=== PATIENT | female | born 1935 | race Caucasian/White ===

== ENCOUNTER 2018-01-15 16:49 | Emergency (ER) | payer MEDICARE, OTHER ==
[2018-01-15] MEDS ORDERED: Sodium Chloride 0.9% 10 ML Syringe FLUSH PRN (17:24)
[2018-01-15 18:06] LABS: ANION GAP 7.3 mmol/L (10-20)
[2018-01-15] MEDS: Iopamidol 612 MG/ML 100 ML Bottle IVPUSH ONE (18:59)
--- NOTE | 2018-01-15 19:06 | EDM.PDOC ---
<Justin Coffman W - Last Filed: 01/15/18 19:06> ED HPI GENERAL MEDICAL PROBLEM - General Chief Complaint: General Time Seen by Provider: 01/15/18 16:58 Source of Information: Reports: Patient, Family History Limitations: Reports: No Limitations - History of Present Illness INITIAL COMMENTS - FREE TEXT/NARRATIVE: Pt presents to ER with complaints of "pounding" sensation in her head that she has been experiencing intermittently for the past several days. She states that she has been checking her BP and notes that the pounding is present more often when her BP is elevated. Denies any head trauma. She states that this has never happened before in the past. She denies any recent illness. Does complain of some mild intermittent R sided headache the accompanies the pounding. She denies any "wooshing" or mechanical noises. Seems to isolate to R side. No facial numbness or extremity weakness/paresthesia. No difficulty with speech or ambulation. - Related Data Allergies Allergy/AdvReac Type Severity Reaction Status Date / Time atorvastatin [From Lipitor] Allergy Other Verified 01/15/18 17:19 Rbcayqy-Fad-Eoa Reductase Allergy Other Verified 01/15/18 17:19 Inhibitor Home Meds: Home Meds Aspirin [Halfprin] 81 mg PO DAILY 03/03/15 [History] Cholecalciferol (Vitamin D3) [Vitamin D3] 1,000 units PO DAILY 03/03/15 [History ] Lisinopril 10 mg PO DAILY 03/03/15 [History] Metoprolol Succinate [Toprol XL] 0.5 tab PO DAILY 03/03/15 [History] glipiZIDE [Glipizide ER] 10 mg PO BID 03/03/15 [History] sitaGLIPtin Phos/Metformin HCl [Janumet 50-1,000 MG] 1 tab PO BID 03/03/15 [ History] Multivitamin with Minerals [Multiple Vitamin] 1 tab PO DAILY 01/15/18 [History] Oxybutynin 5 mg PO BID 01/15/18 [History] Pioglitazone [Actos] 15 mg PO DAILY 01/15/18 [History] Past Medical History HEENT History: Reports: Other (See Below) Other HEENT History: hearing loss Cardiovascular History: Reports: High Cholesterol, Hypertension Other Gastrointestinal History: malignant neoplasm of colon, Genitourinary History: Reports: Other (See Below) Other Genitourinary History: mixed incontinence urge and stress. ecoli UTI Musculoskeletal History: Reports: Osteoarthritis, Other (See Below) Other Musculoskeletal History: trochanteric bursitis Psychiatric History: Reports: Anxiety Endocrine/Metabolic History: Reports: Diabetes, Type II Oncologic (Cancer) History: Reports: Colon - Past Surgical History GI Surgical History: Reports: Appendectomy, Cholecystectomy, Colon, Colonoscopy Other GI Surgeries/Procedures: colon resection 1999, Social & Family History - Tobacco Use Smoking Status *Q: Never Smoker - Recreational Drug Use Recreational Drug Use: No ED ROS GENERAL - Review of Systems Review Of Systems: See Below Constitutional: Reports: No Symptoms HEENT: Reports: No Symptoms Respiratory: Reports: No Symptoms Cardiovascular: Reports: No Symptoms Endocrine: Reports: No Symptoms GI/Abdominal: Reports: No Symptoms : Reports: No Symptoms Musculoskeletal: Reports: No Symptoms Skin: Reports: No Symptoms Neurological: Reports: Headache, Other (see HPI) Psychiatric: Reports: No Symptoms Hematologic/Lymphatic: Reports: No Symptoms Immunologic: Reports: No Symptoms ED EXAM, GENERAL - Physical Exam Exam: See Below Exam Limited By: No Limitations General Appearance: Alert, WD/WN, No Apparent Distress Eye Exam: Bilateral Eye: EOMI, Normal Fundi, Normal Inspection, PERRL Head: Atraumatic, Normocephalic Neck: Normal Inspection, Supple, Non-Tender, Full Range of Motion Respiratory/Chest: No Respiratory Distress, Lungs Clear, Normal Breath Sounds, No Accessory Muscle Use, Chest Non-Tender Cardiovascular: Normal Peripheral Pulses, Regular Rate, Rhythm, No Edema, No Gallop, No JVD, No Murmur, No Rub Peripheral Pulses: 4+: Radial (L), Radial (R) GI/Abdominal: Normal Bowel Sounds, Soft, Non-Tender, No Organomegaly, No Distention, No Abnormal Bruit, No Mass (Female) Exam: Deferred Rectal (Female) Exam: Deferred Back Exam: Normal Inspection, Full Range of Motion, NT Extremities: Normal Inspection, Normal Range of Motion, Non-Tender, Normal Capillary Refill, No Pedal Edema Neurological: Alert, Oriented, CN II-XII Intact, Normal Cognition, Normal Gait, Normal Reflexes, No Motor/Sensory Deficits Psychiatric: Normal Affect, Normal Mood Skin Exam: Warm, Dry, Intact, Normal Color, No Rash Lymphatic: No Adenopathy Course - Vital Signs Last Recorded V/S: Last Vital Signs Temp 36.8 C 01/15/18 16:55 Pulse 83 01/15/18 16:55 Resp 18 01/15/18 16:55 BP 155/80 H 01/15/18 16:55 Pulse Ox 94 L 01/15/18 16:55 - Orders/Labs/Meds Orders: Active Orders 24 hr Category Date Time Status Ang Head [CT] Stat Exams 01/15/18 17:25 Taken CTA Neck W & W/O Contrast [Ang Neck] [CT] Stat Exams 01/15/18 17:25 Taken Sodium Chloride 0.9% [Saline Flush] Med 01/15/18 17:24 Active 10 ml FLUSH ASDIRECTED PRN Peripheral IV Insertion Adult [OM.PC] Routine Oth 01/15/18 17:25 Ordered Medication Orders Sodium Chloride (Saline Flush) 10 ml FLUSH ASDIRECTED PRN PRN Reason: Keep Vein Open Labs: Laboratory Tests 01/15/18 01/15/18 01/15/18 Range/Units 17:35 17:35 17:35 WBC 4.7 (4.0-10.0) x10^3/uL RBC 4.29 (4.00-5.50) x10^6/uL Hgb 13.4 (12.0-16.0) g/dL Hct 39.0 (33.0-47.0) % MCV 90.9 (78.0-93.0) fL MCH 31.2 (26.0-32.0) pg MCHC 34.4 (32.0-36.0) g/dL RDW Coeff of Blanka 13.6 (10.0-15.0) % Plt Count 131 (130-400) x10^3/uL Neut % (Auto) 48.8 L (50.0-80.0) % Lymph % (Auto) 39.5 (25.0-50.0) % Blanco % (Auto) 7.7 (2.0-11.0) % Eos % (Auto) 3.6 (0.0-4.0) % Baso % (Auto) 0.4 (0.2-1.2) % PT 10.2 (9.6-11.4) SEC INR 1.0 L (2.0-3.5) Sodium 133 L (136-145) mmol/L Potassium 4.3 (3.5-5.1) mmol/L Chloride 106 (98-107) mmol/L Carbon Dioxide 24 (21-32) mmol/L Anion Gap 7.3 L (10-20) mmol/L BUN 14 (7-18) mg/dL Creatinine 0.9 (0.55-1.02) mg/dL Est Cr Clr Drug Dosing 46.94 mL/min Estimated GFR (MDRD) 60 Glucose 180 H (74-106) mg/dL Calcium 10.1 (8.5-10.1) mg/dL Corrected Calcium 10.66 H (8.5-10.1) mg/dL Total Bilirubin 0.2 (0.2-1.0) mg/dL AST 15 (15-37) U/L ALT 24 (14-59) U/L Alkaline Phosphatase 94 (46-116) U/L C-Reactive Protein 0.2 (<=0.9) mg/dL Total Protein 6.9 (6.4-8.2) g/dL Albumin 3.3 L (3.4-5.0) g/dL Globulin 3.6 Albumin/Globulin Ratio 0.92 Meds: Medications Generic Name Dose Route Start Last Admin Trade Name Freq PRN Reason Stop Dose Admin Sodium Chloride 10 ml 01/15/18 17:24 Saline Flush FLUSH ASDIRECTED PRN Keep Vein Open Discontinued Medications Generic Name Dose Route Start Last Admin Trade Name Freq PRN Reason Stop Dose Admin Iopamidol 100 ml 01/15/18 18:45 01/15/18 18:59 Isovue-300 (61%) IVPUSH 01/15/18 18:46 100 ml ONETIME ONE Administration Departure - Departure Disposition: Home, Self-Care 01 Clinical Impression: Hypertension - Discharge Information Instructions: Managing Your Hypertension, Hypertension Referrals: Josefa Nguyen DO [Primary Care Provider] - Forms: ED Department Discharge Additional Instructions: Please follow up with Dr. Nguyen regarding your headaches. These are likely a result of high blood pressure. You had a normal CTA of the head and neck. Drink plenty of water. If you have any questions or concerns, you can call at any time. <Momo Walton - Last Filed: 01/15/18 20:04> Departure - Departure Time of Disposition: 20:04 Condition: Good - Discharge Information *PRESCRIPTION DRUG MONITORING PROGRAM REVIEWED*: Not Applicable *COPY OF PRESCRIPTION DRUG MONITORING REPORT IN PATIENT BARRETT: Not Applicable - Problem List & Annotations (1) Hypertension SNOMED Code(s): 85678709 Code(s): I10 - ESSENTIAL (PRIMARY) HYPERTENSION Status: Acute Priority: Low Current Visit: Yes Qualifiers: Hypertension type: unspecified Qualified Code(s): I10 - Essential (primary ) hypertension - Problem List Review Problem List Initiated/Reviewed/Updated: Yes - Assessment/Plan Assessment:: headache hypertension Plan: Please follow up with Dr. Nguyen regarding your headaches. These are likely a result of high blood pressure. You had a normal CTA of the head and neck. Drink plenty of water. If you have any questions or concerns, you can call at any time.
== END 2018-01-15 20:11 | disposition home or self-care (01) ==
LOC: VM.ED 16:49
DX: I10 Essential (primary) hypertension (principal); E11.9 Type 2 diabetes mellitus without complications; E78.00 Pure hypercholesterolemia, unspecified; F41.9 Anxiety disorder, unspecified; Z79.84 Long term (current) use of oral hypoglycemic drugs; Z79.82 Long term (current) use of aspirin; Z79.899 Other long term (current) drug therapy; Z88.8 Allergy status to other drugs, medicaments and biological substances
CPT/HCPCS: 36415; 70496; 70498; 80053; 85025; 85610; 86140; 99284; Q9967; 99283-GF

== ENCOUNTER 2018-10-10 10:18 | Emergency (ER) | payer MEDICARE, OTHER ==
--- NOTE | 2018-10-10 11:01 | EDM.PDOC ---
ED HPI GENERAL MEDICAL PROBLEM - General Chief Complaint: Lower Extremity Injury/Pain Stated Complaint: LOWER LIMB Time Seen by Provider: 10/10/18 10:26 Source of Information: Reports: Patient History Limitations: Reports: No Limitations - History of Present Illness INITIAL COMMENTS - FREE TEXT/NARRATIVE: Patient reports a fall in July and has had back, hip and leg pain since. She has been in physical therapy and did have this yesterday. She reports they told her to get x-rays. She states she has pain that starts in the bilateral lower back that radiates down both legs. Denies numbness and tingling. Is able to walk but is painful. She denies headache, fever, chills, chest pain, SOB, chronic diarrhea from removal of section of colon due to colon cancer 18 years ago. She also denies blood in urine or stools. She has no other complaints. Onset: Gradual Duration: Getting Worse, Intermittent Location: Reports: Back, Lower Extremity, Left, Lower Extremity, Right Quality: Reports: Ache Severity: Moderate Worsens with: Reports: Movement Associated Symptoms: Reports: No Other Symptoms Bilateral Hip Pain Score (Numeric/FACES): 8 - Related Data Allergies Allergy/AdvReac Type Severity Reaction Status Date / Time atorvastatin [From Lipitor] Allergy Other Verified 10/10/18 10:33 Ydyxskr-Egq-Epv Reductase Allergy Other Verified 10/10/18 10:33 Inhibitor Home Meds: Home Meds Aspirin [Halfprin] 81 mg PO DAILY 03/03/15 [History] Cholecalciferol (Vitamin D3) [Vitamin D3] 1,000 units PO DAILY 03/03/15 [History ] Lisinopril 10 mg PO DAILY 03/03/15 [History] Metoprolol Succinate [Toprol XL] 1 tab PO DAILY 03/03/15 [History] glipiZIDE [Glipizide ER] 10 mg PO BID 03/03/15 [History] sitaGLIPtin Phos/Metformin HCl [Janumet 50-1,000 MG] 1 tab PO BID 03/03/15 [ History] Multivitamin with Minerals [Multiple Vitamin] 1 tab PO DAILY 01/15/18 [History] Oxybutynin 5 mg PO BID 01/15/18 [History] Pioglitazone [Actos] 15 mg PO DAILY 01/15/18 [History] Past Medical History HEENT History: Reports: Other (See Below) Other HEENT History: hearing loss Cardiovascular History: Reports: High Cholesterol, Hypertension Other Gastrointestinal History: malignant neoplasm of colon, Genitourinary History: Reports: Other (See Below) Other Genitourinary History: mixed incontinence urge and stress. ecoli UTI Musculoskeletal History: Reports: Osteoarthritis, Other (See Below) Other Musculoskeletal History: trochanteric bursitis Psychiatric History: Reports: Anxiety Endocrine/Metabolic History: Reports: Diabetes, Type II Oncologic (Cancer) History: Reports: Colon - Past Surgical History GI Surgical History: Reports: Appendectomy, Cholecystectomy, Colon, Colonoscopy Other GI Surgeries/Procedures: colon resection 1999, Social & Family History - Tobacco Use Smoking Status *Q: Unknown Ever Smoked Review of Systems - Review of Systems Review Of Systems: See Below Constitutional: Reports: No Symptoms Eyes: Reports: No Symptoms Ears: Reports: No Symptoms Nose: Reports: No Symptoms Mouth/Throat: Reports: No Symptoms Respiratory: Reports: No Symptoms Cardiovascular: Reports: No Symptoms GI/Abdominal: Reports: No Symptoms Genitourinary: Reports: No Symptoms Musculoskeletal: Reports: Back Pain, Leg Pain Skin: Reports: No Symptoms Neurological: Reports: No Symptoms Psychiatric: Reports: No Symptoms ED EXAM, GENERAL - Physical Exam Exam: See Below Exam Limited By: No Limitations General Appearance: Alert, WD/WN, No Apparent Distress Eye Exam: Bilateral Eye: EOMI, Normal Inspection, PERRL Ears: Normal TMs Nose: Normal Inspection, Normal Mucosa, No Blood Throat/Mouth: Normal Inspection, Normal Lips, Normal Teeth, Normal Gums, Normal Oropharynx, Normal Voice, No Airway Compromise Head: Atraumatic, Normocephalic Neck: Normal Inspection, Supple, Non-Tender, Full Range of Motion Respiratory/Chest: No Respiratory Distress, Lungs Clear, Normal Breath Sounds, No Accessory Muscle Use, Chest Non-Tender Cardiovascular: Normal Peripheral Pulses, Regular Rate, Rhythm, No Edema, No Gallop, No JVD, No Murmur, No Rub Peripheral Pulses: 2+: Posterior Tibial (L), Posterior Tibial (R), Dorsalis Pedis (L), Dorsalis Pedis (R) GI/Abdominal: Normal Bowel Sounds, Soft, Non-Tender, No Organomegaly, No Distention, No Abnormal Bruit, No Mass Back Exam: Normal Inspection, Full Range of Motion, NT Extremities: Normal Inspection, Normal Range of Motion, Non-Tender, Normal Capillary Refill, No Pedal Edema Neurological: Alert, Oriented, CN II-XII Intact, Normal Cognition, Normal Gait, Normal Reflexes, No Motor/Sensory Deficits Psychiatric: Normal Affect, Normal Mood Skin Exam: Warm, Dry, Intact, Normal Color, No Rash Lymphatic: No Adenopathy Course - Vital Signs Last Recorded V/S: Last Vital Signs Temp 36.4 C 10/10/18 10:18 Pulse 76 10/10/18 10:18 Resp 18 10/10/18 10:18 BP 156/75 H 10/10/18 10:18 Pulse Ox 96 10/10/18 10:18 - Orders/Labs/Meds Orders: Active Orders 24 hr Category Date Time Status Lumbar Spine wo Cont [CT] Stat Exams 10/10/18 10:27 Ordered Pelvis wo Cont [CT] Stat Exams 10/10/18 10:27 Ordered URINALYSIS W/MICROSCOPIC [UA W/MICROSCOPIC] [URIN] Stat Lab 10/10/18 10:37 Ordered - Radiology Interpretation Free Text/Narrative:: CT of pelvis shows age related degenerative disease with no acute process CT of lumbar spine show several levels of spinal stenosis and foraminal narrowing bilaterally but no acute fractures Departure - Departure Time of Disposition: 12:23 Disposition: Home, Self-Care 01 Condition: Fair Clinical Impression: Urinary tract infection, Lumbar back pain with radiculopathy affecting lower extremity - Discharge Information *PRESCRIPTION DRUG MONITORING PROGRAM REVIEWED*: No *COPY OF PRESCRIPTION DRUG MONITORING REPORT IN PATIENT BARRETT: No Instructions: Urinary Tract Infection, Adult, [id number], Back Exercises, Radicular Pain, Nitrofurantoin tablets or capsules, Probiotics Additional Instructions: Plan 1. Stay well hydrated 2. Take the full course of the antibiotic macrobid even if feeling better. Take 1 tablet twice a day for 5 days. We will call you with any changes you may need to make to the antibiotic 3. Follow up with primary care to have an MRI ordered. Continue with physical therapy 4. Follow up with primary after 7-10 days to be sure urine is clear of infection 5. Take the muscle relaxer twice daily for pain 6. Scans today were negative for any acute fractures 7. Please call if you have any other questions or concerns - Problem List & Annotations (1) Lumbar back pain with radiculopathy affecting lower extremity SNOMED Code(s): 311186540, 510660288 Code(s): M54.16 - RADICULOPATHY, LUMBAR REGION Status: Acute Priority: Medium Current Visit: Yes (2) Urinary tract infection SNOMED Code(s): 50113903 Code(s): N39.0 - URINARY TRACT INFECTION, SITE NOT SPECIFIED Status: Acute Priority: Low Current Visit: Yes Qualifiers: Urinary tract infection type: site unspecified Hematuria presence: without hematuria Qualified Code(s): N39.0 - Urinary tract infection, site not specified - Problem List Review Problem List Initiated/Reviewed/Updated: Yes - My Orders Last 24 Hours: My Active Orders 10/10/18 10:27 Lumbar Spine wo Cont [CT] Stat Pelvis wo Cont [CT] Stat 10/10/18 10:37 URINALYSIS W/MICROSCOPIC [UA W/MICROSCOPIC] [URIN] Stat - Assessment/Plan Last 24 Hours: My Active Orders 10/10/18 10:27 Lumbar Spine wo Cont [CT] Stat Pelvis wo Cont [CT] Stat 10/10/18 10:37 URINALYSIS W/MICROSCOPIC [UA W/MICROSCOPIC] [URIN] Stat Assessment:: lumbar pain with bilateral radiculopathy to lower extremities Plan: Plan 1. Stay well hydrated 2. Take the full course of the antibiotic macrobid even if feeling better. Take 1 tablet twice a day for 5 days. We will call you with any changes you may need to make to the antibiotic 3. Follow up with primary care to have an MRI ordered. Continue with physical therapy 4. Follow up with primary after 7-10 days to be sure urine is clear of infection 5. Take the muscle relaxer twice daily for pain 6. Scans today were negative for any acute fractures 7. Please call if you have any other questions or concerns
--- NOTE | 2018-10-10 11:41 | CT ---
[id number] CT/CT Lumbar Spine WO IV Exam: CT Lumbar Spine WO IV Clinical Data: BACK PAIN COMPARISON: NO PREVIOUS SIMILAR EXAM IS AVAILABLE FINDINGS: L5-S1: There are degenerative facet changes. There is moderate bilateral foraminal narrowing. L4-L5: There is severe spinal stenosis. There is posterior osteophyte. There is severe bilateral foraminal narrowing. L3-L4: There is severe spinal stenosis. There is severe bilateral foraminal narrowing. There is posterior osteophyte. There is ligamentum flavum hypertrophy. L2-L3: There is borderline spinal stenosis. There is moderate bilateral foraminal narrowing. L1-L2: There is extreme spinal stenosis. There is severe bilateral foraminal narrowing. T12-L1: There are degenerative facet changes. T11-T12: There are degenerative facet changes. 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 Ricardo Sampson MD 10/10/18 [id number] Thank you for allowing us to participate in the care of your patient.
--- NOTE | 2018-10-10 11:42 | CT ---
[id number] CT/CT Pelvis WO IV Exam: CT Pelvis WO IV Clinical Data: BACK PAIN COMPARISON: NO PREVIOUS SIMILAR EXAM IS AVAILABLE FINDINGS: There is uncomplicated diverticular disease. There are degenerative changes of the sacroiliac joints and both hips. There are diffuse atheromatous calcifications. There appeared to residual fibroid changes of uterus. IMPRESSION: AGE-RELATED DEGENERATIVE CHANGES. Ricardo Sampson MD 10/10/18 [id number] Thank you for allowing us to participate in the care of your patient.
== END 2018-10-10 12:23 | disposition home or self-care (01) ==
LOC: VM.ED 10:18
DX: M48.061 Spinal stenosis, lumbar region without neurogenic claudication (principal); M54.16 Radiculopathy, lumbar region; N39.0 Urinary tract infection, site not specified; E78.00 Pure hypercholesterolemia, unspecified; I10 Essential (primary) hypertension; E11.9 Type 2 diabetes mellitus without complications; F41.9 Anxiety disorder, unspecified; Z88.8 Allergy status to other drugs, medicaments and biological substances; Z79.82 Long term (current) use of aspirin
CPT/HCPCS: 72131; 72192; 81001; 87086; 87088; 87186; 99284-25

== ENCOUNTER 2019-04-13 10:13 | Emergency (ER) | payer MEDICARE, OTHER ==
[2019-04-13] MEDS ORDERED: Sodium Chloride 0.9% 10 ML Syringe FLUSH PRN (10:34)
[2019-04-13] MEDS ORDERED: Ondansetron 4 MG/2 ML SDV IVPUSH ONE (10:36)
[2019-04-13] MEDS ORDERED: Sodium Chloride 0.9% 1,000 ML IV ONE (10:36)
--- NOTE | 2019-04-13 10:42 | EDM.PDOC ---
ED HPI GENERAL MEDICAL PROBLEM - General Chief Complaint: Gastrointestinal Problem Stated Complaint: abd pain Time Seen by Provider: 04/13/19 10:18 Source of Information: Reports: Patient History Limitations: Reports: No Limitations - History of Present Illness INITIAL COMMENTS - FREE TEXT/NARRATIVE: Patient comes into the emergency department with severe abdominal pain, nausea, vomiting. Patient states her symptoms started last evening after supper. She does admit to having similar symptoms about 1 week ago but they did resolve on their own after about one day. She states that last evening the symptoms came on abruptly and have been consistent. She states that she has vomited at least 5 -6 times. She also states that she has significant nausea with this. She endorses that she has had loose bowel movements and 1 in which she was unable to make to the bathroom in time. Patient does state that they have an indoor dog and cat. Strong urine and feces order is noted from the patient. Fecal content is also noted on the patient's socks and pants along with large amount of animal hair. Patient states that she has felt warm but she does not recall having a fever but has body aches. Patient also describes having a significant amount of abdominal cramping she rates the pain about 8 out of 10 denies it as a sharp, shooting, cramping sensation across the entire abdomen. Patient states that both of her animals are indoor animals and they do utilize the bathroom in the house. She also states that at times they do not make it to their designated bathroom areas. She denies that she is not up-to-date on her influenza vaccine. Patient also states that her animals are not up-to-date on vaccines or immunizations. She denies any other concerns or complaints Onset: Gradual Quality: Reports: Burning, Stabbing, Other (cramping) Improves with: Reports: None Worsens with: Reports: None Associated Symptoms: Reports: Loss of Appetite, Malaise, Nausea/Vomiting, Weakness Abdominal Pain Score (Numeric/FACES): 8 - Related Data Allergies Allergy/AdvReac Type Severity Reaction Status Date / Time atorvastatin [From Lipitor] Allergy Other Verified 04/13/19 10:34 [id number] Reductase Allergy Other Verified 04/13/19 10:34 Inhibitor Home Meds: Home Meds Aspirin [Halfprin] 81 mg PO DAILY 03/03/15 [History] Cholecalciferol (Vitamin D3) [Vitamin D3] 1,000 units PO DAILY 03/03/15 [History ] Lisinopril 10 mg PO DAILY 03/03/15 [History] Metoprolol Succinate [Toprol XL] 1 tab PO DAILY 03/03/15 [History] glipiZIDE [Glipizide ER] 10 mg PO BID 03/03/15 [History] sitaGLIPtin Phos/Metformin HCl [Janumet 50-1,000 MG] 1 tab PO BID 03/03/15 [ History] Multivitamin with Minerals [Multiple Vitamin] 1 tab PO DAILY 01/15/18 [History] Oxybutynin 5 mg PO BID 01/15/18 [History] Pioglitazone [Actos] 15 mg PO DAILY 01/15/18 [History] Past Medical History HEENT History: Reports: Other (See Below) Other HEENT History: hearing loss Cardiovascular History: Reports: High Cholesterol, Hypertension Other Gastrointestinal History: malignant neoplasm of colon, Genitourinary History: Reports: Other (See Below) Other Genitourinary History: mixed incontinence urge and stress. ecoli UTI Musculoskeletal History: Reports: Osteoarthritis, Other (See Below) Other Musculoskeletal History: trochanteric bursitis Psychiatric History: Reports: Anxiety Endocrine/Metabolic History: Reports: Diabetes, Type II Oncologic (Cancer) History: Reports: Colon - Past Surgical History GI Surgical History: Reports: Appendectomy, Cholecystectomy, Colon, Colonoscopy Other GI Surgeries/Procedures: colon resection 1999, ED ROS GENERAL - Review of Systems Review Of Systems: See Below Constitutional: Reports: Malaise, Weakness, Fatigue, Decreased Appetite HEENT: Reports: No Symptoms Respiratory: Reports: No Symptoms Cardiovascular: Reports: No Symptoms Endocrine: Reports: No Symptoms GI/Abdominal: Reports: Abdominal Pain, Anorexia, Diarrhea, Decreased Appetite, Flatus, Nausea, Vomiting : Reports: No Symptoms Musculoskeletal: Reports: No Symptoms Skin: Reports: No Symptoms Neurological: Reports: No Symptoms Psychiatric: Reports: No Symptoms Hematologic/Lymphatic: Reports: No Symptoms Immunologic: Reports: No Symptoms ED EXAM, GI/ABD - Physical Exam Exam: See Below Text/Narrative:: Foul animal feces and urine smell. Also noted large amount of dried feces on patients, clothing, shoes, and socks. Exam Limited By: No Limitations General Appearance: Alert, WD/WN, No Apparent Distress Head: Atraumatic Neck: Normal Inspection, Supple, Non-Tender, Full Range of Motion Respiratory/Chest: No Respiratory Distress, Lungs Clear, Normal Breath Sounds, No Accessory Muscle Use, Chest Non-Tender Cardiovascular: Normal Peripheral Pulses, Regular Rate, Rhythm, No Edema, No Gallop, No JVD, No Murmur, No Rub GI/Abdominal Exam: Normal Bowel Sounds, Soft, Tender Extremities: Normal Inspection, Normal Range of Motion, Non-Tender, No Pedal Edema, Normal Capillary Refill Neurological: Alert, Oriented Psychiatric: Normal Affect, Normal Mood Skin Exam: Warm, Dry, Intact Course - Vital Signs Last Recorded V/S: Last Vital Signs Temp 36.8 C 04/13/19 10:15 Pulse 94 04/13/19 10:15 Resp 18 04/13/19 10:15 BP 142/69 H 04/13/19 10:15 Pulse Ox 95 04/13/19 10:15 - Orders/Labs/Meds Orders: Active Orders 24 hr Category Date Time Status OVA & PARASITES BY IMMUNOASSAY [MREF] Stat Lab 04/13/19 10:34 Ordered STOOL CULTURE/SHIGA TOXIN [MREF] Stat Lab 04/13/19 10:34 Ordered TOXOPLASMA ABS IGG/IGM [REF] Stat Lab 04/13/19 10:39 Received Sodium Chloride 0.9% [Saline Flush] Med 04/13/19 10:34 Active 10 ml FLUSH ASDIRECTED PRN Peripheral IV Insertion Adult [OM.PC] Stat Oth 04/13/19 10:33 Ordered Medication Orders Sodium Chloride (Saline Flush) 10 ml FLUSH ASDIRECTED PRN PRN Reason: Keep Vein Open Labs: Laboratory Tests 04/13/19 04/13/19 04/13/19 Range/Units 10:39 10:39 12:35 WBC 6.4 (4.0-10.0) x10^3/uL RBC 4.33 (4.00-5.50) x10^6/uL Hgb 13.4 (12.0-16.0) g/dL Hct 38.1 (33.0-47.0) % MCV 88.0 (78.0-93.0) fL MCH 30.9 (26.0-32.0) pg MCHC 35.2 (32.0-36.0) g/dL RDW Coeff of Blanka 13.2 (10.0-15.0) % Plt Count 333 D (130-400) x10^3/uL Neut % (Auto) 67.1 (50.0-80.0) % Lymph % (Auto) 25.0 (25.0-50.0) % Mcintosh % (Auto) 5.5 (2.0-11.0) % Eos % (Auto) 1.9 (0.0-4.0) % Baso % (Auto) 0.5 (0.2-1.2) % Sodium 134 L (136-145) mmol/L Potassium 4.2 (3.5-5.1) mmol/L Chloride 98 (98-107) mmol/L Carbon Dioxide 22 (21-32) mmol/L Anion Gap 18.2 (10-20) mmol/L BUN 14 (7-18) mg/dL Creatinine 1.0 (0.55-1.02) mg/dL Est Cr Clr Drug Dosing 40.00 mL/min Estimated GFR (MDRD) 53 Glucose 197 H (74-106) mg/dL Calcium 9.5 (8.5-10.1) mg/dL Corrected Calcium 10.30 H (8.5-10.1) mg/dL Total Bilirubin 0.3 (0.2-1.0) mg/dL AST 14 L (15-37) U/L ALT 21 (14-59) U/L Alkaline Phosphatase 78 (46-116) U/L Total Protein 6.8 (6.4-8.2) g/dL Albumin 3.0 L (3.4-5.0) g/dL Globulin 3.8 Albumin/Globulin Ratio 0.79 Urine Color Yellow (YELLOW) Urine Appearance Turbid H (CLEAR) Urine pH 6.5 (5.0-8.0) Ur Specific Hudson 1.015 Urine Protein Negative (NEGATIVE) mg/dL Urine Glucose (UA) 250 H (NEGATIVE) mg/dL Urine Ketones 15 H (NEGATIVE) mg/dL Urine Occult Blood Trace-lysed H (NEGATIVE) Urine Nitrite Negative (NEGATIVE) Urine Bilirubin Negative (NEGATIVE) Urine Urobilinogen 0.2 (0.2) EU/dL Ur Leukocyte Esterase Negative (NEGATIVE) Urine RBC 0-5 (NOT SEEN) /HPF Urine WBC 5-10 H (NOT SEEN) /HPF Ur Squamous Epith Cells Moderate H (NEGATIVE) /HPF Urine Bacteria Many H (NEGATIVE) /HPF Urine Mucus Few H (NEGATIVE) /LPF Meds: Medications Generic Name Dose Route Start Last Admin Trade Name Freq PRN Reason Stop Dose Admin Sodium Chloride 10 ml 04/13/19 10:34 Saline Flush FLUSH ASDIRECTED PRN Keep Vein Open Discontinued Medications Generic Name Dose Route Start Last Admin Trade Name Freq PRN Reason Stop Dose Admin Sodium Chloride 1,000 mls @ 1,000 mls/hr 04/13/19 10:36 04/13/19 10:56 Normal Saline IV 04/13/19 11:35 1,000 mls/hr ONETIME ONE Administration Iopamidol 100 ml 04/13/19 10:58 04/13/19 11:36 Isovue-300 (61%) IVPUSH 04/13/19 10:59 100 ml ONETIME ONE Administration Ondansetron HCl 4 mg 04/13/19 10:36 04/13/19 10:57 Zofran IVPUSH 04/13/19 10:37 4 mg ONETIME ONE Administration Departure - Departure Time of Disposition: 12:30 Disposition: Home, Self-Care 01 Condition: Good Clinical Impression: Vomiting, Diarrhea - Discharge Information *PRESCRIPTION DRUG MONITORING PROGRAM REVIEWED*: Not Applicable *COPY OF PRESCRIPTION DRUG MONITORING REPORT IN PATIENT BARRETT: Not Applicable Instructions: Nausea and Vomiting, Adult, Nausea, Adult, [id number] Referrals: Josefa Nguyen DO [Primary Care Provider] - Forms: ED Department Discharge Additional Instructions: 1. Increase her water intake 2. Rest 3. use the stool sample to collect stool. Return sample within 1 hour of collection 4. Follow up Tuesday in the clinic for re-evaluation 5. Return if symptoms progress or worsen 6. Call with any questions or concerns - Problem List Review Problem List Initiated/Reviewed/Updated: Yes - My Orders Last 24 Hours: My Active Orders 04/13/19 10:33 Peripheral IV Insertion Adult [OM.PC] Stat 04/13/19 10:34 OVA & PARASITES BY IMMUNOASSAY [MREF] Stat STOOL CULTURE/SHIGA TOXIN [MREF] Stat Sodium Chloride 0.9% [Saline Flush] 10 ml FLUSH ASDIRECTED PRN 04/13/19 10:39 TOXOPLASMA ABS IGG/IGM [REF] Stat - Assessment/Plan Last 24 Hours: My Active Orders 04/13/19 10:33 Peripheral IV Insertion Adult [OM.PC] Stat 04/13/19 10:34 OVA & PARASITES BY IMMUNOASSAY [MREF] Stat STOOL CULTURE/SHIGA TOXIN [MREF] Stat Sodium Chloride 0.9% [Saline Flush] 10 ml FLUSH ASDIRECTED PRN 04/13/19 10:39 TOXOPLASMA ABS IGG/IGM [REF] Stat Assessment:: 1. Nausea 2. Vomiting 3. Abdominal pain 4. fatigue Plan: 1. Labs completed in ER. Results reviewed with patient 2. IV initiated and fluids provided in the ER 3. Zofran given in the ER for nausea 4. Stool sample ordered for further investigation regarding potential infectious agents from her animals-feces/urine 5. Rapid influenza completed. Results reviewed with the patient (-) negative findings 6. He does feel better after receiving IV fluids emergency department 7. Patient was unable to produce a fecal sample for evaluation 8. Dr. Tahkkar was contacted in regards to the patient and CT findings. Per discussion it is found that there is not enough information to warn acute admission especially with the patient stating she feels better now and is no longer nauseated. Patient will be discharged with supplies to obtain a fecal sample to be brought back into our facility within 1 hour for evaluation. 9. The patient updated regarding CT findings. It is advised that she should follow-up in the clinic on Tuesday for reevaluation 10. All questions and concerns addressed prior to admission
[2019-04-13] MEDS ORDERED: Iopamidol 612 MG/ML 100 ML Bottle IVPUSH ONE (10:58)
[2019-04-13 11:16] LABS: ANION GAP 18.2 mmol/L (10-20)
--- NOTE | 2019-04-13 12:10 | CT ---
[id number] CT/CT Abdomen Pelvis W IV EXAM: CT Abdomen Pelvis W IV CLINICAL DATA: SEVERE ABDOMEN PAIN. COMPARISON STUDY: October 11, 2018. FINDINGS: Dependent atelectasis at the lung bases bilaterally. Linear scarring is also noted at the lung bases. Coronary artery disease. Generalized hypodensity liver consistent with hepatic steatosis. The spleen, adrenal glands and kidneys are unremarkable. No bowel obstruction or inflammation. Colonic diverticulosis without evidence of acute diverticulitis. There is perirectal thickening and inflammatory change. No definite fluid collection is identified at this time. No lymphadenopathy, free fluid, or pneumoperitoneum. Circumferential wall thickening of the urinary bladder may related underdistention could be seen with acute cystitis. Scattered changes of spondylosis the spine. No fracture or osseous lesion. IMPRESSION: 1. Circumferential wall thickening of the urinary bladder may be related underdistention and can be seen with acute cystitis. Correlation with urinalysis is recommended. 2. Pararectal thickening and inflammatory change. While there is no definite fluid collection identified at this time. There may be developing perirectal collection. Clinical correlation is recommended. Carlos Voss DO 04/13/19 1339 Thank you for allowing us to participate in the care of your patient.
== END 2019-04-13 13:40 | disposition home or self-care (01) ==
LOC: VM.ED 10:13
DX: R11.2 Nausea with vomiting, unspecified (principal); R19.7 Diarrhea, unspecified; R10.9 Unspecified abdominal pain; R53.83 Other fatigue; I10 Essential (primary) hypertension; E78.00 Pure hypercholesterolemia, unspecified; E11.9 Type 2 diabetes mellitus without complications; F41.9 Anxiety disorder, unspecified; Z79.82 Long term (current) use of aspirin; Z79.4 Long term (current) use of insulin; Z79.899 Other long term (current) drug therapy; Z88.8 Allergy status to other drugs, medicaments and biological substances; Z85.038 Personal history of other malignant neoplasm of large intestine
CPT/HCPCS: 74177; 80053; 81001; 85025; 86777; 86778; 87804; 87804-59; 96361; 96374; 99284-25; 99284-GF; J2405; J7030; Q9967

== ENCOUNTER 2020-04-13 13:04 | Inpatient (IN) | payer MEDICARE, OTHER ==
[2020-04-13] MEDS ORDERED: Lactated Ringers 1,000 ML IV ONE (13:24)
[2020-04-13] MEDS ORDERED: Ondansetron 4 MG/2 ML SDV IV ONE (13:25)
--- NOTE | 2020-04-13 13:29 | EDM.PDOC ---
ED HPI GENERAL MEDICAL PROBLEM - General Stated Complaint: NVD weakness Time Seen by Provider: 04/13/20 13:15 Source of Information: Reports: Patient History Limitations: Reports: No Limitations - History of Present Illness INITIAL COMMENTS - FREE TEXT/NARRATIVE: Patient comes emergency department today from home with complaints of nausea vomiting chest pain and diarrhea. For the past 2 days the patient has had nausea vomiting and multiple bouts of very watery diarrhea to the point that she has been incontinent of stool multiple times. She also has a tightness in her chest that comes and goes primarily when she has vomiting. She has no more shortness of breath than her baseline. No fever no chills. She has lost her taste and smell. She does complain of generalized malaise fatigue no body aches. She also complains of generalized weakness. No abdominal pain other than when she vomits. No hematuria dysuria or urinary frequency. No black or tarry stools. She has not been exposed to anyone with Covid. SHe has been having about 1 loose stool aday more than normal. No foul smelling. Just finished a 5 day course of Cipro for a UTI from the Clinic. Middle Abdominal Pain Score (Numeric/FACES): 6 - Related Data Allergies Allergy/AdvReac Type Severity Reaction Status Date / Time atorvastatin [From Lipitor] Allergy Other Verified 04/13/19 10:34 Autibdl-Oin-Ava Reductase Allergy Other Verified 04/13/19 10:34 Inhibitor Home Meds: Home Meds Aspirin [Halfprin] 81 mg PO DAILY 03/03/15 [History] Cholecalciferol (Vitamin D3) [Vitamin D3] 1,000 units PO DAILY 03/03/15 [History] Lisinopril 10 mg PO DAILY 03/03/15 [History] Metoprolol Succinate [Toprol XL] 50 mg PO DAILY 03/03/15 [History] Multivitamin with Minerals [Multiple Vitamin] 1 tab PO DAILY 01/15/18 [History] Acetaminophen [Tylenol] 650 mg PO Q4H PRN 04/19/19 [History] Melatonin 3 mg PO BEDTIME 04/19/19 [History] glipiZIDE [Glucotrol] 10 mg PO BIDMEALS #60 tablet 04/26/19 [Rx] metFORMIN [Glucophage] 1,000 mg PO BID #60 tablet 04/26/19 [Rx] Past Medical History HEENT History: Reports: Other (See Below) Other HEENT History: hearing loss, wears glasses Cardiovascular History: Reports: High Cholesterol, Hypertension Other Gastrointestinal History: malignant neoplasm of colon, Genitourinary History: Reports: Other (See Below) Other Genitourinary History: mixed incontinence urge and stress. ecoli UTI Musculoskeletal History: Reports: Osteoarthritis, Other (See Below) Other Musculoskeletal History: trochanteric bursitis Psychiatric History: Reports: Anxiety Endocrine/Metabolic History: Reports: Diabetes, Type II Oncologic (Cancer) History: Reports: Colon - Infectious Disease History Infectious Disease History: Reports: Chicken Pox, Meningitis, Mumps, Rubella - Past Surgical History GI Surgical History: Reports: Appendectomy, Cholecystectomy, Colon, Colonoscopy Other GI Surgeries/Procedures: colon resection 1999, Social & Family History - Family History Family Medical History: No Pertinent Family History - Caffeine Use Caffeine Use: Reports: Coffee ED ROS GENERAL - Review of Systems Review Of Systems: Comprehensive ROS is negative, except as noted in HPI. ED EXAM, GENERAL - Physical Exam Exam: See Below Exam Limited By: No Limitations General Appearance: Alert, WD/WN, No Apparent Distress Eye Exam: Bilateral Eye: EOMI, PERRL Ears: Normal External Exam Nose: Normal Inspection Throat/Mouth: Normal Oropharynx. No: Normal Inspection (Oral mucosa is minimally dry. ) Head: Atraumatic, Normocephalic Neck: Normal Inspection, Supple, Non-Tender, Full Range of Motion Respiratory/Chest: No Respiratory Distress, Lungs Clear, Normal Breath Sounds, No Accessory Muscle Use, Chest Non-Tender Cardiovascular: Normal Peripheral Pulses, Regular Rate, Rhythm, Tachycardia Peripheral Pulses: 2+: Radial (L), Radial (R), Posterior Tibial (L), Posterior Tibial (R), Dorsalis Pedis (L), Dorsalis Pedis (R) GI/Abdominal: Normal Bowel Sounds, Soft, Non-Tender, No Distention, No Mass, Pelvis Stable (Female) Exam: Deferred Rectal (Female) Exam: Deferred Back Exam: Normal Inspection, Full Range of Motion Extremities: Normal Inspection, Normal Range of Motion, Normal Capillary Refill, Pedal Edema (1+ edema bilaterally) Neurological: Alert, Oriented, No Motor/Sensory Deficits Psychiatric: Normal Affect, Normal Mood Skin Exam: Warm, Dry, Intact, Normal Color #1 Interpretation EKG Date: 04/13/20 Time: 03:24 Rhythm: A-Fib Rate (Beats/Min): 102 [place]: Normal P-Wave: Present QRS: Normal ST-T: Normal QT: Normal Course - Vital Signs Last Recorded V/S: Last Vital Signs Temp 98.0 F 04/13/20 16:31 Pulse 85 04/13/20 16:31 Resp 16 04/13/20 16:31 BP 146/78 H 04/13/20 16:31 Pulse Ox 97 04/13/20 16:31 - Orders/Labs/Meds Orders: Active Orders 24 hr Category Date Time Status EKG Documentation Completion [RC] STAT Care 04/13/20 13:23 Active Abdomen Pelvis w Cont [CT] Stat Exams 04/13/20 14:51 Taken CULTURE BLOOD [BC] Stat Lab 04/13/20 15:27 Received CULTURE BLOOD [BC] Stat Lab 04/13/20 15:32 Received CULTURE URINE [RM] Stat Lab 04/13/20 13:08 Received LACTIC ACID [CHEM] Timed Lab 04/13/20 17:00 Ordered PROCALCITONIN [REF] Stat Lab 04/13/20 13:33 Received Lactated Ringers [Ringers, Lactated] 1,000 ml Med 04/13/20 15:00 Active IV ASDIRECTED Sodium Chloride 0.9% [Saline Flush] Med 04/13/20 13:08 Active 10 ml FLUSH ASDIRECTED PRN Blood Culture x2 Reflex Set [OM.PC] Stat Oth 04/13/20 14:45 Ordered Peripheral IV Insertion Adult [OM.PC] Stat Oth 04/13/20 13:08 Ordered Medication Orders Lactated Ringer's (Ringers, Lactated) 1,000 mls @ 125 mls/hr IV ASDIRECTED [facility] Last Admin: 04/13/20 15:02 Dose: 125 mls/hr Documented by: BIETAMY Sodium Chloride (Saline Flush) 10 ml FLUSH ASDIRECTED PRN PRN Reason: Keep Vein Open Labs: Laboratory Tests 04/13/20 04/13/20 04/13/20 Range/Units 13:08 13:30 13:33 WBC 9.0 (4.0-10.0) x10^3/uL RBC 4.66 (4.00-5.50) x10^6/uL Hgb 14.0 D (12.0-16.0) g/dL Hct 41.1 (33.0-47.0) % MCV 88.2 (78.0-93.0) fL MCH 30.0 (26.0-32.0) pg MCHC 34.1 (32.0-36.0) g/dL RDW Coeff of Blanka 13.7 (10.0-15.0) % Plt Count 425 H (130-400) x10^3/uL Neut % (Auto) 87.2 H (50.0-80.0) % Lymph % (Auto) 9.0 L (25.0-50.0) % Carbon % (Auto) 3.6 (2.0-11.0) % Eos % (Auto) 0.1 (0.0-4.0) % Baso % (Auto) 0.1 L (0.2-1.2) % Sodium (136-145) mmol/L Potassium (3.5-5.1) mmol/L Chloride (98-107) mmol/L Carbon Dioxide (21-32) mmol/L Anion Gap (10-20) mmol/L BUN (7-18) mg/dL Creatinine (0.55-1.02) mg/dL Est Cr Clr Drug Dosing mL/min Estimated GFR (MDRD) Glucose (74-106) mg/dL Lactic Acid (0.4-2.0) mmol/L Calcium (8.5-10.1) mg/dL Corrected Calcium (8.5-10.1) mg/dL Magnesium (1.8-2.4) mg/dL Total Bilirubin (0.2-1.0) mg/dL AST (15-37) U/L ALT (14-59) U/L Alkaline Phosphatase (46-116) U/L Troponin I (<=0.056) ng/mL Total Protein (6.4-8.2) g/dL Albumin (3.4-5.0) g/dL Globulin Albumin/Globulin Ratio Urine Color Yellow (YELLOW) Urine Appearance Turbid H (CLEAR) Urine pH 8.5 H (5.0-8.0) Ur Specific [place] 1.020 Urine Protein 100 H (NEGATIVE) mg/dL Urine Glucose (UA) 500 H (NEGATIVE) mg/dL Urine Ketones 40 H (NEGATIVE) mg/dL Urine Occult Blood Trace-intact H (NEGATIVE) Urine Nitrite Negative (NEGATIVE) Urine Bilirubin Negative (NEGATIVE) Urine Urobilinogen 0.2 (0.2) EU/dL Ur Leukocyte Esterase Small H (NEGATIVE) U Hyaline Cast (Auto) Few Urine RBC 0-5 (NOT SEEN) /HPF Urine WBC 10-20 H (NOT SEEN) /HPF Ur Squamous Epith Cells Moderate H (NEGATIVE) /HPF Urine Bacteria Few H (NEGATIVE) /HPF Urine Mucus Few H (NEGATIVE) /LPF SARS CoV-2 RNA Rapid GEOFF Negative (NEGATIVE) 04/13/20 04/13/20 04/13/20 Range/Units 13:33 13:33 13:33 WBC (4.0-10.0) x10^3/uL RBC (4.00-5.50) x10^6/uL Hgb (12.0-16.0) g/dL Hct (33.0-47.0) % MCV (78.0-93.0) fL MCH (26.0-32.0) pg MCHC (32.0-36.0) g/dL RDW Coeff of Blanka (10.0-15.0) % Plt Count (130-400) x10^3/uL Neut % (Auto) (50.0-80.0) % Lymph % (Auto) (25.0-50.0) % Carbon % (Auto) (2.0-11.0) % Eos % (Auto) (0.0-4.0) % Baso % (Auto) (0.2-1.2) % Sodium 133 L (136-145) mmol/L Potassium 3.4 L (3.5-5.1) mmol/L Chloride 96 L (98-107) mmol/L Carbon Dioxide 22 (21-32) mmol/L Anion Gap 18.4 (10-20) mmol/L BUN 15 (7-18) mg/dL Creatinine 1.2 H (0.55-1.02) mg/dL Est Cr Clr Drug Dosing 33.95 mL/min Estimated GFR (MDRD) 43 Glucose 352 H (74-106) mg/dL Lactic Acid 4.9 H* (0.4-2.0) mmol/L Calcium 9.3 (8.5-10.1) mg/dL Corrected Calcium 9.78 (8.5-10.1) mg/dL Magnesium 1.7 L (1.8-2.4) mg/dL Total Bilirubin 0.6 (0.2-1.0) mg/dL AST 17 (15-37) U/L ALT 27 (14-59) U/L Alkaline Phosphatase 99 (46-116) U/L Troponin I < 0.017 (<=0.056) ng/mL Total Protein 7.3 (6.4-8.2) g/dL Albumin 3.4 (3.4-5.0) g/dL Globulin 3.9 Albumin/Globulin Ratio 0.87 Urine Color (YELLOW) Urine Appearance (CLEAR) Urine pH (5.0-8.0) Ur Specific [place] Urine Protein (NEGATIVE) mg/dL Urine Glucose (UA) (NEGATIVE) mg/dL Urine Ketones (NEGATIVE) mg/dL Urine Occult Blood (NEGATIVE) Urine Nitrite (NEGATIVE) Urine Bilirubin (NEGATIVE) Urine Urobilinogen (0.2) EU/dL Ur Leukocyte Esterase (NEGATIVE) U Hyaline Cast (Auto) Urine RBC (NOT SEEN) /HPF Urine WBC (NOT SEEN) /HPF Ur Squamous Epith Cells (NEGATIVE) /HPF Urine Bacteria (NEGATIVE) /HPF Urine Mucus (NEGATIVE) /LPF SARS CoV-2 RNA Rapid GEOFF (NEGATIVE) 04/13/20 Range/Units 14:48 WBC (4.0-10.0) x10^3/uL RBC (4.00-5.50) x10^6/uL Hgb (12.0-16.0) g/dL Hct (33.0-47.0) % MCV (78.0-93.0) fL MCH (26.0-32.0) pg MCHC (32.0-36.0) g/dL RDW Coeff of [place]an[place] (10.0-15.0) % Plt Count (130-400) x10^3/uL Neut % (Auto) (50.0-80.0) % Lymph % (Auto) (25.0-50.0) % Carbon % (Auto) (2.0-11.0) % Eos % (Auto) (0.0-4.0) % Baso % (Auto) (0.2-1.2) % Sodium (136-145) mmol/L Potassium (3.5-5.1) mmol/L Chloride (98-107) mmol/L Carbon Dioxide (21-32) mmol/L Anion Gap (10-20) mmol/L BUN (7-18) mg/dL Creatinine (0.55-1.02) mg/dL Est Cr Clr Drug Dosing mL/min Estimated GFR (MDRD) Glucose (74-106) mg/dL Lactic Acid (0.4-2.0) mmol/L Calcium (8.5-10.1) mg/dL Corrected Calcium (8.5-10.1) mg/dL Magnesium (1.8-2.4) mg/dL Total Bilirubin (0.2-1.0) mg/dL AST (15-37) U/L ALT (14-59) U/L Alkaline Phosphatase (46-116) U/L Troponin I (<=0.056) ng/mL Total Protein (6.4-8.2) g/dL Albumin (3.4-5.0) g/dL Globulin Albumin/Globulin Ratio Urine Color Light yellow (YELLOW) Urine Appearance Cloudy H (CLEAR) Urine pH 6.5 (5.0-8.0) Ur Specific [place] 1.010 Urine Protein Negative (NEGATIVE) mg/dL Urine Glucose (UA) 500 H (NEGATIVE) mg/dL Urine Ketones 15 H (NEGATIVE) mg/dL Urine Occult Blood Trace-intact H (NEGATIVE) Urine Nitrite Negative (NEGATIVE) Urine Bilirubin Negative (NEGATIVE) Urine Urobilinogen 0.2 (0.2) EU/dL Ur Leukocyte Esterase Trace H (NEGATIVE) U Hyaline Cast (Auto) Few Urine RBC 0-5 (NOT SEEN) /HPF Urine WBC 5-10 H (NOT SEEN) /HPF Ur Squamous Epith Cells Many H (NEGATIVE) /HPF Urine Bacteria Few H (NEGATIVE) /HPF Urine Mucus Few H (NEGATIVE) /LPF SARS CoV-2 RNA Rapid GEOFF (NEGATIVE) Meds: Medications Generic Name Dose Route Start Last Admin Trade Name Freq PRN Reason Stop Dose Admin Lactated Ringer's 1,000 mls @ 125 mls/hr 04/13/20 15:00 04/13/20 15:02 Ringers, Lactated IV 125 mls/hr ASDIRECTED MARIAH Administration Sodium Chloride 10 ml 04/13/20 13:08 Saline Flush FLUSH ASDIRECTED PRN Keep Vein Open Discontinued Medications Generic Name Dose Route Start Last Admin Trade Name Caterina PRN Reason Stop Dose Admin Al Hydroxide/Mg Hydroxide 30 ml 04/13/20 14:07 04/13/20 14:16 Gi Cocktail PO 04/13/20 14:08 30 ml ONETIME ONE Administration Ceftriaxone Sodium 2 gm 04/13/20 14:45 04/13/20 16:58 Rocephin IVPUSH 04/13/20 14:46 Not Given STAT ONE Lactated Ringer's 1,000 mls @ 999 mls/hr 04/13/20 13:24 04/13/20 13:38 Ringers, Lactated IV 04/13/20 14:24 999 mls/hr ONETIME ONE Administration Piperacillin Sod/Tazobactam 100 mls @ 200 mls/hr 04/13/20 14:51 04/13/20 15:07 Sod 3.375 gm/ Sodium Chloride IV 04/13/20 15:20 200 mls/hr STAT ONE Administration Iopamidol 100 ml 04/13/20 15:23 04/13/20 16:02 Isovue-300 (61%) IVPUSH 04/13/20 15:24 100 ml ONETIME ONE Administration Ondansetron HCl 4 mg 04/13/20 13:25 04/13/20 13:40 Zofran IV 04/13/20 13:26 4 mg ONETIME ONE Administration Pantoprazole Sodium 80 mg 04/13/20 16:16 04/13/20 16:32 Protonix Iv IVPUSH 04/13/20 16:17 80 mg ONETIME ONE Administration - Radiology Interpretation Free Text/Narrative:: Chest x-ray per radiology shows patchy airspace opacifications bilaterally most pronounced at the lung bases. Findings could suggest infectious etiology such as pneumonia. CT abdomen pelvis with contrast small amount of free air within the abdomen. Uncertain etiology however there is minimal stranding in the region of the proximal duodenum. This could suggest ulceration. Endoscopy is recommended for further evaluation. Colonic diverticulosis without evidence of acute diverticulitis. Thickening of the region of the distal rectum. This is been seen on prior imaging. No drainable fluid collection is identified. - Re-Assessments/Exams Free Text/Narrative Re-Assessment/Exam: 04/13/20 14:52 The patient was recently treated in the clinic for a UTI with CIpro and finished all of her anti-biotics. Initially LR 250ml bolus and then 125mls/hr Labs drawn. THen WBC at 9 Lactic acid 4.9 1 liter LR bolus. Blood cultures x2. Zosyn 3.375gm IVPB. CXR and CT abd pelvis ordered. GI cocktail with resolution of the chest burning pain. Troponin negative. Covid negative. Mag 1.7. K 3.4 Her first urine did have a small amount of leukocyte esterase as well as 10-20 WBCs although this is somewhat contaminated with stool and we will repeat her UA. 04/13/20 16:36 Chest x-ray questionable for bilateral base opacifications patchy could be pneumonia per radiology. CT abdomen pelvis per radiology concerning with a small amount of free air with an uncertain etiology. Questionable duodenal ulcer with some stranding in that region. The patient does feel quite a bit better after the above fluid hydration. I discussed the findings of the concern of the free air within the abdomen. She has not had any recent instrumentation or any recent procedures. She is never had endoscopy in the past. She does have a history of heartburn that she is chronically on omeprazole for. I called and spoke with Dr. Zuleta at [facility] in [place]. HPI ER Course findings and concerns were relayed to him over the phone. Questions were answered and Dr. Zuleta doesn't feel that the patient needs surgery at this time and could be medically managed here especially with the ongoing bed shortage with COVID. He will leave it up to the patient as well as the Hospitalist. I called and spoke with Dr. Kenisha Nguyen who is the patients PCP. The patient verifies that she is a code level 2 and okay with admitting here and treating medically at this time. The patient is also comfortable with this plan and her questions answered. Lactic was repeated in the ED prior to admission and Dr. Kenisha Nguyen is aware. 04/13/20 18:00 Departure - Departure Time of Disposition: 16:50 Disposition: Admitted As Inpatient 64 Clinical Impression: Intra-abdominal free air of unknown etiology, Lactic acidosis - Discharge Information Sepsis Event Note (ED) - Focused Exam Vital Signs: Vital Signs Temp Pulse Resp BP Pulse Ox 04/13/20 16:31 98.0 F 85 16 146/78 H 97 04/13/20 15:14 98.0 F 94 16 143/78 H 98 04/13/20 13:20 98.0 F 102 H 20 180/79 H 94 L - My Orders Last 24 Hours: My Active Orders 04/13/20 13:08 CULTURE URINE [RM] Stat Sodium Chloride 0.9% [Saline Flush] 10 ml FLUSH ASDIRECTED PRN Peripheral IV Insertion Adult [OM.PC] Stat 04/13/20 13:23 EKG Documentation Completion [RC] STAT 04/13/20 13:33 PROCALCITONIN [REF] Stat 04/13/20 14:45 Blood Culture x2 Reflex Set [OM.PC] Stat 04/13/20 14:51 Abdomen Pelvis w Cont [CT] Stat 04/13/20 15:00 Lactated Ringers [Ringers, Lactated] 1,000 ml IV ASDIRECTED 04/13/20 15:27 CULTURE BLOOD [BC] Stat 04/13/20 15:32 CULTURE BLOOD [BC] Stat 04/13/20 17:00 LACTIC ACID [CHEM] Timed - Assessment/Plan Last 24 Hours: My Active Orders 04/13/20 13:08 CULTURE URINE [RM] Stat Sodium Chloride 0.9% [Saline Flush] 10 ml FLUSH ASDIRECTED PRN Peripheral IV Insertion Adult [OM.PC] Stat 04/13/20 13:23 EKG Documentation Completion [RC] STAT 04/13/20 13:33 PROCALCITONIN [REF] Stat 04/13/20 14:45 Blood Culture x2 Reflex Set [OM.PC] Stat 04/13/20 14:51 Abdomen Pelvis w Cont [CT] Stat 04/13/20 15:00 Lactated Ringers [Ringers, Lactated] 1,000 ml IV ASDIRECTED 04/13/20 15:27 CULTURE BLOOD [BC] Stat 04/13/20 15:32 CULTURE BLOOD [BC] Stat 04/13/20 17:00 LACTIC ACID [CHEM] Timed
[2020-04-13] MEDS ORDERED: GI Cocktail Oral Solution 30 ML PO ONE (14:07)
[2020-04-13 14:18] LABS: ANION GAP 18.4 mmol/L (10-20)
[2020-04-13] MEDS ORDERED: cefTRIAXone 2 GM Vial IVPUSH ONE (14:45)
[2020-04-13] MEDS ORDERED: Piperacillin/Tazobactam 3.375 GM in Sodium Chloride 0.9% 100 ML IV ONE (14:51)
[2020-04-13] MEDS ORDERED: Lactated Ringers 1,000 ML IV SCH (15:00)
[2020-04-13] MEDS ORDERED: Iopamidol 612 MG/ML 100 ML Bottle IVPUSH ONE (15:23)
--- NOTE | 2020-04-13 15:45 | CR ---
[id number] RAD/RAD Chest PA or AP 1V EXAM: RAD Chest PA or AP 1V INDICATION: LACTIC ACIDOSIS. COMPARISON: None available. DISCUSSION: Mediastinal silhouette is enlarged. Patchy airspace opacifications bilaterally most pronounced at the lung bases. No pneumothorax or pleural effusion. IMPRESSION: Patchy airspace opacifications bilaterally most pronounced at the lung bases. Findings could suggest infectious etiology such as pneumonia. Carlos Voss DO 04/13/20 1544 Thank you for allowing us to participate in the care of your patient.
[2020-04-13] MEDS ORDERED: Pantoprazole 40 MG Vial IVPUSH ONE (16:16)
[2020-04-13] MEDS ORDERED: Magnesium Sulfate/Water 2 GM/50 ML BAG IV ONE (18:35)
[2020-04-13] MEDS: Pantoprazole 40 MG Vial IVPUSH SCH (18:51)
[2020-04-13] MEDS ORDERED: Ondansetron 4 MG/2 ML SDV IV PRN (18:53)
[2020-04-13] MEDS ORDERED: 50% Dextrose in Water 50 ML Syringe IV PRN (18:56)
[2020-04-13] MEDS ORDERED: Glucagon,Human Recombinant 1 MG Vial IM PRN (18:56)
[2020-04-13] MEDS ORDERED: Acetaminophen 325 MG Tab PO PRN (19:05)
[2020-04-13] MEDS ORDERED: NS + KCl 20mEq/L 1,000 ML IV SCH (19:15)
--- NOTE | 2020-04-13 20:11 | HP ---
CHIEF COMPLAINT: Abdominal pain, vomiting and diarrhea. HISTORY OF PRESENT ILLNESS: This is an 84-year-old who was feeling well up until about 2 days ago when she did not even leave her chair. She had very watery stools and was incontinent multiple times. She has not thrown up today, but did in the previous days many times. She describes pain up and through the chest, like a burning. She otherwise has not had any fever or chills. No cough. No shortness of breath, but has felt weak. She has no burning with urination or black stools, but does have a history of recurrent urinary tract infections and in fact was recently treated around 04/01 for E. coli with amoxicillin and later had to be switched to complete a course with Cipro. The patient also has uncontrolled diabetes and is on metformin. Recently switched to Janumet. She has a history of not being compliant with recommendations for diabetes, and in fact should be on insulin but refuses. Her A1c was 8.9. She also has a history of atrial fibrillation, but has refused warfarin. She lives at home with her son. She does have a pressure ulcer stage II present on admission on her sacral area. She has chronic incontinence of urine. She has some feces on her legs during the exam. She admits to me she thinks that sponge baths are probably good enough for her and has refused bathing aide assistance multiple times through [facility]. ALLERGIES: Atorvastatin and statins. MEDICATION LIST: Includes Tylenol p.r.n., aspirin 81 mg daily, glipizide 10 mg twice daily, lactobacillus, lisinopril 10 mg daily, melatonin 3 mg at bedtime, metoprolol 50 mg daily, multivitamin daily, Prilosec 20 mg every day, metformin with sitagliptin twice daily, vitamin D 1000 units daily. PAST MEDICAL HISTORY: Does include atrial fibrillation; uncontrolled type 2 diabetes; hyperlipidemia; essential hypertension; history of colon cancer, status post surgery; mixed urinary incontinence; osteoarthritis; recurrent UTIs; spinal stenosis. PAST SURGICAL HISTORY: She has had a cholecystectomy. She has had colon cancer surgery. She has had an appendectomy. SOCIAL HISTORY: She is . She lives with her son. She is a retired teacher. She is a nonsmoker. She denies any alcohol use. FAMILY HISTORY: Both parents are . Sister of pancreatic cancer. REVIEW OF SYSTEMS: CONSTITUTIONAL: She has had generalized weakness. She is not aware of any weight changes. HEENT: No sore throat. CARDIAC: No chest pain other than what is coming from her stomach. Her troponin was negative. Her heart is irregular, this is not new. RESPIRATORY: No cough. No shortness of breath. ABDOMEN: As stated in HPI. : No changes. She is chronically incontinent. Otherwise, all systems reviewed and found to be negative unless otherwise stated. PHYSICAL EXAMINATION: VITAL SIGNS: The patient has a weight of 88.2 kg, temp 97.6, pulse 84, blood pressure 160/76, respiratory rate 16, and O2 of 97% on room air. GENERAL: She is in no acute distress. HEART: Regularly irregular. LUNGS: Lung sounds are clear to auscultation bilaterally without crackles or wheezes. ABDOMEN: Positive bowel sounds. Soft, nontender, nondistended. EXTREMITIES: Warm and dry. No edema. SKIN: Does show a stage II sacral decubitus ulcer. Otherwise, she has some thickened skin under the breast, but no active yeast infection. I think she just needs to be washed up. She has some liquid dried stool area to her ankle. MENTAL STATUS: She is alert. She is orientated x3. She recognizes me. IMAGING: Patchy air space changes bilaterally, possibly pneumonia. Abdominal CT did show some free air, concern for a duodenal ulcer. LABORATORY DATA: White count normal at 9, hemoglobin 14, platelets 425. Sodium 133, potassium 3.4, chloride 96, bicarb 22, BUN 15, creatinine 1.2, glucose 352, calcium 9.3. She did have a lactic of 4.9, repeat at 4.7. Magnesium 1.7. Bilirubin, ALT, AST all normal. Albumin normal at 3.9. Troponin negative. UA; 5 to 10 wbcs, contaminated specimen. COVID test negative. ASSESSMENT AND PLAN: 1. Abdominal pain, nausea and vomiting, concern for perforated ulcer. She has known heartburn. She is not having melena. Her hemoglobin is stable. At this point, we will place her on oral Carafate and IV Protonix. We will treat her conservatively. She is actually asking to eat something and has not eaten in 2 days. The GI cocktail did seem to help her in the ER. The patient is not interested in pursuing aggressive cares like surgery in [place]. Her son was updated on this plan of care as well. 2. Recurrent urinary tract infection. She will be covered by the Zosyn which is also being used to cover any abdominal infection due to concern for the perforation. There is also questionable pneumonia. She is not having any symptoms. We will get her on incentive spirometry. She is not using any oxygen. We will follow clinically. 3. Vomiting and diarrhea. The vomiting resolved, but she has been on recent antibiotics. We will send her for C. diff testing. Given her normal white count, I am going to hold off on any treatments for empiric C. diff coverage. 4. Hypokalemia and hypomagnesemia. We will replace through her IV. I will change her fluids to normal saline with 20 of KCl. Repeat lab work tomorrow. 5. Uncontrolled diabetes. I will give her 8 units of Lantus and q.i.d. Accu- Cheks, likely be starting some meal insulin tomorrow. 6. Essential hypertension, blood pressure elevated. We will give her her Toprol dose now. She also has paroxysmal atrial fibrillation. I will monitor her with telemetry. Her rates are controlled. She refuses anticoagulation. 7. DVT prophylaxis. I will put her on Lovenox. 8. Obesity. 9. Sacral wound. We have ordered local wound cares. 10.Deconditioning. We will get PT involved. The patient is admitted for acute cares for her intraabdominal free air, abdominal pain, nausea and vomiting, and lactic acidosis. We will repeat a lactic tomorrow. This is presumably due to the metformin. I have added a CRP and a lipase level. She is a code level 3. MKA: 04/13/2020 19:20:03 MODL: 04/13/2020 20:06:41 /[id number]
[2020-04-13] MEDS: Metoprolol Succinate 50 MG Tab.ER PO SCH (20:23)
[2020-04-13] MEDS: Sucralfate 1 GM Tab PO SCH (20:26)
[2020-04-13] MEDS: Melatonin 3 MG Tab PO SCH (20:26)
[2020-04-13] MEDS: Insulin Glarg,Human.Rec.Analog 100 Unit/ML SUBCUT SCH (20:33)
[2020-04-13] MEDS: Piperacillin/Tazobactam 3.375 GM in Sodium Chloride 0.9% 100 ML IV SCH (22:33)
[2020-04-14] MEDS: Piperacillin/Tazobactam 3.375 GM in Sodium Chloride 0.9% 100 ML IV SCH ×3 (06:01→21:31)
[2020-04-14] MEDS: Sucralfate 1 GM Tab PO SCH ×3 (06:01→16:56)
[2020-04-14] MEDS: Pantoprazole 40 MG Vial IVPUSH SCH ×2 (06:01→18:44)
--- NOTE | 2020-04-14 07:54 | CT ---
[id number] CT/CT Abdomen Pelvis W IV EXAM: CT Abdomen Pelvis W IV CLINICAL DATA: ABDOMINAL PAIN, NAUSEA, VOMITING, DIARRHEA, LACTIC COMPARISON STUDY: 04/13/2019. FINDINGS: Linear atelectasis at the lung bases bilaterally. The liver, spleen, adrenal glands and kidneys are unremarkable bilaterally. Fatty atrophy of the pancreas. The gallbladder is surgically absent. There is mild thickening and inflammatory change involving the 1st portion of the duodenum. Additionally there are multiple foci of free air within the abdomen. In the absence of recent surgery/instrumentation this could be related to duodenal ulceration. Asymmetric wall thickening involving the rectum was seen on prior study. This is nonspecific. No fluid collection is identified. Diverticulosis without evidence of acute diverticulitis. Postsurgical changes of the right colon. No lymphadenopathy, or free fluid. Scattered changes of spondylosis the spine. No fracture or osseous lesion. IMPRESSION: 1. Small amount of free air within the abdomen. This is of uncertain etiology however there is minimal stranding in the region of the proximal duodenum. This could suggest ulceration. Endoscopy is recommended for further evaluation. 2. Colonic diverticulosis without evidence of acute diverticulitis. 3. Thickening of the region of the distal rectum. This is been seen on prior imaging. No drainable fluid collection is identified. Findings discussed with ordering provider at time of dictation. Carlos Voss DO 04/14/20 0753 Thank you for allowing us to participate in the care of your patient.
[2020-04-14 07:57] LABS: ANION GAP 11.7 mmol/L (10-20)
[2020-04-14] MEDS ORDERED: Metoprolol Succinate 50 MG Tab.ER PO SCH (08:00)
[2020-04-14] MEDS: Metoprolol Succinate 50 MG Tab.ER PO SCH (08:23)
[2020-04-14] MEDS: Enoxaparin 40 MG/0.4 ML Syringe SUBCUT SCH (08:23)
[2020-04-14] MEDS: Cholecalciferol (Vitamin D3) 25 MCG Tab PO SCH (08:23)
[2020-04-14] MEDS: Lisinopril 10 MG Tab PO SCH (08:23)
[2020-04-14] MEDS: Insulin Glarg,Human.Rec.Analog 100 Unit/ML SUBCUT SCH (08:24)
[2020-04-14] MEDS ORDERED: Diatrizoate Meglumine/Diatrizoate Sodium 37% 30 ML Bottle ONE (10:30)
--- NOTE | 2020-04-14 17:14 | CR ---
[id number] RAD/RAD Esophagram wo Air Exam: RAD Esophagram wo Air Clinical Data: POSSIBLE ESOPHAGEAL TEAR COMPARISON: CORRELATION IS MADE WITH YESTERDAY'S CAT SCAN FINDINGS: The exam was performed by a certified technologist in the patient's hometown Water-soluble contrast was used Attention is directed to image 1 series 1 On this image there is question of extravasation of water-soluble contrast to the right of midline Further studies suggested IMPRESSION: LIMITED EXAM QUESTION OF LEAK AT GE JUNCTION SURGICAL CONSULTATION SUGGESTED Ricardo Sampson MD 04/14/20 [id number] Thank you for allowing us to participate in the care of your patient.
[2020-04-14] MEDS ORDERED: Morphine 2 MG/ML SYRINGE IVPUSH PRN (17:22)
--- NOTE | 2020-04-14 18:35 | PN ---
Progress Note for JUDAH WRIGHT Date: 04/14/2020 Room #: VM.201 SUBJECTIVE: This is hospital day #2 on an 84-year-old admitted with abdominal pain, nausea, vomiting, diarrhea, and free air on her abdominal CT. This morning, her only concern is pain through her esophagus area. There is concern for reflux. She has been getting IV Protonix. She has been getting Carafate. She had not eaten anything for a couple of days, but asked for and tolerated broth last night. The patient is not short of breath. She is not requiring oxygen. She has not had any fever. She has had 2 bowel movements since admission mixed with urine. Therefore, no C. diff test has been sent. OBJECTIVE: Vital Signs: Her temperature is 97.6, pulse 72, blood pressure 146/77, respiratory rate 16, and O2 of 95% on room air. General: She is in no acute distress. Heart: Regular rate and rhythm. Lungs: Lung sounds are decreased in the bases with mild crackles. Abdomen: Positive bowel sounds. Soft, nondistended, nontender. Extremities: Warm and dry. No edema. Mental Status: She is alert. She is orientated x3. LABORATORY DATA: Her lab work does show her to have a white count of 5.3, hemoglobin down to 11.4, platelets are 342. Sodium 136, potassium 3.7, chloride 103, bicarb 25, BUN 11, creatinine 1.1, glucose 183, calcium 8.6, CK 33. Troponin negative. CRP is 1. Lipase 336. I had thought I did a lactic, it was 4.7 yesterday, however, I did not, although clinically, the patient is improving. She had been on metformin. I expect her lactic to improve tomorrow. Esophagram was performed today which did show concern for leak at her GE junction. She had water-soluble contrast. The patient was given the options after I discussed with Surgery to do no eating and TPN for a week and repeat the imaging, go home on hospice or consider going to [place] for further care and observation. The patient elects that she wants to go home, but is agreeable to stay here for the next day or 2 to medically optimize her. We will continue her diet with broth per her wishes. ASSESSMENT: 1. Possible esophageal tear from recent episodes of vomiting. Clinically, the patient does not appear overly sick or septic. We will allow her to eat broth per her wishes. No further CT imaging is planned at this point. We will cover her with the IV Zosyn as she had infiltrates on her x-ray. This will also cover her urinary tract infection. 2. Diarrhea. Clostridium difficile test is pending. Diarrhea seems to have slowed down. 3. Recurrent urinary tract infection. 4. Hypokalemia and hypomagnesemia replaced. 5. Uncontrolled diabetes. Blood sugars improved on Lantus 8 units daily. She will not be able to take metformin any longer. 6. Essential hypertension. Blood pressure is mildly elevated. We will continue her home medications. 7. Paroxysmal atrial fibrillation. She appears to be back in sinus, was in atrial fibrillation last evening. 8. Deep venous thrombosis prophylaxis. Lovenox. 9. Sacral wound, stage II, present on admission. We will continue local wound cares. 10.Obesity. 11.Deconditioning. She will be seen by PT. PLAN: At this point, as discussed with the patient and also her daughter, Rayne, I will update her son tomorrow is that the patient does want to stay local. She wants to go home as soon as possible. She wants to eat broth and not be kept n.p.o. or put on TPN. She will work with therapies to ensure she is strong enough to go home. We will continue to work on her diabetes control. Ideally, she would go home on 1 shot a day of insulin. She has been significantly resistant to this in the past. We will keep antibiotics IV just because of her concern for GI pathology and absorption and limiting solid foods that she takes in. Code level 3, but also for palliative care is due to patient's wishes for not to pursue aggressive measures. MKA: 04/14/2020 17:41:37 MODL: 04/14/2020 18:26:14 /[id number]
[2020-04-14] MEDS: Metoclopramide 10 MG/2 ML SDV IVPUSH SCH ×2 (18:43→21:07)
[2020-04-14] MEDS: Melatonin 3 MG Tab PO SCH (21:30)
[2020-04-15] MEDS: Pantoprazole 40 MG Vial IVPUSH SCH ×2 (06:22→18:22)
[2020-04-15] MEDS: Sucralfate 1 GM Tab PO SCH (06:22)
[2020-04-15] MEDS: Piperacillin/Tazobactam 3.375 GM in Sodium Chloride 0.9% 100 ML IV SCH ×3 (06:30→22:08)
[2020-04-15 07:14] LABS: ANION GAP 10.4 mmol/L (10-20)
[2020-04-15] MEDS ORDERED: Potassium Chloride Riders 20 MEQ in Premix Bag 1 BAG IV ONE (08:18)
[2020-04-15] MEDS: Insulin Glarg,Human.Rec.Analog 100 Unit/ML SUBCUT SCH (08:58)
[2020-04-15] MEDS: Metoclopramide 10 MG/2 ML SDV IVPUSH SCH ×3 (08:59→19:42)
[2020-04-15] MEDS: Lisinopril 10 MG Tab PO SCH (09:04)
[2020-04-15] MEDS: Metoprolol Succinate 50 MG Tab.ER PO SCH (09:04)
[2020-04-15] MEDS: Enoxaparin 40 MG/0.4 ML Syringe SUBCUT SCH (09:04)
--- NOTE | 2020-04-15 12:09 | CT ---
[id number] CT/CT Chest WO IV Exam: CT Chest WO IV Clinical Data: PNEUMONIA COMPARISON: CORRELATION IS MADE WITH THE CHEST RADIOGRAPH OF APRIL 13, 2020 FINDINGS: Small infiltrates are seen at both lung bases. There are no pleural effusions There is no pulmonary parenchymal nodule or mass There is no mediastinal mass or adenopathy There are atheromatous changes IMPRESSION: MILD BIBASILAR INFILTRATES Ricardo Sampson MD 04/15/20 [id number] Thank you for allowing us to participate in the care of your patient.
[2020-04-15] MEDS: Melatonin 3 MG Tab PO SCH (19:42)
[2020-04-15] MEDS: Sodium Chloride 0.9% 10 ML Syringe FLUSH PRN (19:46)
[2020-04-15] MEDS: Cholecalciferol (Vitamin D3) 25 MCG Tab PO SCH (21:59)
[2020-04-16] MEDS: Sodium Chloride 0.9% 10 ML Syringe FLUSH PRN (05:52)
[2020-04-16] MEDS: Pantoprazole 40 MG Vial IVPUSH SCH (05:52)
[2020-04-16] MEDS: Piperacillin/Tazobactam 3.375 GM in Sodium Chloride 0.9% 100 ML IV SCH (05:55)
[2020-04-16 07:02] LABS: ANION GAP 12.4 mmol/L (10-20)
[2020-04-16] MEDS: Enoxaparin 40 MG/0.4 ML Syringe SUBCUT SCH (07:45)
[2020-04-16] MEDS: Lisinopril 10 MG Tab PO SCH (07:46)
[2020-04-16] MEDS: Metoprolol Succinate 50 MG Tab.ER PO SCH (07:46)
[2020-04-16] MEDS: Insulin Glarg,Human.Rec.Analog 100 Unit/ML SUBCUT SCH (07:48)
[2020-04-16] MEDS: Metoclopramide 10 MG/2 ML SDV IVPUSH SCH ×2 (07:52→11:46)
--- NOTE | 2020-04-16 10:00 | PN ---
Progress Note for JUDAH WRIGHT Date: 04/15/2020 Room #: VM.201 SUBJECTIVE: This is hospital day #3 on an 84-year-old admitted with nausea, vomiting, diarrhea, and concern for an esophageal tear. C. diff testing was negative. She has not had any worsening diarrhea or incontinence. She continues to have burning pain in her chest and back pain. She has been coughing up some phlegm. She otherwise has not vomited. She is tolerating a liquid diet and broth and she really would like more to eat. Otherwise, she has been afebrile. She is not short of breath. OBJECTIVE: Vital Signs: Her temperature is 97.6, pulse 65, blood pressure 138/60, respiratory rate 18, and O2 of 95% on room air. General: She is in no acute distress. Heart: Irregular rate and rhythm. S1, S2 without murmur. Lungs: Lung sounds are clear to auscultation on the R lung with crackles in the left base Abdomen: Positive bowel sounds. It is soft. It is nontender. Extremities: Warm and dry. There is no edema. Mental Status: She is alert. She is orientated x3. LABORATORY DATA: Her lab work today did show her white count normal at 5, hemoglobin 11.2 which is stable, platelets 350. Lactic normal. Sodium 139, potassium 3.4, chloride 107, bicarb 25, BUN 6, creatinine 1, glucose 177, calcium 8.8. Blood cultures negative. ASSESSMENT: 1. Abdominal pain, nausea, vomiting, and possible esophageal tear. Given concern for coughing and back pain, we will get a CT to evaluate for any pneumonia. We will hold off on any contrast. The patient understands that this is a significant injury, but her surgery would be quite extensive. She should be n.p.o., but she prefers to eat. Therefore, we will allow her to eat under palliative cares. She did work with Therapies, they felt she could spend some time on swing bed. However, she is really hopeful to go home tomorrow. I did recommend she stay at least 1 more night to receive more IV Zosyn and potassium replacement. 2. Diarrhea. This seems to have been improving. Clostridium difficile is negative. 3. Recurrent urinary tract infection. It should be more than covered by Zosyn. 4. Possible pneumonia. She is on the Zosyn. 5. Hypokalemia and hypomagnesemia, being replaced. The potassium through the IV due to limited oral intake. 6. Uncontrolled diabetes. Blood sugars under significantly improved control on the Lantus 8 units daily. 7. Essential hypertension. Continue home medications. 8. Paroxysmal atrial fibrillation. She is back in sinus. We will discontinue telemetry. 9. Deep venous thrombosis prophylaxis. She is on Lovenox. 10.Sacral wound stage II, present on admission. Continue local wound cares. 11.Obesity. 12.Deconditioning. PLAN: The patient will continue acute cares. I have her on some IV Protonix to avoid any further vomiting. We will replace her potassium IV. I will also keep her on IV Zosyn. We will continue q.i.d. Accu-Cheks. We will follow the results of the CT, and if things look okay, I did okay her to go up to a soft diet per her request. I will try to update her son today. HILDA: 04/15/2020 14:41:07 MODL: 04/15/2020 14:54:59 /[id number] [place]
[2020-04-16] MEDS ORDERED: 50% Dextrose in Water 50 ML Syringe IV PRN (12:14)
[2020-04-16] MEDS ORDERED: Glucagon,Human Recombinant 1 MG Vial IM PRN (12:14)
[2020-04-16] MEDS ORDERED: Metoclopramide 5 MG Tab PO SCH (12:15)
[2020-04-16] MEDS ORDERED: Insulin Glarg,Human.Rec.Analog 100 Unit/ML SUBCUT ONE (13:00)
[2020-04-16] MEDS ORDERED: Potassium Chloride 10% 20 MEQ/15 ML Soln 15 ML UD Cup PO ONE (13:17)
--- NOTE | 2020-04-17 02:26 | DISCH ---
PRIMARY DISCHARGE DIAGNOSES: 1. Abdominal pain, nausea, vomiting, diarrhea with concern for esophageal tear at the gastroesophageal junction, free air on the CT. The patient declined medical interventions. 2. Diarrhea, improved. She was negative for Clostridium difficile. 3. Recurrent urinary tract infection, treated with IV antibiotics. Overall, her urine had improved since she was on Cipro on the 12th for 3 days. 4. Pneumonia, likely an aspiration due to her vomiting, infiltrates on CT. 5. Hypokalemia and hypomagnesemia, replaced. 6. Uncontrolled diabetes with lactic acidosis, on metformin. Therefore, metformin and Januvia combination stopped, and the patient will be going home on insulin 10 units daily. 7. Essential hypertension. 8. Paroxysmal atrial fibrillation. She actually returned to sinus during her stay. She refuses Coumadin or anticoagulation. 9. Sacral wound stage II pressor ulcer present on admission. Wound cares are ongoing, and no sign of infection. 10.Obesity. 11.Deconditioning. 12.Deep venous thrombosis prophylaxis, she was on Lovenox. REASON FOR ADMISSION: On the date of admission, this 84-year-old presented to the ER with nausea, vomiting, and diarrhea for 2 days' time. She had not gotten out of her chair or really eaten much. She was quite weak. She was given IV fluids, and overall she had improved. She was seen by Physical Therapy who recommended a swing bed stay for several more days. However, the patient was not interested. She was initially kept n.p.o. and had chest CT ordered. However, Radiology felt that if we were concerned about a perforation, we should do the esophagogram, which indeed did show some concern for leakage at the GE junction; however, the patient was not interested in going n.p.o. for a week on TPN. She was not interested in transfer to [place] for further management. The surgeon was called, and they also were not very keen on pursuing a surgery in this 84-year-old female with uncontrolled diabetes. Therefore, decision was made based on the patient's overall presentation and improvement since admission to allow her to eat a clear liquid diet, which she did tolerate it. Her white count was always normal. Her lactic which was up to 4.9, did also normalize. Her hemoglobin did drop from 14 to 11 range, but remained stable, some of this could be due to hemodilution. Her renal function had remained normal, and overall, the patient was doing well. She was incontinent of urine, but this was not new. She was treated with IV Zosyn for her pneumonia and will be discharged home on Augmentin. She was upgraded to a soft diet yesterday afternoon and is hopeful to go home today. The patient's blood sugar was 352 on admission, but after instituting insulin, they were all much improved, usually 180s; it was 145 one evening, this was likely when she was n.p.o. OBJECTIVE: Vital Signs: On discharge, her temperature 98.3, pulse 81, blood pressure 138/50, respiratory rate 18, and O2 of 95% on room air. General: She is in no acute distress. Heart: Regular rate and rhythm. S1 and S2, without murmur. Lungs: Lung sounds are very clear to auscultation bilaterally without crackles or wheezes. Abdomen: Has positive bowel sounds. It is soft, nondistended, nontender. Extremities: Warm and dry. No edema. Mental Status: Alert and orientated x3. Back: Her back is soft. No tenderness on the spine. She does complain of some back pain initially, and it has improved. She feels like it is pleurisy, she says, across her whole back. DISCHARGING LABORATORY: Includes the normal white count 4.3, hemoglobin 11.5, platelets 352. Sodium 138, potassium 3.4, chloride 104, bicarb 25, BUN 5, creatinine 1, glucose 176, magnesium 1.8. Blood cultures were negative. DISCHARGE PLANS AND INSTRUCTIONS: The patient will follow up with Dr. Nguyen in the clinic on the at 2:30. No lab work due, but we will do it in May. She plans to eat a soft mashed banana each day. She did decline home health. She has declined on several episodes in the past. Therefore, I did not pursue it. I did also talk to her daughter on discharge but had not been able to reach her son. He was coming up, he will get teaching on the insulin pen, and he was agreeable to give her the shot in the past. If she has any severe chest or back pain or abdominal pain, she will return, but knows that likely she would just be kept more comfortable, and she would not want an aggressive surgery. I had also given her IV Reglan to prevent any vomiting. I will send her home on Reglan 5 mg 3 times a day until she can see me. We increased her Prilosec to 20 mg twice daily. She will be on Augmentin for another 3 days. She will take a probiotic pill and/or eat yoghurt because she does do both for at least 2 weeks to prevent diarrhea. She will continue on her soft diet until she returns to see me. She will be on Lantus 10 units daily and stop her Janumet. She will continue glipizide. If she does have a glucose meter that she can use, I did state she could use it once daily and bring readings to the appointment. She will also use a padded Optifoam-type dressing to her bottom and avoid sitting for prolonged periods of time to allow the area to heal. Greater than 30 minutes spent on this discharge. MKA: 04/16/2020 22:16:34 MODL: 04/17/2020 02:13:51 /[id number]
== END 2020-04-16 15:00 | disposition home or self-care (01) | DRG 368 ==
LOC: VM.ED 13:04 → VM.MS 17:09 → UNDODISIN 04-16 15:00
PROVIDERS: ADMIT Internal Medicine; ATTEND Internal Medicine
DX: K22.3 Perforation of esophagus (principal); J69.0 Pneumonitis due to inhalation of food and vomit; N39.0 Urinary tract infection, site not specified; R14.0 Abdominal distension (gaseous); E87.2 Acidosis; R19.7 Diarrhea, unspecified; E87.6 Hypokalemia; E83.42 Hypomagnesemia; E11.42 Type 2 diabetes mellitus with diabetic polyneuropathy; I48.0 Paroxysmal atrial fibrillation; L89.152 Pressure ulcer of sacral region, stage 2; E66.9 Obesity, unspecified; H91.90 Unspecified hearing loss, unspecified ear; E78.5 Hyperlipidemia, unspecified; H54.7 Unspecified visual loss; E78.00 Pure hypercholesterolemia, unspecified; I10 Essential (primary) hypertension; N39.46 Mixed incontinence; M19.90 Unspecified osteoarthritis, unspecified site; F41.9 Anxiety disorder, unspecified; E11.9 Type 2 diabetes mellitus without complications; Z85.038 Personal history of other malignant neoplasm of large intestine; Z68.29 Body mass index [BMI] 29.0-29.9, adult; Z90.49 Acquired absence of other specified parts of digestive tract; Z88.8 Allergy status to other drugs, medicaments and biological substances; Z79.84 Long term (current) use of oral hypoglycemic drugs; Z79.82 Long term (current) use of aspirin; Z79.899 Other long term (current) drug therapy; Z20.828 Contact with and (suspected) exposure to other viral communicable diseases
CPT/HCPCS: 36415; 71045; 74177; 80053; 81001 ×2; 83605 ×2; 83735; 84145; 84484; 85025; 87040 ×2; 87086; 93005; 93010; 96365; 96366; 96375; 99284; 99285; A9270; C9113; J2405; J2543; J7050; J7120 ×2; Q9967; U0002; 71250; 74220; 80048; 82550; 82962; 83690; 86140; 87493; 97161-GP; 97165-GO; J1650; J1815-GY; J2765; J3475; J3480; Q9963

== ENCOUNTER 2020-05-31 05:10 | Emergency (ER) | payer MEDICARE, OTHER ==
--- NOTE | 2020-05-31 08:22 | CR ---
[id number] RAD/RAD Pelvis 1V W 2V Left Hip Exam: RAD Pelvis 1V W 2V Left Hip Indication:FELLYESTERDAY, LT HIP/PELVIC PAIN Comparison: No prior imaging for comparison. Discussion/Impression: No evidence of a fracture. No dislocation. Femoroacetabular osteoarthritis with joint space narrowing. Enthesopathy at the greater trochanter. Whole pelvis view demonstrates right femoroacetabular osteoarthritis, bilateral sacroiliac osteoarthritis, and spondylosis of lower lumbar spine. Tk Tarango MD 05/31/20 [id number] Thank you for allowing us to participate in the care of your patient.
--- NOTE | 2020-05-31 16:40 | EDM.PDOC ---
ED HPI GENERAL MEDICAL PROBLEM - General Chief Complaint: General Stated Complaint: Fall, tailbone pain, vomiting Time Seen by Provider: 05/31/20 05:20 Source of Information: Reports: Patient History Limitations: Reports: No Limitations - History of Present Illness INITIAL COMMENTS - FREE TEXT/NARRATIVE: Pt. presents to ER with complaints of tailbone/L hip pain since falling in her residence yesterday afternoon. She denies striking her head, and states that she fell backward directly onto her backside. Denies any neck or back pain. No numbness/tingling in extremities. She is able to bear weight and ambulate with a cane. She has a walker but does not like to use it. Pt. states that she has been experiencing some vomiting. Last episode of vomiting was yesterday at noon. This has been an ongoing problem for her, and is on antiemetics for chronic vomiting. Denies any diarrhea. No fever or chills. No current nausea/vomiting. Denies any abdominal pain. Onset: Today Tailbone Pain Score (Numeric/FACES): 5 - Related Data Allergies Allergy/AdvReac Type Severity Reaction Status Date / Time atorvastatin [From Lipitor] Allergy Unknown Other Verified 05/31/20 05:40 Home Meds: Home Meds Lisinopril 10 mg PO DAILY 03/03/15 [History] Metoprolol Succinate [Toprol XL] 50 mg PO DAILY 03/03/15 [History] Acetaminophen [Tylenol] 650 mg PO Q4H PRN 04/19/19 [History] Melatonin 3 mg PO BEDTIME PRN 04/19/19 [History] L. Acidophilus/L.bulgaricus [Lactobacillus Tablet] 1 tab PO BIDAC 04/14/20 [History] glipiZIDE [Glucotrol] 10 mg PO BID@0700,1700 04/14/20 [History] Amoxicillin/Clavulanate K [Augmentin 875-125 MG] 1 tab PO BID #7 tablet 04/16/20 [Rx] Insulin Glarg,Human.Rec.Analog [Lantus] 10 unit SUBCUT DAILY ml 04/16/20 [Rx] Metoclopramide [Reglan] 5 mg PO TIDAC tablet 04/16/20 [Rx] Metoclopramide [Reglan] 5 mg PO TIDAC #90 tab 04/16/20 [Rx] Omeprazole 20 mg PO BID #0 04/16/20 [Rx] Past Medical History HEENT History: Reports: Other (See Below) Other HEENT History: hearing loss, wears glasses Cardiovascular History: Reports: High Cholesterol, Hypertension Other Gastrointestinal History: malignant neoplasm of colon, Genitourinary History: Reports: Other (See Below) Other Genitourinary History: mixed incontinence urge and stress. ecoli UTI Musculoskeletal History: Reports: Osteoarthritis, Other (See Below) Other Musculoskeletal History: trochanteric bursitis Psychiatric History: Reports: Anxiety Endocrine/Metabolic History: Reports: Diabetes, Type II Oncologic (Cancer) History: Reports: Colon - Infectious Disease History Infectious Disease History: Reports: Chicken Pox, Meningitis, Mumps, Rubella - Past Surgical History GI Surgical History: Reports: Appendectomy, Cholecystectomy, Colon, Colonoscopy Other GI Surgeries/Procedures: colon resection 1999, Social & Family History - Family History Family Medical History: No Pertinent Family History - Tobacco Use Tobacco Use Status *Q: Unknown Ever Used Tobacco - Caffeine Use Caffeine Use: Reports: Coffee, Tea ED ROS GENERAL - Review of Systems Review Of Systems: See Below Constitutional: Reports: No Symptoms HEENT: Reports: No Symptoms Respiratory: Reports: No Symptoms Cardiovascular: Reports: No Symptoms Endocrine: Reports: No Symptoms GI/Abdominal: Reports: No Symptoms : Reports: No Symptoms Musculoskeletal: Reports: Other (L hip/tailbone pain) Skin: Reports: No Symptoms Neurological: Reports: No Symptoms ED EXAM, GENERAL - Physical Exam Exam: See Below Exam Limited By: No Limitations General Appearance: Alert, WD/WN, No Apparent Distress Head: Atraumatic, Normocephalic Neck: Normal Inspection, Supple, Non-Tender, Full Range of Motion Respiratory/Chest: No Respiratory Distress, Lungs Clear, Normal Breath Sounds, No Accessory Muscle Use, Chest Non-Tender Cardiovascular: Normal Peripheral Pulses, Regular Rate, Rhythm, No Edema, No Gallop, No JVD, No Murmur, No Rub Back Exam: Normal Inspection, Full Range of Motion Extremities: Normal Inspection, Normal Range of Motion, No Pedal Edema, Normal Capillary Refill, Other (Pain with flexion of L hip, and on palpation of lower lumbar area/coccyx. No obvious deformity noted. No crepitus. CMS intact.) Course - Vital Signs Last Recorded V/S: Last Vital Signs Temp 36.6 C 05/31/20 05:10 Pulse 90 05/31/20 05:10 Resp 16 05/31/20 05:10 BP 172/84 H 05/31/20 05:10 Pulse Ox 94 L 05/31/20 05:10 Departure - Departure Time of Disposition: 16:46 Disposition: Home, Self-Care 01 Clinical Impression: Coccyx contusion, Contusion, hip - Discharge Information Instructions: Tailbone Injury, [id number] Referrals: Josefa Nguyen, DO [Primary Care Provider] - Forms: ED Department Discharge Additional Instructions: No fracture was identified on x-ray. Tylenol as needed for discomfort. You can also use either ice or heat to help with discomfort. Recheck in clinic in 7-10 days if still having discomfort. Sepsis Event Note (ED) - Evaluation Sepsis Screening Result: No Definite Risk - Focused Exam Vital Signs: Vital Signs Temp Pulse Resp BP Pulse Ox 05/31/20 05:10 36.6 C 90 16 172/84 H 94 L - Problem List Review Problem List Initiated/Reviewed/Updated: Yes - Assessment/Plan Plan: No fracture was identified on x-ray. Tylenol as needed for discomfort. You can also use either ice or heat to help with discomfort. Recheck in clinic in 7-10 days if still having discomfort.
== END 2020-05-31 07:12 | disposition home or self-care (01) ==
LOC: VM.ED 05:10
DX: S30.0XXA Contusion of lower back and pelvis, initial encounter (principal); S70.02XA Contusion of left hip, initial encounter; I10 Essential (primary) hypertension; E11.9 Type 2 diabetes mellitus without complications; Z79.4 Long term (current) use of insulin; Z88.8 Allergy status to other drugs, medicaments and biological substances; Z79.899 Other long term (current) drug therapy
CPT/HCPCS: 99283; 99283-25

== ENCOUNTER 2020-06-01 18:30 | Inpatient (IN) | payer MEDICARE, OTHER ==
--- NOTE | 2020-06-01 18:57 | EDM.PDOC ---
<Justin Coffman W - Last Filed: 06/01/20 19:19> ED HPI GENERAL MEDICAL PROBLEM - General Chief Complaint: Abdominal Pain Time Seen by Provider: 06/01/20 18:35 Source of Information: Reports: Patient, Family History Limitations: Reports: No Limitations - History of Present Illness INITIAL COMMENTS - FREE TEXT/NARRATIVE: Pt. presents to ER with complaints of nausea, vomiting, and diarrhea. Pt. was seen in ER on the evening 05/30 following a fall and complaints of tailbone pain. Pt. admitted at that time that she started vomiting on but at the time of ER visit was not having any nausea/vomiting or diarrhea. She lives with her son, Sindhu, who states that the symptoms got much worse yesterday. Son states that she is able to hold down some fluids. She denies any chest pain or shortness of breath. Pt. complains of diffuse abdominal cramping, no focal tenderness. Denies any blood stools. Abdominal Pain Score (Numeric/FACES): 8 - Related Data Allergies Allergy/AdvReac Type Severity Reaction Status Date / Time atorvastatin [From Lipitor] Allergy Unknown Other Verified 06/01/20 18:48 Home Meds: Home Meds Lisinopril 10 mg PO DAILY 03/03/15 [History] Metoprolol Succinate [Toprol XL] 50 mg PO DAILY 03/03/15 [History] Acetaminophen [Tylenol] 650 mg PO Q4H PRN 04/19/19 [History] Melatonin 3 mg PO BEDTIME PRN 04/19/19 [History] L. Acidophilus/L.bulgaricus [Lactobacillus Tablet] 1 tab PO BIDAC 04/14/20 [History] glipiZIDE [Glucotrol] 10 mg PO BID@0700,1700 04/14/20 [History] Insulin Glarg,Human.Rec.Analog [Lantus] 15 unit SUBCUT DAILY 06/01/20 [History] Metoclopramide [Reglan] 5 mg PO DAILY PRN 06/01/20 [History] Omeprazole 20 mg PO DAILY 06/01/20 [History] Past Medical History HEENT History: Reports: Other (See Below) Other HEENT History: hearing loss, wears glasses Cardiovascular History: Reports: High Cholesterol, Hypertension Other Gastrointestinal History: malignant neoplasm of colon, Genitourinary History: Reports: Other (See Below) Other Genitourinary History: mixed incontinence urge and stress. ecoli UTI Musculoskeletal History: Reports: Osteoarthritis, Other (See Below) Other Musculoskeletal History: trochanteric bursitis Psychiatric History: Reports: Anxiety Endocrine/Metabolic History: Reports: Diabetes, Type II Oncologic (Cancer) History: Reports: Colon - Infectious Disease History Infectious Disease History: Reports: Chicken Pox, Meningitis, Mumps, Rubella - Past Surgical History GI Surgical History: Reports: Appendectomy, Cholecystectomy, Colon, Colonoscopy Other GI Surgeries/Procedures: colon resection 1999, Social & Family History - Family History Family Medical History: No Pertinent Family History - Caffeine Use Caffeine Use: Reports: Coffee, Tea ED ROS GENERAL - Review of Systems Review Of Systems: See Below Constitutional: Reports: Weakness, Fatigue. Denies: Fever, Chills, Diaphoresis HEENT: Reports: No Symptoms Respiratory: Reports: No Symptoms Cardiovascular: Reports: No Symptoms Endocrine: Reports: No Symptoms GI/Abdominal: Reports: Diarrhea, Nausea, Vomiting, Other (diffuse cramping) : Reports: No Symptoms Musculoskeletal: Reports: No Symptoms Skin: Reports: No Symptoms Neurological: Reports: No Symptoms Psychiatric: Reports: No Symptoms Hematologic/Lymphatic: Reports: No Symptoms Immunologic: Reports: No Symptoms ED EXAM, GENERAL - Physical Exam Exam: See Below Exam Limited By: Other General Appearance: Other (More confused today. She is quite dirty/unkempt.) Head: Atraumatic, Normocephalic Respiratory/Chest: No Respiratory Distress, Lungs Clear, Normal Breath Sounds, No Accessory Muscle Use, Chest Non-Tender Cardiovascular: No Edema, No JVD, Irregularly Irregular Peripheral Pulses: 4+: Radial (L) GI/Abdominal: Soft, Non-Tender, No Organomegaly, No Distention, No Mass (Female) Exam: Deferred Rectal (Female) Exam: Deferred Back Exam: Normal Inspection, Full Range of Motion Extremities: Normal Inspection, Normal Range of Motion, Non-Tender, No Pedal Edema, Other (Some continued discomfort on movement of the L hip. No fracture was noted on x-ray on 05/30/2020.) Neurological: Alert, Oriented, CN II-XII Intact, Normal Reflexes, No Motor/Sensory Deficits Skin Exam: Warm, Dry, Pallor Departure - Departure Disposition: DC/Tfer W/I Hosp To Swing 61 Clinical Impression: Recurrent UTI, Lactic acid increased, Elevated lipase, Advanced age, Electrolyte imbalance - Discharge Information Sepsis Event Note (ED) - Evaluation Sepsis Screening Result: No Definite Risk <Purvi Kinsey - Last Filed: 06/01/20 21:11> ED HPI GENERAL MEDICAL PROBLEM - History of Present Illness INITIAL COMMENTS - FREE TEXT/NARRATIVE: Patient's son reports that she has been falling more often at home over the last year. The family had inquired about [facility] care in June and then when the COVID pandemic started, they were reluctant to let he go into a correction care facility. The patient's son is aware that she is needing more care than he can give her. She does take all of her own meds and she checks in with her, but he is sure she is not taking them all as prescribed. Course - Vital Signs Text/Narrative:: Patient initially seen by Justin Coffman PA-C and labs and imaging ordered. 1914 Purvi Kinsey LEGAL INSTRUCTOR-CNM,MANAGER OF SOFTWARE assumed care of patient. Labs pending. 1999 CMP: Ie=479, Potassium=3.0, BUN=29, Auto Phone Installer=1.7, Iobqcjf=389; Lhjupe=647. Lactic Acid=7.0; UA Leuk es=small, WBC=10-20, Avgijqk=980, Pkmlhnb=743, Blood=small, Bacteria=small; COVID neg. 2009 Additional labs ordered, including Salicylates, Venous PH, and CXR ordered due to elevated lactic acid. Ceftriaxone 1gm IVPB and a IV NS started. 2024 Discussed findings with patient and her son. Both agree to admission. Will admit to Observation tonight and then have Dr Josefa Nguyen see her tomorrow AM. Will plan to repeat Lactic Acid in 4 hours and continue IV fluids. Glucose is elevated and this could be related to the UTI or noncompliance to DM meds/insulin-whatever the case will monitor glucose and add in sliding scale insulin during admission. Sodium and potassium will need repletion during hospi talization. Last Recorded V/S: Last Vital Signs Temp 37.1 C 06/01/20 20:47 Pulse 94 06/01/20 20:47 Resp 18 06/01/20 20:47 BP 140/62 06/01/20 20:47 Pulse Ox 95 06/01/20 20:47 - Orders/Labs/Meds Orders: Active Orders 24 hr Category Date Time Status Chest 1V Frontal [CR] Stat Exams 06/01/20 20:10 Taken CULTURE BLOOD [BC] Stat Lab 06/01/20 19:19 Received CULTURE BLOOD [BC] Stat Lab 06/01/20 19:20 Received CULTURE URINE [RM] Stat Lab 06/01/20 19:16 Received SALICYLATE [REF] Stat Lab 06/01/20 20:14 Received Sodium Chloride 0.9% [Normal Saline] 1,000 ml Med 06/01/20 20:16 Active IV ONETIME Sodium Chloride 0.9% [Saline Flush] Med 06/01/20 18:49 Active 10 ml FLUSH ASDIRECTED PRN Blood Culture x2 Reflex Set [OM.PC] Stat Oth 06/01/20 18:50 Ordered Peripheral IV Insertion Adult [OM.PC] Routine Oth 06/01/20 18:50 Ordered Medication Orders Sodium Chloride (Normal Saline) 1,000 mls @ 500 mls/hr IV ONETIME ONE Stop: 06/01/20 22:15 Last Admin: 06/01/20 20:10 Dose: 500 mls/hr Documented by: ALEXIS Potassium Chloride 20 meq/ (Premix) 50 mls @ 50 mls/hr IV Q2H MARIAH Stop: 06/02/20 02:14 Sodium Chloride (Normal Saline) 1,000 mls @ 100 mls/hr IV ASDIRECTED MARIAH Sodium Chloride (Saline Flush) 10 ml FLUSH ASDIRECTED PRN PRN Reason: Keep Vein Open Labs: Laboratory Tests 06/01/20 06/01/20 06/01/20 Range/Units 18:53 19:16 19:19 WBC (4.0-10.0) x10^3/uL RBC (4.00-5.50) x10^6/uL Hgb (12.0-16.0) g/dL Hct (33.0-47.0) % MCV (78.0-93.0) fL MCH (26.0-32.0) pg MCHC (32.0-36.0) g/dL RDW Coeff of Blanka (10.0-15.0) % Plt Count (130-400) x10^3/uL Neut % (Auto) (50.0-80.0) % Lymph % (Auto) (25.0-50.0) % [place] % (Auto) (2.0-11.0) % Eos % (Auto) (0.0-4.0) % Baso % (Auto) (0.2-1.2) % PT 11.9 (9.5-12.3) SEC INR 1.1 L (2.0-3.5) APTT 24.7 L (25.6-32.8) SEC VBG pH (7.33-7.43) pH Sodium (136-145) mmol/L Potassium (3.5-5.1) mmol/L Chloride (98-107) mmol/L Carbon Dioxide (21-32) mmol/L Anion Gap (10-20) mmol/L BUN (7-18) mg/dL Creatinine (0.55-1.02) mg/dL Est Cr Clr Drug Dosing mL/min Estimated GFR (MDRD) Glucose (74-106) mg/dL Lactic Acid (0.4-2.0) mmol/L Calcium (8.5-10.1) mg/dL Corrected Calcium (8.5-10.1) mg/dL Magnesium (1.8-2.4) mg/dL Total Bilirubin (0.2-1.0) mg/dL AST (15-37) U/L ALT (14-59) U/L Alkaline Phosphatase (46-116) U/L C-Reactive Protein (<=0.9) mg/dL Total Protein (6.4-8.2) g/dL Albumin (3.4-5.0) g/dL Globulin Albumin/Globulin Ratio Amylase (25-115) U/L Lipase (73-393) U/L Urine Color Yellow (YELLOW) Urine Appearance Cloudy H (CLEAR) Urine pH 5.0 (5.0-8.0) Ur Specific [place] 1.020 Urine Protein 100 H (NEGATIVE) mg/dL Urine Glucose (UA) 500 H (NEGATIVE) mg/dL Urine Ketones Trace H (NEGATIVE) mg/dL Urine Occult Blood Small H (NEGATIVE) Urine Nitrite Negative (NEGATIVE) Urine Bilirubin Negative (NEGATIVE) Urine Urobilinogen 0.2 (0.2) EU/dL Ur Leukocyte Esterase Small H (NEGATIVE) U Hyaline Cast (Auto) Few Urine RBC 10-20 H (NOT SEEN) /HPF Urine WBC 10-20 H (NOT SEEN) /HPF Ur Squamous Epith Cells Rare (NEGATIVE) /HPF Urine Bacteria Many H (NEGATIVE) /HPF Urine Mucus Few H (NEGATIVE) /LPF SARS CoV-2 RNA Rapid GEOFF Negative (NEGATIVE) 06/01/20 06/01/20 06/01/20 Range/Units 19:20 19:20 19:20 WBC 10.5 H (4.0-10.0) x10^3/uL RBC 4.56 (4.00-5.50) x10^6/uL Hgb 13.7 D (12.0-16.0) g/dL Hct 40.1 (33.0-47.0) % MCV 87.9 (78.0-93.0) fL MCH 30.0 (26.0-32.0) pg MCHC 34.2 (32.0-36.0) g/dL RDW Coeff of Blanka 13.9 (10.0-15.0) % Plt Count 416 H (130-400) x10^3/uL Neut % (Auto) 84.8 H (50.0-80.0) % Lymph % (Auto) 10.3 L (25.0-50.0) % Trinity % (Auto) 4.6 (2.0-11.0) % Eos % (Auto) 0.1 (0.0-4.0) % Baso % (Auto) 0.2 (0.2-1.2) % PT (9.5-12.3) SEC INR (2.0-3.5) APTT (25.6-32.8) SEC VBG pH (7.33-7.43) pH Sodium 128 L* D (136-145) mmol/L Potassium 3.0 L (3.5-5.1) mmol/L Chloride 92 L D (98-107) mmol/L Carbon Dioxide 20 L (21-32) mmol/L Anion Gap 19.0 (10-20) mmol/L BUN 29 H (7-18) mg/dL Creatinine 1.7 H (0.55-1.02) mg/dL Est Cr Clr Drug Dosing 23.10 mL/min Estimated GFR (MDRD) 28 Glucose 477 H* (74-106) mg/dL Lactic Acid 7.0 H* (0.4-2.0) mmol/L Calcium 9.2 (8.5-10.1) mg/dL Corrected Calcium 10.08 (8.5-10.1) mg/dL Magnesium 1.9 (1.8-2.4) mg/dL Total Bilirubin 0.6 (0.2-1.0) mg/dL AST 15 (15-37) U/L ALT 25 (14-59) U/L Alkaline Phosphatase 92 (46-116) U/L C-Reactive Protein 2.7 H (<=0.9) mg/dL Total Protein 6.9 (6.4-8.2) g/dL Albumin 2.9 L (3.4-5.0) g/dL Globulin 4.0 Albumin/Globulin Ratio 0.73 Amylase 29 (25-115) U/L Lipase 610 H (73-393) U/L Urine Color (YELLOW) Urine Appearance (CLEAR) Urine pH (5.0-8.0) Ur Specific [place] Urine Protein (NEGATIVE) mg/dL Urine Glucose (UA) (NEGATIVE) mg/dL Urine Ketones (NEGATIVE) mg/dL Urine Occult Blood (NEGATIVE) Urine Nitrite (NEGATIVE) Urine Bilirubin (NEGATIVE) Urine Urobilinogen (0.2) EU/dL Ur Leukocyte Esterase (NEGATIVE) U Hyaline Cast (Auto) Urine RBC (NOT SEEN) /HPF Urine WBC (NOT SEEN) /HPF Ur Squamous Epith Cells (NEGATIVE) /HPF Urine Bacteria (NEGATIVE) /HPF Urine Mucus (NEGATIVE) /LPF SARS CoV-2 RNA Rapid GEOFF (NEGATIVE) 06/01/20 Range/Units 20:14 WBC (4.0-10.0) x10^3/uL RBC (4.00-5.50) x10^6/uL Hgb (12.0-16.0) g/dL Hct (33.0-47.0) % MCV (78.0-93.0) fL MCH (26.0-32.0) pg MCHC (32.0-36.0) g/dL RDW Coeff of Blanka (10.0-15.0) % Plt Count (130-400) x10^3/uL Neut % (Auto) (50.0-80.0) % Lymph % (Auto) (25.0-50.0) % Trinity % (Auto) (2.0-11.0) % Eos % (Auto) (0.0-4.0) % Baso % (Auto) (0.2-1.2) % PT (9.5-12.3) SEC INR (2.0-3.5) APTT (25.6-32.8) SEC VBG pH 7.43 (7.33-7.43) pH Sodium (136-145) mmol/L Potassium (3.5-5.1) mmol/L Chloride (98-107) mmol/L Carbon Dioxide (21-32) mmol/L Anion Gap (10-20) mmol/L BUN (7-18) mg/dL Creatinine (0.55-1.02) mg/dL Est Cr Clr Drug Dosing mL/min Estimated GFR (MDRD) Glucose (74-106) mg/dL Lactic Acid (0.4-2.0) mmol/L Calcium (8.5-10.1) mg/dL Corrected Calcium (8.5-10.1) mg/dL Magnesium (1.8-2.4) mg/dL Total Bilirubin (0.2-1.0) mg/dL AST (15-37) U/L ALT (14-59) U/L Alkaline Phosphatase (46-116) U/L C-Reactive Protein (<=0.9) mg/dL Total Protein (6.4-8.2) g/dL Albumin (3.4-5.0) g/dL Globulin Albumin/Globulin Ratio Amylase (25-115) U/L Lipase (73-393) U/L Urine Color (YELLOW) Urine Appearance (CLEAR) Urine pH (5.0-8.0) Ur Specific [place] Urine Protein (NEGATIVE) mg/dL Urine Glucose (UA) (NEGATIVE) mg/dL Urine Ketones (NEGATIVE) mg/dL Urine Occult Blood (NEGATIVE) Urine Nitrite (NEGATIVE) Urine Bilirubin (NEGATIVE) Urine Urobilinogen (0.2) EU/dL Ur Leukocyte Esterase (NEGATIVE) U Hyaline Cast (Auto) Urine RBC (NOT SEEN) /HPF Urine WBC (NOT SEEN) /HPF Ur Squamous Epith Cells (NEGATIVE) /HPF Urine Bacteria (NEGATIVE) /HPF Urine Mucus (NEGATIVE) /LPF SARS CoV-2 RNA Rapid GEOFF (NEGATIVE) Meds: Medications Generic Name Dose Route Start Last Admin Trade Name Caterina PRN Reason Stop Dose Admin Sodium Chloride 1,000 mls @ 500 mls/hr 06/01/20 20:16 06/01/20 20:10 Normal Saline IV 06/01/20 22:15 500 mls/hr ONETIME ONE Administration Potassium Chloride 20 meq/ 50 mls @ 50 mls/hr 06/01/20 21:15 Premix IV 06/02/20 02:14 Q2H MARIAH Sodium Chloride 1,000 mls @ 100 mls/hr 06/01/20 21:15 Normal Saline IV ASDIRECTED MARIAH Sodium Chloride 10 ml 06/01/20 18:49 Saline Flush FLUSH ASDIRECTED PRN Keep Vein Open Discontinued Medications Generic Name Dose Route Start Last Admin Trade Name Caterina PRN Reason Stop Dose Admin Acetaminophen 650 mg 06/01/20 21:00 Tylenol PO Q4H PRN Pain (Mild 1-3)/fever Ceftriaxone Sodium 1 gm 06/01/20 20:04 06/01/20 20:15 Rocephin IVPUSH 06/01/20 20:05 1 gm STAT ONE Administration Sodium Chloride 500 mls @ 500 mls/hr 06/01/20 20:08 Normal Saline IV 06/01/20 21:07 ONETIME ONE Ondansetron HCl 4 mg 06/01/20 21:00 Zofran Odt PO Q4H PRN nausea, able to take PO Temazepam 15 mg 06/01/20 21:00 Restoril PO BEDTIME PRN Sleep Departure - Departure Time of Disposition: 20:40 Condition: Good Sepsis Event Note (ED) - Focused Exam Vital Signs: Vital Signs Temp Pulse Resp BP Pulse Ox 06/01/20 18:35 36.8 C 106 H 20 148/74 H 95 - My Orders Last 24 Hours: My Active Orders 06/01/20 20:10 Chest 1V Frontal [CR] Stat 06/01/20 20:14 SALICYLATE [REF] Stat 06/01/20 20:16 Sodium Chloride 0.9% [Normal Saline] 1,000 ml IV ONETIME - Assessment/Plan Admission H&P: Please use this note as an admission H&P Last 24 Hours: My Active Orders 06/01/20 20:10 Chest 1V Frontal [CR] Stat 06/01/20 20:14 SALICYLATE [REF] Stat 06/01/20 20:16 Sodium Chloride 0.9% [Normal Saline] 1,000 ml IV ONETIME Assessment:: 1)Recurrent UTI 2)Electrolyte Imbalance 3)Advancing Age 4)Weakness/Frequent Falls 5)Elevated Lipase Plan: -Admit to Observation -Will have Dr Nguyen see this patient in the AM -Ceftriaxone IVP given for UTI in the ER -IV replacement with NS tonight along with Potassium repletion -Will repeat Lactic Acid and BMP in 4 hours
[2020-06-01 19:46] LABS: PTT,PARTIAL THROMBOPLSTIN TIME 24.7 SEC (25.6-32.8)
[2020-06-01] MEDS ORDERED: cefTRIAXone 1 GM Vial IVPUSH ONE (20:04)
[2020-06-01] MEDS ORDERED: Sodium Chloride 0.9% 500 ML IV ONE (20:08)
[2020-06-01] MEDS ORDERED: Sodium Chloride 0.9% 1,000 ML IV ONE (20:16)
[2020-06-01] MEDS ORDERED: Temazepam 15 MG Cap PO PRN ×2 (21:00→21:12)
[2020-06-01] MEDS ORDERED: Ondansetron 4 MG Tab.DIS PO PRN ×2 (21:00→21:12)
[2020-06-01] MEDS ORDERED: Acetaminophen 325 MG Tab PO PRN ×2 (21:00→21:12)
[2020-06-01] MEDS ORDERED: Metoclopramide 5 MG Tab PO PRN (21:22)
[2020-06-01] MEDS ORDERED: Melatonin 3 MG Tab PO PRN (21:22)
[2020-06-01] MEDS ORDERED: Glucagon,Human Recombinant 1 MG Vial IM PRN (21:22)
[2020-06-01] MEDS ORDERED: 50% Dextrose in Water 50 ML Syringe IV PRN (21:22)
[2020-06-01] MEDS ORDERED: Sodium Chloride 0.9% 1,000 ML IV SCH (21:30)
[2020-06-01] MEDS ORDERED: Potassium Chloride Riders 20 MEQ in Premix Bag 1 BAG IV SCH (21:30)
[2020-06-01] MEDS: Sodium Chloride 0.9% 1,000 ML IV SCH (22:57)
[2020-06-01] MEDS: Potassium Chloride Riders 20 MEQ in Premix Bag 1 BAG IV SCH (22:58)
[2020-06-01 23:50] LABS: ANION GAP 14.8 mmol/L (10-20)
[2020-06-02] MEDS: Potassium Chloride Riders 20 MEQ in Premix Bag 1 BAG IV SCH ×2 (01:02→03:51)
[2020-06-02 07:17] LABS: ANION GAP 14.5 mmol/L (10-20)
[2020-06-02] MEDS: Sodium Chloride 0.9% 1,000 ML IV SCH (07:42)
[2020-06-02] MEDS: Aspirin 81 MG Tab.Chew PO SCH (07:43)
[2020-06-02] MEDS: Omeprazole 20 MG Cap.CR PO SCH (07:43)
[2020-06-02] MEDS: Lisinopril 10 MG Tab PO SCH (07:43)
[2020-06-02] MEDS: Insulin Glarg,Human.Rec.Analog 100 Unit/ML SUBCUT SCH (07:44)
[2020-06-02] MEDS ORDERED: Metoprolol Succinate 50 MG Tab.ER PO SCH (08:00)
--- NOTE | 2020-06-02 08:06 | CR ---
[id number] RAD/RAD Chest PA or AP 1V EXAM: SINGLE VIEW CHEST. INDICATION: ELEVATED LACTIC ACID COMPARISON: CORRELATION IS MADE WITH APRIL 13, 2020 FINDINGS: The lungs are clear The cardiomediastinal contour is stable IMPRESSION: NO PNEUMONIA Ricardo Sampson MD 06/02/20 0805 Thank you for allowing us to participate in the care of your patient.
[2020-06-02] MEDS: Potassium Chloride 10 MEQ Tab.ER PO SCH (11:50)
[2020-06-02] MEDS: cefTRIAXone 1 GM Vial IVPUSH SCH (20:37)
[2020-06-02] MEDS: Sodium Chloride 0.9% 10 ML Syringe FLUSH PRN (20:37)
[2020-06-02] MEDS ORDERED: 50% Dextrose in Water 50 ML Syringe IV PRN (21:26)
[2020-06-02] MEDS ORDERED: Glucagon,Human Recombinant 1 MG Vial IM PRN (21:26)
[2020-06-03 06:57] LABS: ANION GAP 10.9 mmol/L (10-20); CHLORIDE,CL 101 mmol/L (98-107); SODIUM,NA 133 mmol/L (136-145)
--- NOTE | 2020-06-03 07:20 | PN ---
Progress Note for JUDAH WRIGHT Date: 06/02/2020 Room #: .202 HISTORY OF PRESENT ILLNESS: This is an 84-year-old admitted during the night with UTI and sick to her stomach for the last 3 or 4 days. The patient has been having vomiting and diarrhea. She had a similar episode back in March and was concerned for an esophageal perforation. However, she refused any surgery and went home and had actually done well until on the when she fell and was already having vomiting then. There was no lab work done on that episode, but when she came in yesterday, her white count was 10.5, hemoglobin 13.7, platelets 416. Sodium 128, potassium 3, glucose 477, lactic 7. She has been on insulin. She reports that she is not taking her Lantus. Her UA had 10-20 wbc's and she does have a history of recurrent bladder infections. ALLERGIES: Include Lipitor. MEDICATION LIST: Includes aspirin 81 mg daily, Tylenol as needed, vitamin D 1000 daily, lactobacillus twice daily, multivitamin daily, glipizide 10 mg b.i.d., Lantus 15 units daily, lisinopril 10 mg daily, melatonin 3 mg at bedtime, Reglan 5 mg daily as needed for sleep, Toprol 50 mg daily, and Prilosec 20 mg daily. PAST MEDICAL HISTORY: Does include the type 2 diabetes, uncontrolled, essential hypertension, atrial fibrillation refusing Coumadin, hyperlipidemia, history of colon cancer with previous surgery, mixed urinary incontinence, osteoarthritis, recurrent UTIs, and spinal stenosis. PAST SURGICAL HISTORY: She has had a cholecystectomy, colon cancer surgery, and appendectomy. SOCIAL HISTORY: She is . She lives at home with her son. She is a retired teacher. She is a nonsmoker. Denies alcohol use. FAMILY HISTORY: Both parents are . She had a sister who of pancreatic cancer. REVIEW OF SYSTEMS: Constitutional: The patient has not had any fever or chills. She is not aware of any weight loss, but overall is down about 8 pounds since March. HEENT: No sore throat. No trouble swallowing. Abdomen: See HPI. Gastroinestinal: She has had nausea, vomiting, and diarrhea. Respiratory: No cough. No shortness of breath. Cardiac: No chest pain. She has not noticed the faster heart beats. Musculoskeletal: She has chronic back pain. Genitourinary: She denies any burning with urination currently. She has already received antibiotics. Neurologic: No confusion. No new weakness. Otherwise, all systems reviewed and found to be negative unless otherwise stated. PHYSICAL EXAMINATION: Vital Signs: This morning, temperature 99.3, pulse 95, but some rates were up to the 120s. Blood pressure 138/60, respiratory rate 15, and O2 of 96% on room air. General: She is in no acute distress. Heart: Irregularly irregular. Lungs: Sounds are clear to auscultation bilaterally without crackles or wheezes. Abdomen: Has positive bowel sounds. It is soft, nondistended, nontender. Extremities: Warm and dry. No edema. Mental Status: She is alert and oriented x3. LABORATORY WORK: in [facility] ASSESSMENT: 1. Nausea, vomiting, diarrhea. The patient's symptoms have resolved. Unknown if this is gastroenteritis or related to her previous episode for possible gastric or esophageal perforation. At any rate, she has improved clinically and tolerating a diet. We will continue to monitor. 2. Atrial fibrillation with rapid ventricular response. We will see if her heart rates are under improved control after getting her medications this morning. If not, I will add digoxin or increase Toprol 3. Type 2 diabetes, uncontrolled. Her blood sugars have come down with fluids. We will add meal insulin 3-5 units t.i.d. if needed. 4. Urinary tract infection. Culture already showing gram negative. We will continue the intravenous Rocephin and upgrade the patient to acute cares. 5. Weakness and deconditioning with falls at home. We will get Physical Therapy involved along with Visual Developer. The patient may require detention stay. 6. Remote history of colon cancer. She has denied any blood in her stool. PLAN: The patient will continue on acute cares. We will treat her UTI. We will get her up and working with therapies. Currently, tolerating a diet, so no other GI imaging is indicated. MKA: 06/02/2020 18:05:28 MODL: 06/02/2020 18:41:09 /[id number] [place]
[2020-06-03] MEDS: Aspirin 81 MG Tab.Chew PO SCH (08:42)
[2020-06-03] MEDS: Lisinopril 10 MG Tab PO SCH (08:48)
[2020-06-03] MEDS: Metoprolol Succinate 50 MG Tab.ER PO SCH (08:48)
[2020-06-03] MEDS: Omeprazole 20 MG Cap.CR PO SCH (08:48)
[2020-06-03] MEDS: Potassium Chloride 10 MEQ Tab.ER PO SCH (08:48)
[2020-06-03] MEDS: Insulin Glarg,Human.Rec.Analog 100 Unit/ML SUBCUT SCH (08:49)
[2020-06-03] MEDS: Aspirin 81 MG Tab.EC PO SCH (08:49)
[2020-06-03] MEDS: Insulin Lispro 100 Units/ML 3 ML Vial SUBCUT SCH ×3 (08:53→18:18)
[2020-06-03] MEDS ORDERED: Phenylephrine Supp RECTAL PRN (16:26)
--- NOTE | 2020-06-03 16:52 | PN ---
Progress Note for JUDAH WRIGHT Date: 06/03/2020 Room #: [facility] SUBJECTIVE: This is hospital day #2 on an 84-year-old admitted with nausea, vomiting, diarrhea. She actually had a positive lipase on admission for 610. Her nausea, vomiting, diarrhea have resolved. In fact, she told me she had no bowel movements, but the nurse reported 3 but not diarrhea. She has been eating about 50% of her meals. She otherwise has been sleeping quite a bit, like most of the day. She was able to work with PT. She got around okay but could use a few days on a swing bed. She feels like her bladder is doing okay. She was also started on antibiotics for a UTI. She has uncontrolled diabetes, and with adding meal insulin, her blood sugar has improved. Otherwise, she has not had any cough. No shortness of breath. OBJECTIVE: Vital Signs: Her temperature is 97.7, her pulse is 83, her blood pressure is 181/105, respiratory rate 18, and O2 of 96% on room air. General: She is in no acute distress. Heart: Irregularly irregular. Respiratory: Lung sounds are clear to auscultation bilaterally without crackles or wheezes. Abdomen: Positive bowel sounds. Soft, nondistended, nontender. Extremities: Warm and dry. No edema. Mental Status: She is alert. She is aware she is in the hospital. She recognizes me. LABORATORY DATA: Her lab work does show white count normal at 8.2, hemoglobin 12.4, platelets 389. Sodium up to 133, potassium 3.5, chloride 98, bicarb 24, BUN 20, creatinine 1, glucose 231, lactic down to 1.6, calcium 8.7, magnesium 1.9, bilirubin 0.5, AST 12, ALT 21, CRP 2.3, albumin 2.8. Urinary culture is growing E coli sensitive to Rocephin. ASSESSMENT AND PLAN: 1. Recurrent urinary tract infection, on IV Rocephin day #2. We will do bladder scans to ensure she is not retaining. 2. Nausea, vomiting, diarrhea due to pancreatitis, presumably from her uncontrolled diabetes, but we will get an outpatient or inpatient ultrasound to check for gallstones, although she would not be a very good surgical candidate. 3. Atrial fibrillation with rapid ventricular rates. Given her elevated blood pressure, I am going to increase her Toprol. Her rates though have improved slightly since yesterday and mostly are below 100. 4. Type 2 diabetes, uncontrolled. I will add 3 units of insulin with meals and continue her Lantus. 5. Essential hypertension, elevated, should improve with increase in Toprol. 6. Weakness and deconditioning. She is working with PT. 7. Remote history of colon cancer. PLAN: At this point, we will get a gallbladder ultrasound. We will keep her up and working with therapies. We will continue antibiotics for the UTI, likely be switching over to oral, potentially on to swing bed in the next couple of days. We will repeat lab work tomorrow. We will continue diet as tolerated. MKA: 06/03/2020 16:25:14 MODL: 06/03/2020 16:43:45 /[id number]
[2020-06-03] MEDS: Sodium Chloride 0.9% 10 ML Syringe FLUSH PRN (20:43)
[2020-06-03] MEDS: cefTRIAXone 1 GM Vial IVPUSH SCH (20:44)
[2020-06-04 06:55] LABS: ANION GAP 14.1 mmol/L (5-15); CHLORIDE,CL 99 mmol/L (98-107); SODIUM,NA 132 mmol/L (136-145)
[2020-06-04] MEDS: Aspirin 81 MG Tab.EC PO SCH (07:51)
[2020-06-04] MEDS: Metoprolol Succinate 50 MG Tab.ER PO SCH (07:51)
[2020-06-04] MEDS: Lisinopril 10 MG Tab PO SCH (07:52)
[2020-06-04] MEDS: Potassium Chloride 10 MEQ Tab.ER PO SCH (07:52)
[2020-06-04] MEDS: Omeprazole 20 MG Cap.CR PO SCH (07:52)
[2020-06-04] MEDS: Insulin Lispro 100 Units/ML 3 ML Vial SUBCUT SCH ×3 (07:52→18:13)
[2020-06-04] MEDS: Insulin Glarg,Human.Rec.Analog 100 Unit/ML SUBCUT SCH (07:53)
[2020-06-04] MEDS ORDERED: Furosemide 20 MG/2 ML VIAL IV ONE (08:59)
[2020-06-04] MEDS: Enoxaparin 40 MG/0.4 ML Syringe SUBCUT SCH (10:17)
[2020-06-04] MEDS: Sodium Chloride 0.9% 10 ML Syringe FLUSH PRN ×2 (10:18→20:03)
--- NOTE | 2020-06-04 13:10 | PN ---
Progress Note for JUDAH WRIGHT Date: 06/04/2020 Room #: [facility] SUBJECTIVE: This is hospital day #3 on an 84-year-old admitted with a UTI and pancreatitis. Her stomach pain is now gone. She is tolerating 75% of her diet. She is no longer having nausea or diarrhea. She had a good bowel movement this morning. She is not having any cough or shortness of breath or headaches, but blood pressures are elevated. She did get IV fluids initially in her hospital stay and had Afib with RVR. Toprol was increased and now her heart rates are controlled, but blood pressure remains high. She has been on IV Rocephin for the E coli UTI, last dose given last night. She has been afebrile. She is more awake and alert and working with therapies and actually hopeful to go home soon. The patient does understand that she needs more cares and her son has not been allowing people in the home due to COVID. She is agreeable to do a short-term senior living stay. PHYSICAL EXAMINATION: Vital signs: Objectively, her temperature is 98, pulse 70, blood pressure 162/82, respiratory rate 14, and O2 of 95% on room air. General: She is in no acute distress. Heart: Irregularly irregular. Lungs: Her lungs sounds are decreased with some faint crackles in both bases. Abdomen: Positive bowel sounds. Soft, nondistended, nontender. Extremities: Warm and dry. Trace edema. Mental status: Alert and orientated x3. LAB WORK: For her includes white count 5.3, hemoglobin 12.5, platelets 354. Sodium 132, potassium 4.1, chloride 99, bicarb 23, BUN 9, creatinine 0.8, glucose 183. ASSESSMENT: 1. Recurrent urinary tract infection due to Escherichia coli. We will change her over to oral Macrobid 100 mg twice daily to complete a 7-day course of antibiotics. 2. Pancreatitis, resolved. She is tolerating a diet. Ultrasound has been ordered to look for gallstones. 3. Atrial fibrillation, now rate controlled. She is refusing anticoagulation or Coumadin. 4. Type 2 diabetes, uncontrolled but improved with meal insulin. Now that she is on meal insulin, I will stop glipizide and increase insulin to 5 units t.i.d. with meals and continue Lantus. 5. Essential hypertension, likely due to some fluid retention. We will add on a proBNP. She does not have a history of heart failure. I will give her a dose of IV Lasix. I think this will help with some diuresis and improve her blood pressures. 6. Hyponatremia, mild probably due to the fluid retention. We will repeat in the morning. 7. Deconditioning and weakness. She is working with PT. She needs some assistance with ADLs like bathing. We will work with Geospatial Imagery Intelligence Analyst to try to get her a place at [facility] for a skilled stay. 8. Remote history of colon cancer. PLAN: At this point, following lab work, awaiting gallbladder ultrasound, changing antibiotics to oral, giving her a dose of IV Lasix today. For DVT prophylaxis, she is on Lovenox. MKA: 06/04/2020 09:05:17 MODL: 06/04/2020 09:31:51 /[id number]
[2020-06-04] MEDS: Nitrofurantoin Monohydrate/Macrocrystalline 100 MG Cap PO SCH (20:04)
[2020-06-05 07:15] LABS: ANION GAP 11.2 mmol/L (5-15)
[2020-06-05] MEDS: Nitrofurantoin Monohydrate/Macrocrystalline 100 MG Cap PO SCH ×2 (07:54→19:58)
[2020-06-05] MEDS: Lisinopril 10 MG Tab PO SCH (07:54)
[2020-06-05] MEDS: Metoprolol Succinate 50 MG Tab.ER PO SCH (07:54)
[2020-06-05] MEDS: Potassium Chloride 10 MEQ Tab.ER PO SCH (07:54)
[2020-06-05] MEDS: Omeprazole 20 MG Cap.CR PO SCH (07:56)
[2020-06-05] MEDS: Insulin Glarg,Human.Rec.Analog 100 Unit/ML SUBCUT SCH (07:56)
[2020-06-05] MEDS: Aspirin 81 MG Tab.EC PO SCH (07:56)
[2020-06-05] MEDS: Insulin Lispro 100 Units/ML 3 ML Vial SUBCUT SCH ×3 (07:59→18:26)
[2020-06-05] MEDS: Enoxaparin 40 MG/0.4 ML Syringe SUBCUT SCH (09:54)
--- NOTE | 2020-06-05 12:00 | US ---
[id number] US/US Abdomen Limited Exam: US Abdomen Limited Clinical Data: PANCREATITIS COMPARISON: CORRELATION IS MADE WITH THE CAT SCAN OF APRIL 13, 2020 FINDINGS: The pancreas is not well imaged today on ultrasound There is a fatty appearance of the liver There is no free fluid There are no discrete fluid collections IMPRESSION: LIMITED STUDY NO OBVIOUS ABNORMALITY Ricardo Sampson MD 06/05/20 4318 Thank you for allowing us to participate in the care of your patient.
--- NOTE | 2020-06-05 20:40 | PN ---
Progress Note for JUDAH WRIGHT Date: 06/05/2020 Room #: [facility]202 SUBJECTIVE: Hospital day #4 on an 84-year-old admitted for pancreatitis with nausea, vomiting, and diarrhea. She was found to have severe hyperglycemia. She has been placed on insulin at meals, which has helped. She had her Lantus increased this morning. She no longer has an upset stomach. She is tolerating a diet. She is no longer having diarrhea. She has not had any fever or chills. No cough. No chest pain or shortness of breath. Her urine culture is growing E coli, sensitive to Rocephin, and she was switched over to Macrobid yesterday and is tolerating that. She has recurrent UTIs, so plan a full 7-day course. The patient has been working with both PT and OT. Yesterday, with her daughter in the room, she was agreeable to going to the [facility], but today she absolutely refuses. She lives at home with her son. She understands that he does not help her with bathing, and she refuses to have home health come in the house right now. Honestly, I feel like she does not want to leave her son home alone. OBJECTIVE: Vital Signs: Her temperature 98.1, pulse 81, blood pressure 145/69, respiratory rate 17, and O2 of 96 on room air. General: She is in no acute distress. Heart: Irregularly irregular. Lungs: Sounds are clear to auscultation bilaterally without crackles or wheezes. Abdomen: Has positive bowel sounds. Soft, nondistended, nontender. Extremities: Warm and dry. No edema. Mental Status: Alert and orientated x3. Ultrasound, right upper quadrant: The patient had a previous cholecystectomy for gallstones. Her liver is unremarkable. ASSESSMENT AND PLAN: 1. Nausea, vomiting, diarrhea related to pancreatitis, resolved. 2. Atrial fibrillation with rapid ventricular rates, improved on increased Toprol. 3. Essential hypertension, still elevated, but improved with IV Lasix today. No indication though for ongoing Lasix. We will continue to monitor. 4. Type 2 diabetes, uncontrolled with Hyperglycemia. We will increase her Lantus. We will need to have her on 25 units at home. 5. Urinary tract infection with Escherichia coli. We will treat her with a 1- week course of antibiotic. She will go home on Macrobid. 6. Weakness and deconditioning with a fall at home. She is doing much better. She understands the risks of going home and refuses home care. 7. Remote history of colon cancer. 8. Mild hyponatremia, sodium 134 today. 9. Fatty liver by ultrasound her LFTs have been ok PLAN: The patient will return home with her son in the a.m. unless she has further problems. She was getting the ultrasound and working with therapies today. DVT prophylaxis is with Lovenox. Continue q.i.d. checks and insulin adjustments are being made. MKA: 06/05/2020 20:06:56 MODL: 06/05/2020 20:30:35 /[id number]
[2020-06-06] MEDS: Metoprolol Succinate 50 MG Tab.ER PO SCH (07:42)
[2020-06-06] MEDS: Aspirin 81 MG Tab.EC PO SCH (07:43)
[2020-06-06] MEDS: Lisinopril 10 MG Tab PO SCH (07:43)
[2020-06-06] MEDS: Nitrofurantoin Monohydrate/Macrocrystalline 100 MG Cap PO SCH (07:43)
[2020-06-06] MEDS: Potassium Chloride 10 MEQ Tab.ER PO SCH (07:43)
[2020-06-06] MEDS: Insulin Lispro 100 Units/ML 3 ML Vial SUBCUT SCH ×2 (07:47→12:08)
[2020-06-06] MEDS ORDERED: Insulin Glarg,Human.Rec.Analog 100 Unit/ML SUBCUT SCH (08:00)
[2020-06-06] MEDS ORDERED: Omeprazole 20 MG Cap.CR PO SCH (08:00)
[2020-06-06] MEDS: Enoxaparin 40 MG/0.4 ML Syringe SUBCUT SCH (10:11)
--- NOTE | 2020-06-06 19:18 | DISCH ---
PRIMARY DISCHARGE DIAGNOSES: 1. Pancreatitis, unknown etiology, possibly with her uncontrolled diabetes. She has had a previous cholecystectomy, and liver ultrasound was unremarkable. 2. Essential hypertension with elevated blood pressures, improved with increasing Toprol. 3. Atrial fibrillation with rapid ventricular response, known history. She refuses Coumadin. Improved with increasing metoprolol. 4. Type 2 diabetes, uncontrolled, improved with increased Lantus and meal insulin, but the patient refuses to take more than 1 shot a day at home, so she has increased up to 25 units of Lantus. 5. Escherichia coli urinary tract infection, treated initially with intravenous Rocephin. We will finish her course with Macrobid, which she got here yesterday and today and tolerated. 6. Weakness and deconditioning. She has greatly improved. She refuses to go to the [place] [facility]. She did work with therapies here, but refuses home health on discharge. 7. Remote history of colon cancer. 8. Mild hyponatremia. Sodium at 134 on discharge. 9. Fatty liver by ultrasound. REASON FOR ADMISSION: On the date of admission, this 84-year-old female who lives at home with her son, presented to the emergency room with nausea, vomiting, and diarrhea. She had been in a few days earlier for a fall. She was already having these symptoms and they progressed. Her abdominal discomfort resolved and she was tolerating a diet. Her lipase was elevated, but she had no further vomiting during her stay. She did have 3 loose stools 1 day, but after that this resolved and she was no longer having diarrhea. She stated always her breathing was good, but did receive 1 dose of IV Lasix when her blood pressure was quite elevated and she was felt to have some fluid congestion. Her proBNP was 726 at that time. The patient does not have a longstanding history of heart failure. It was felt that this was due to IV fluids given to her well under n.p.o. status for the pancreatitis. She also had a chest x-ray at discharge due to some mid thoracic back pain. She had previously fallen and no compression fracture was found. Deep breaths seem to make the pain worse and she was wondering if she had pleurisy, but she was not having any cough or fever. Chest x-ray did not show any severe widening of her mediastinum. Her pain was mild. She was offered to take Tylenol. She stated she had taken some, but she had not actually taken any. The patient was given Lovenox for DVT prophylaxis while she was here. Medication changes include Lantus up to 25 units daily, Toprol up to 100 mg daily. DISCHARGE PLANS AND INSTRUCTIONS: She will follow up in the clinic in 1 to 2 weeks with a BMP. She will be on Macrobid 100 b.i.d. for 3 more days, metoprolol now again 100 mg, Lantus 25 units daily. She refuses home health. PHYSICAL EXAMINATION: Discharging Vitals: Include a temperature of 98, pulse 68, blood pressure 135/63, respiratory rate 20, O2 of 97% on room air. General: She is in no acute distress. Heart: Irregularly irregular. Lungs: Sounds are clear to auscultation bilaterally without crackles or wheezes. Abdomen: Nondistended. Positive bowel sounds. Soft, nontender. Extremities: Warm and dry with just trace edema at both ankles. Mental Status: Alert and oriented x3. Her mood and affect are normal. She is not anxious. Back: Slightly tender in the mid thoracic vertebrae around T6-T7 with some muscle spasm noted, but no bruising appreciated. Greater than 30 minutes spent on the discharge process. MKA: 06/06/2020 16:40:29 MODL: 06/06/2020 19:11:04 /[id number]
--- NOTE | 2020-06-07 13:59 | CR ---
[id number] RAD/RAD Chest PA And Lateral EXAM: RAD Chest PA And Lateral INDICATION: BACK PAIN. COMPARISON: June 01, 2020. DISCUSSION: Cardiomediastinal silhouette is normal in size and contour. No infiltrate, effusion, pneumothorax, or edema. Pulmonary hyperinflation. IMPRESSION: No acute cardiopulmonary abnormality. Carlos Voss DO 06/07/20 0056 Thank you for allowing us to participate in the care of your patient.
== END 2020-06-06 16:00 | disposition home or self-care (01) | DRG 439 ==
LOC: VM.ED 18:30 → VM.MS 20:25 → INTOOBSV 06-02 11:17 → OBSVTOIN 06-02 11:17
PROVIDERS: ADMIT Internal Medicine; ATTEND Internal Medicine
DX: K85.90 Acute pancreatitis without necrosis or infection, unspecified (principal); N39.0 Urinary tract infection, site not specified; E87.1 Hypo-osmolality and hyponatremia; E87.8 Other disorders of electrolyte and fluid balance, not elsewhere classified; R74.8 Abnormal levels of other serum enzymes; R41.81 Age-related cognitive decline; B96.20 Unspecified Escherichia coli [E. coli] as the cause of diseases classified elsewhere; K76.0 Fatty (change of) liver, not elsewhere classified; W19.XXXA Unspecified fall, initial encounter; H91.90 Unspecified hearing loss, unspecified ear; R53.1 Weakness; R29.6 Repeated falls; Z79.82 Long term (current) use of aspirin; Z88.8 Allergy status to other drugs, medicaments and biological substances; Z79.4 Long term (current) use of insulin; M70.60 Trochanteric bursitis, unspecified hip; Z98.890 Other specified postprocedural states; Z90.49 Acquired absence of other specified parts of digestive tract; Z79.899 Other long term (current) drug therapy; H54.7 Unspecified visual loss; E78.00 Pure hypercholesterolemia, unspecified; I10 Essential (primary) hypertension; N39.46 Mixed incontinence; F41.9 Anxiety disorder, unspecified; E11.9 Type 2 diabetes mellitus without complications; Z85.038 Personal history of other malignant neoplasm of large intestine; Z20.822 Contact with and (suspected) exposure to COVID-19; I48.91 Unspecified atrial fibrillation; E78.5 Hyperlipidemia, unspecified; M19.90 Unspecified osteoarthritis, unspecified site; M48.00 Spinal stenosis, site unspecified
CPT/HCPCS: 36415; 51798; 71045; 71046; 76705; 80048; 80053; 80179; 81001; 82150; 82800; 82962; 83605; 83690; 83735; 83880; 85025; 85610; 85730; 86140; 87040; 87086; 87088; 87186; 87804; 87804-59; 96374; 97110-GP; 97116-GP; 97161-GP; 97165-GO; 97530-GP; 97535-GO; 99220; 99285-25; A9270-GY; G0378; J0696; J1650; J1815-GY; J1940; J3480; J7030; U0002

== ENCOUNTER 2020-07-16 14:59 | Inpatient (IN) | payer MEDICARE, OTHER ==
--- NOTE | 2020-07-16 15:59 | EDM.PDOC ---
ED HPI GENERAL MEDICAL PROBLEM - General Stated Complaint: STOMACH PAIN Time Seen by Provider: 07/16/20 15:09 Source of Information: Reports: Patient, Family - History of Present Illness INITIAL COMMENTS - FREE TEXT/NARRATIVE: Shaista is an 84 y/o female who is brought to the ER by her son. Over the course of the last day, she has had multiple bouts of loose, watery diarrhea. She is getting quite weak and needing assistance to transfer. Her son dropped her off at the ER door and is not available for any history. Patient reports that she was doing fine since she got back home from her recent hospital stay until yesterday when the diarrhea started. Denies any other symptoms. - Related Data Allergies Allergy/AdvReac Type Severity Reaction Status Date / Time atorvastatin [From Lipitor] AdvReac Unknown intolerance Verified 06/02/20 12:35 Home Meds: Home Meds Lisinopril 10 mg PO DAILY 03/03/15 [History] Acetaminophen [Tylenol] 650 mg PO Q4H PRN 04/19/19 [History] Melatonin 3 mg PO BEDTIME PRN 04/19/19 [History] L. Acidophilus/L.bulgaricus [Lactobacillus Tablet] 1 tab PO BIDAC 04/14/20 [History] glipiZIDE [Glucotrol] 10 mg PO BID@0700,1700 04/14/20 [History] Cholecalciferol (Vitamin D3) [Vitamin D3] 1,000 units PO DAILY 06/01/20 [History] Metoclopramide [Reglan] 5 mg PO DAILY PRN 06/01/20 [History] Multivitamin [Multi-Vitamin Daily] 1 tab PO DAILY 06/01/20 [History] Omeprazole 20 mg PO DAILY PRN 06/01/20 [History] Aspirin [Aspirin EC] 81 mg PO DAILY 06/02/20 [History] Insulin Glarg,Human.Rec.Analog [Lantus] 25 unit SUBCUT DAILY #15 ml 06/06/20 [Rx] Metoprolol Succinate [Toprol XL 50mg] 100 mg PO DAILY #30 tab.er 06/06/20 [Rx] Nitrofurantoin Banner/Macrocryst [Nitrofurantoin Banner-MCR] 100 mg PO BID #6 cap 06/06/20 [Rx] Past Medical History HEENT History: Reports: Other (See Below) Other HEENT History: hearing loss, wears glasses Cardiovascular History: Reports: Afib, High Cholesterol, Hypertension Other Gastrointestinal History: malignant neoplasm of colon, Genitourinary History: Reports: Other (See Below) Other Genitourinary History: mixed incontinence urge and stress. ecoli UTI Musculoskeletal History: Reports: Osteoarthritis, Other (See Below) Other Musculoskeletal History: trochanteric bursitis, spinal stenosis Psychiatric History: Reports: Anxiety Endocrine/Metabolic History: Reports: Diabetes, Type II, Other (See Below) Other Endocrine/Metabolic History: Hyponatremia, lactic acidosis Oncologic (Cancer) History: Reports: Colon - Infectious Disease History Infectious Disease History: Reports: Chicken Pox, Meningitis, Mumps, Rubella - Past Surgical History GI Surgical History: Reports: Appendectomy, Cholecystectomy, Colon, Colonoscopy Other GI Surgeries/Procedures: colon resection 1999, Social & Family History - Family History Family Medical History: No Pertinent Family History - Caffeine Use Caffeine Use: Reports: Coffee, Tea Review of Systems - Review of Systems Review Of Systems: See Below Constitutional: Reports: Weakness Eyes: Reports: No Symptoms Ears: Reports: No Symptoms Nose: Reports: No Symptoms Mouth/Throat: Reports: No Symptoms Respiratory: Reports: No Symptoms Cardiovascular: Reports: No Symptoms GI/Abdominal: Reports: Diarrhea Genitourinary: Reports: No Symptoms Musculoskeletal: Reports: No Symptoms Skin: Reports: No Symptoms Neurological: Reports: Weakness Psychiatric: Reports: No Symptoms ED EXAM, GENERAL - Physical Exam Exam: See Below General Appearance: Alert, WD/WN, No Apparent Distress (Elderly female, NAD. She is assited to the ER cart by nursing staff and her clothes are dirty and she is incontnent of loose diarrhea stool; poor hygiene noted.) Eye Exam: Bilateral Eye: PERRL Ears: Normal External Exam, Normal Canal, Hearing Grossly Normal Nose: Normal Inspection, Normal Mucosa Throat/Mouth: Normal Inspection, Normal Lips Head: Atraumatic, Normocephalic Neck: Supple Respiratory/Chest: No Respiratory Distress, Lungs Clear, Chest Non-Tender Cardiovascular: Normal Peripheral Pulses, Regular Rate, Rhythm, No Murmur GI/Abdominal: Normal Bowel Sounds, Soft, Non-Tender (Female) Exam: Normal External Exam Rectal (Female) Exam: Other (note abrasion to buttocks/coccyx region, skin in buttock and periregion is reddened and dried stool noted ) Back Exam: Normal Inspection Extremities: Normal Inspection, Normal Range of Motion, Normal Capillary Refill Neurological: Alert, Oriented, CN II-XII Intact Psychiatric: Normal Affect, Normal Mood Skin Exam: Warm, Dry, Intact, Normal Color Lymphatic: No Adenopathy #1 Interpretation EKG Date: 07/16/20 Time: 15:45 Rhythm: NSR Rate (Beats/Min): 73 [place]: Normal P-Wave: Present ST-T: Normal QT: Prolonged Comparison: Change From Previous EKG EKG Interpretation Comments: Compared to 04/13/2020 study, now regular with SR. Course - Vital Signs Text/Narrative:: 1509 The patient was seen by the TUGGER OPERATOR. Labs, CXR, adn EKG ordered. Dr Josefa Nguyen notified of patient arrival to the ER. 1700 Labs reviewed. Note Swvkmjx=701, Car Scrubber=1.5, Dbcncu=752, Chloride=95, CBC neuts=87.3%, CRP=1.9, Lactic Acid=5.6, TSH=2.577, Hrovxf=149, Amylase=32. Stool cx and C Diff pending. Labs called to Dr Jacey Thakkar, the prior authorization technician physician. Dr Thakkar will come to the hospital and admit the patient to Acute Care. - Orders/Labs/Meds Orders: Active Orders 24 hr Category Date Time Status Patient Status [ADT] Routine ADT 07/16/20 17:00 Ordered EKG Documentation Completion [RC] STAT Care 07/16/20 15:13 Active CLOSTRIDIUM DIFFICILE TOX RFLX [MREF] Stat Lab 07/16/20 15:22 Ordered CULTURE BLOOD [BC] Stat Lab 07/16/20 16:10 Received CULTURE BLOOD [BC] Stat Lab 07/16/20 16:24 Results STOOL CULTURE [MREF] Stat Lab 07/16/20 15:22 Ordered Sodium Chloride 0.9% [Saline Flush] Med 07/16/20 15:13 Active 10 ml FLUSH ASDIRECTED PRN Blood Culture x2 Reflex Set [OM.PC] Stat Oth 07/16/20 15:13 Ordered Isolation [COMM] Stat Oth 07/16/20 15:23 Ordered Saline Lock Insert [OM.PC] Stat Oth 07/16/20 15:13 Ordered Medication Orders Sodium Chloride (Saline Flush) 10 ml FLUSH ASDIRECTED PRN PRN Reason: Keep Vein Open Labs: Laboratory Tests 07/16/20 07/16/20 07/16/20 Range/Units 15:30 15:51 16:10 WBC 9.6 (4.0-10.0) x10^3/uL RBC 4.78 (4.00-5.50) x10^6/uL Hgb 14.3 (12.0-16.0) g/dL Hct 42.2 (33.0-47.0) % MCV 88.3 (78.0-93.0) fL MCH 29.9 (26.0-32.0) pg MCHC 33.9 (32.0-36.0) g/dL RDW Coeff of Blanka 13.8 (10.0-15.0) % Plt Count 333 (130-400) x10^3/uL Neut % (Auto) 87.3 H (50.0-80.0) % Lymph % (Auto) 9.3 L (25.0-50.0) % Banner % (Auto) 3.1 (2.0-11.0) % Eos % (Auto) 0.1 (0.0-4.0) % Baso % (Auto) 0.2 (0.2-1.2) % PT (9.9-12.5) SEC INR (2.0-3.5) APTT (25.6-32.8) SEC Sodium (136-145) mmol/L Potassium (3.5-5.1) mmol/L Chloride (98-107) mmol/L Carbon Dioxide (21-32) mmol/L Anion Gap (5-15) mmol/L BUN (7-18) mg/dL Creatinine (0.55-1.02) mg/dL Est Cr Clr Drug Dosing Estimated GFR (MDRD) Glucose (74-106) mg/dL Lactic Acid (0.4-2.0) mmol/L Calcium (8.5-10.1) mg/dL Corrected Calcium (8.5-10.1) mg/dL Magnesium (1.8-2.4) mg/dL Total Bilirubin (0.2-1.0) mg/dL AST (15-37) U/L ALT (14-59) U/L Alkaline Phosphatase (46-116) U/L Troponin I (<=0.056) ng/mL C-Reactive Protein (<=0.9) mg/dL Total Protein (6.4-8.2) g/dL Albumin (3.4-5.0) g/dL Globulin Albumin/Globulin Ratio Amylase (25-115) U/L Lipase (73-393) U/L TSH, Ultra Sensitive (0.358-3.74) uIU/mL Urine Color Yellow (YELLOW) Urine Appearance Slightly cloudy H (CLEAR) Urine pH 5.5 (5.0-8.0) Ur Specific [place] 1.025 Urine Protein 30 H (NEGATIVE) mg/dL Urine Glucose (UA) 500 H (NEGATIVE) mg/dL Urine Ketones 40 H (NEGATIVE) mg/dL Urine Occult Blood Trace-intact H (NEGATIVE) Urine Nitrite Negative (NEGATIVE) Urine Bilirubin Negative (NEGATIVE) Urine Urobilinogen 0.2 (0.2) EU/dL Ur Leukocyte Esterase Negative (NEGATIVE) U Hyaline Cast (Auto) Few Urine RBC 5-10 H (NOT SEEN) /HPF Urine WBC 0-5 (NOT SEEN) /HPF Ur Squamous Epith Cells Rare (NEGATIVE) /HPF Amorphous Sediment Occasional Urine Bacteria Rare (NEGATIVE) /HPF Urine Mucus Occasional H (NEGATIVE) /LPF SARS CoV-2 RNA Rapid GEOFF Negative (NEGATIVE) 07/16/20 07/16/20 07/16/20 Range/Units 16:10 16:10 16:10 WBC (4.0-10.0) x10^3/uL RBC (4.00-5.50) x10^6/uL Hgb (12.0-16.0) g/dL Hct (33.0-47.0) % MCV (78.0-93.0) fL MCH (26.0-32.0) pg MCHC (32.0-36.0) g/dL RDW Coeff of Blanka (10.0-15.0) % Plt Count (130-400) x10^3/uL Neut % (Auto) (50.0-80.0) % Lymph % (Auto) (25.0-50.0) % Banner % (Auto) (2.0-11.0) % Eos % (Auto) (0.0-4.0) % Baso % (Auto) (0.2-1.2) % PT 11.1 (9.9-12.5) SEC INR 1.0 L (2.0-3.5) APTT 22.5 L (25.6-32.8) SEC Sodium 132 L (136-145) mmol/L Potassium 4.8 (3.5-5.1) mmol/L Chloride 95 L (98-107) mmol/L Carbon Dioxide 23 (21-32) mmol/L Anion Gap 18.8 H (5-15) mmol/L BUN 14 (7-18) mg/dL Creatinine 1.5 H (0.55-1.02) mg/dL Est Cr Clr Drug Dosing TNP Estimated GFR (MDRD) 33 Glucose 452 H* (74-106) mg/dL Lactic Acid 5.6 H* (0.4-2.0) mmol/L Calcium 9.7 (8.5-10.1) mg/dL Corrected Calcium 10.42 H (8.5-10.1) mg/dL Magnesium 2.0 (1.8-2.4) mg/dL Total Bilirubin 0.5 (0.2-1.0) mg/dL AST 16 (15-37) U/L ALT 27 (14-59) U/L Alkaline Phosphatase 109 (46-116) U/L Troponin I < 0.017 (<=0.056) ng/mL C-Reactive Protein 1.9 H (<=0.9) mg/dL Total Protein 7.1 (6.4-8.2) g/dL Albumin 3.1 L (3.4-5.0) g/dL Globulin 4.0 Albumin/Globulin Ratio 0.78 Amylase 32 (25-115) U/L Lipase 115 (73-393) U/L TSH, Ultra Sensitive 2.577 (0.358-3.74) uIU/mL Urine Color (YELLOW) Urine Appearance (CLEAR) Urine pH (5.0-8.0) Ur Specific [place] Urine Protein (NEGATIVE) mg/dL Urine Glucose (UA) (NEGATIVE) mg/dL Urine Ketones (NEGATIVE) mg/dL Urine Occult Blood (NEGATIVE) Urine Nitrite (NEGATIVE) Urine Bilirubin (NEGATIVE) Urine Urobilinogen (0.2) EU/dL Ur Leukocyte Esterase (NEGATIVE) U Hyaline Cast (Auto) Urine RBC (NOT SEEN) /HPF Urine WBC (NOT SEEN) /HPF Ur Squamous Epith Cells (NEGATIVE) /HPF Amorphous Sediment Urine Bacteria (NEGATIVE) /HPF Urine Mucus (NEGATIVE) /LPF SARS CoV-2 RNA Rapid GEOFF (NEGATIVE) Meds: Medications Generic Name Dose Route Start Last Admin Trade Name Freq PRN Reason Stop Dose Admin Sodium Chloride 10 ml 07/16/20 15:13 Saline Flush FLUSH ASDIRECTED PRN Keep Vein Open - Radiology Interpretation Free Text/Narrative:: XR Chest 1V=no acute findings Departure - Departure Time of Disposition: 17:06 Disposition: Admitted As Inpatient 64 Condition: Good Clinical Impression: Acute kidney injury, Diarrhea, Elevated lactic acid level - Discharge Information Referrals: Josefa Nguyen DO [Primary Care Provider] - Additional Instructions: -See orders and H&P by Dr Yuki Thakkar - My Orders Last 24 Hours: My Active Orders 07/16/20 15:13 EKG Documentation Completion [RC] STAT Sodium Chloride 0.9% [Saline Flush] 10 ml FLUSH ASDIRECTED PRN Blood Culture x2 Reflex Set [OM.PC] Stat Saline Lock Insert [OM.PC] Stat 07/16/20 15:22 CLOSTRIDIUM DIFFICILE TOX RFLX [MREF] Stat STOOL CULTURE [MREF] Stat 07/16/20 15:23 Isolation [COMM] Stat 07/16/20 16:10 CULTURE BLOOD [BC] Stat 07/16/20 16:24 CULTURE BLOOD [BC] Stat 07/16/20 17:00 Patient Status [ADT] Routine - Assessment/Plan Last 24 Hours: My Active Orders 07/16/20 15:13 EKG Documentation Completion [RC] STAT Sodium Chloride 0.9% [Saline Flush] 10 ml FLUSH ASDIRECTED PRN Blood Culture x2 Reflex Set [OM.PC] Stat Saline Lock Insert [OM.PC] Stat 07/16/20 15:22 CLOSTRIDIUM DIFFICILE TOX RFLX [MREF] Stat STOOL CULTURE [MREF] Stat 07/16/20 15:23 Isolation [COMM] Stat 07/16/20 16:10 CULTURE BLOOD [BC] Stat 07/16/20 16:24 CULTURE BLOOD [BC] Stat 07/16/20 17:00 Patient Status [ADT] Routine Assessment:: 1)Diarrhea, R/O C Diff 2)Acute Kidney Injury 3)Elevated Lactic Acid
--- NOTE | 2020-07-16 16:06 | CR ---
[id number] RAD/RAD Chest PA or AP 1V EXAM: SINGLE VIEW CHEST. INDICATION: WEAKNESS COMPARISON: CORRELATION IS MADE WITH JUNE 06, 2020 FINDINGS: The lungs are clear The cardiomediastinal contour is prominent but stable IMPRESSION: NO ACUTE PROCESS Ricardo Sampson MD 07/16/20 [id number] Thank you for allowing us to participate in the care of your patient.
[2020-07-16 16:37] LABS: PTT,PARTIAL THROMBOPLSTIN TIME 22.5 SEC (25.6-32.8)
[2020-07-16 16:50] LABS: ANION GAP 18.8 mmol/L (5-15); CHLORIDE,CL 95 mmol/L (98-107); SODIUM,NA 132 mmol/L (136-145)
[2020-07-16] MEDS ORDERED: Lactated Ringers 1,000 ML IV SCH ×4 (17:30→20:00)
[2020-07-16] MEDS ORDERED: Glucagon,Human Recombinant 1 MG Vial IM PRN (17:34)
[2020-07-16] MEDS ORDERED: 50% Dextrose in Water 50 ML Syringe IV PRN (17:34)
[2020-07-16] MEDS ORDERED: Acetaminophen 325 MG Tab PO PRN (17:59)
[2020-07-16] MEDS ORDERED: Melatonin 3 MG Tab PO PRN (17:59)
--- NOTE | 2020-07-16 18:09 | PCM.HP.2 ---
H&P History of Present Illness - General Date of Service: 07/16/20 Admit Problem/Dx: Admission Diagnosis/Problem Admission Diagnosis/Problem Diarrhea Source of Information: Patient History Limitations: Reports: No Limitations - History of Present Illness Initial Comments - Free Text/Narative: Mrs. Gu is an 84 yo female with PMH of recurrent UTI (most recently in May), chronic back pain, type 2 DM, hypertension, GERD, hyperlipidemia, anxiety, a-fib, and OA who presented to the ER for evaluation of diarrhea x 2 days. States she is having 5-6 stools/day. Stools are dark and watery. No visualized bright red blood. Has had mild generalized abdominal pain as well. H as had some nausea and vomiting but less emesis than diarrhea. No fever or chills. She denies any known ill contacts. No different food intake than usual or consumption of undercooked food. She has been trying to drink plenty of fluids but has not been eating very well. She has been feeling somewhat dehydrated/lightheaded. She has not fallen. She has become increasingly weak, which is what prompted her son to bring her to the ER today. She was on antibiotics in May for her UTI. - Related Data Allergies/Adverse Reactions: Allergies Allergy/AdvReac Type Severity Reaction Status Date / Time atorvastatin [From Lipitor] AdvReac Unknown intolerance Verified 07/16/20 19:06 Home Medications: Home Meds Lisinopril 10 mg PO DAILY 03/03/15 [History] Acetaminophen [Tylenol] 650 mg PO Q4H PRN 04/19/19 [History] Melatonin 3 mg PO BEDTIME PRN 04/19/19 [History] L. Acidophilus/L.bulgaricus [Lactobacillus Tablet] 1 tab PO BIDAC 04/14/20 [History] glipiZIDE [Glucotrol] 10 mg PO BID@0700,1700 04/14/20 [History] Cholecalciferol (Vitamin D3) [Vitamin D3] 1,000 units PO DAILY 06/01/20 [History] Metoclopramide [Reglan] 5 mg PO DAILY PRN 06/01/20 [History] Multivitamin [Multi-Vitamin Daily] 1 tab PO DAILY 06/01/20 [History] Omeprazole 20 mg PO DAILY PRN 06/01/20 [History] Aspirin [Aspirin EC] 81 mg PO DAILY 06/02/20 [History] Insulin Glarg,Human.Rec.Analog [Lantus Solostar] 35 units SQ DAILY 07/16/20 [History] Metoprolol Succinate [Toprol XL 100mg] 100 mg PO DAILY 07/16/20 [History] Past Medical History HEENT History: Reports: Other (See Below) Other HEENT History: hearing loss, wears glasses Cardiovascular History: Reports: Afib, High Cholesterol, Hypertension Respiratory History: Reports: None Other Gastrointestinal History: malignant neoplasm of colon, Genitourinary History: Reports: Other (See Below) Other Genitourinary History: mixed incontinence urge and stress. ecoli UTI Musculoskeletal History: Reports: Osteoarthritis, Other (See Below) Other Musculoskeletal History: trochanteric bursitis, spinal stenosis Neurological History: Reports: None Psychiatric History: Reports: Anxiety Endocrine/Metabolic History: Reports: Diabetes, Type II, Other (See Below) Other Endocrine/Metabolic History: Hyponatremia, lactic acidosis Hematologic History: Reports: None Oncologic (Cancer) History: Reports: Colon - Infectious Disease History Infectious Disease History: Reports: Chicken Pox, Meningitis, Mumps, Rubella - Past Surgical History GI Surgical History: Reports: Appendectomy, Cholecystectomy, Colon, Colonoscopy Other GI Surgeries/Procedures: colon resection 1999, Social & Family History - Family History Neurological: Reports: CVA - Tobacco Use Tobacco Use Status *Q: Never Tobacco User - Caffeine Use Caffeine Use: Reports: Coffee, Tea - Alcohol Use Alcohol Use History: No Alcohol Use in Last Twelve Months: No - Recreational Drug Use Recreational Drug Use: No - Living Situation & Occupation Living situation: Reports: , with Family (her son) Occupation: Retired (teacher) H&P Review of Systems - Review of Systems: Review Of Systems: See Below General: Reports: No Symptoms HEENT: Reports: No Symptoms Pulmonary: Reports: No Symptoms Cardiovascular: Reports: No Symptoms Gastrointestinal: Reports: Abdominal Pain, Black Stool, Diarrhea, Nausea, Vomiting Genitourinary: Reports: No Symptoms Musculoskeletal: Reports: No Symptoms Skin: Reports: No Symptoms Psychiatric: Reports: No Symptoms Neurological: Reports: No Symptoms Exam - Exam Exam: See Below - Vital Signs Vital Signs: Last Vital Signs Temp 36.4 C 07/16/20 17:36 Pulse 70 07/16/20 17:36 Resp 20 07/16/20 17:36 BP 144/72 H 07/16/20 17:36 Pulse Ox 96 07/16/20 17:36 Weight: 79.651 kg - Exam General: Alert, Oriented, Cooperative HEENT: Conjunctiva Clear, Mucosa Moist & [place], Posterior Pharynx Clear, Pupils Equal, Pupils Reactive, TMs Clear Neck: Supple, Trachea Midline. No: Lymphadenopathy, Thyromegaly Lungs: Clear to Auscultation, Normal Respiratory Effort Cardiovascular: Regular Rate, Regular Rhythm, Normal S1, Normal S2 GI/Abdominal Exam: Normal Bowel Sounds, Soft, Non-Tender, No Organomegaly, No Distention, No Mass Extremities: Normal Inspection, Non-Tender, No Pedal Edema, Normal Capillary Refill Peripheral Pulses: 2+: Radial (L), Radial (R) Skin: Warm, Dry, Intact Neuro Extensive - Mental Status: Alert, Oriented x3, Normal Cognition - Patient Data Lab Results Last 24 hrs: Laboratory Results - last 24 hr 07/16/20 07/16/20 07/16/20 Range/Units 15:30 15:51 16:10 WBC 9.6 (4.0-10.0) x10^3/uL RBC 4.78 (4.00-5.50) x10^6/uL Hgb 14.3 (12.0-16.0) g/dL Hct 42.2 (33.0-47.0) % MCV 88.3 (78.0-93.0) fL MCH 29.9 (26.0-32.0) pg MCHC 33.9 (32.0-36.0) g/dL RDW Coeff of [place]anka 13.8 (10.0-15.0) % Plt Count 333 (130-400) x10^3/uL Neut % (Auto) 87.3 H (50.0-80.0) % Lymph % (Auto) 9.3 L (25.0-50.0) % Norman % (Auto) 3.1 (2.0-11.0) % Eos % (Auto) 0.1 (0.0-4.0) % Baso % (Auto) 0.2 (0.2-1.2) % PT (9.9-12.5) SEC INR (2.0-3.5) APTT (25.6-32.8) SEC Sodium (136-145) mmol/L Potassium (3.5-5.1) mmol/L Chloride (98-107) mmol/L Carbon Dioxide (21-32) mmol/L Anion Gap (5-15) mmol/L BUN (7-18) mg/dL Creatinine (0.55-1.02) mg/dL Est Cr Clr Drug Dosing Estimated GFR (MDRD) Glucose (74-106) mg/dL Lactic Acid (0.4-2.0) mmol/L Calcium (8.5-10.1) mg/dL Corrected Calcium (8.5-10.1) mg/dL Magnesium (1.8-2.4) mg/dL Total Bilirubin (0.2-1.0) mg/dL AST (15-37) U/L ALT (14-59) U/L Alkaline Phosphatase (46-116) U/L Troponin I (<=0.056) ng/mL C-Reactive Protein (<=0.9) mg/dL Total Protein (6.4-8.2) g/dL Albumin (3.4-5.0) g/dL Globulin Albumin/Globulin Ratio Amylase (25-115) U/L Lipase (73-393) U/L TSH, Ultra Sensitive (0.358-3.74) uIU/mL Urine Color Yellow (YELLOW) Urine Appearance Slightly cloudy H (CLEAR) Urine pH 5.5 (5.0-8.0) Ur Specific [place] 1.025 Urine Protein 30 H (NEGATIVE) mg/dL Urine Glucose (UA) 500 H (NEGATIVE) mg/dL Urine Ketones 40 H (NEGATIVE) mg/dL Urine Occult Blood Trace-intact H (NEGATIVE) Urine Nitrite Negative (NEGATIVE) Urine Bilirubin Negative (NEGATIVE) Urine Urobilinogen 0.2 (0.2) EU/dL Ur Leukocyte Esterase Negative (NEGATIVE) U Hyaline Cast (Auto) Few Urine RBC 5-10 H (NOT SEEN) /HPF Urine WBC 0-5 (NOT SEEN) /HPF Ur Squamous Epith Cells Rare (NEGATIVE) /HPF Amorphous Sediment Occasional Urine Bacteria Rare (NEGATIVE) /HPF Urine Mucus Occasional H (NEGATIVE) /LPF SARS CoV-2 RNA Rapid GEOFF Negative (NEGATIVE) 07/16/20 07/16/20 07/16/20 Range/Units 16:10 16:10 16:10 WBC (4.0-10.0) x10^3/uL RBC (4.00-5.50) x10^6/uL Hgb (12.0-16.0) g/dL Hct (33.0-47.0) % MCV (78.0-93.0) fL MCH (26.0-32.0) pg MCHC (32.0-36.0) g/dL RDW Coeff of [place]anka (10.0-15.0) % Plt Count (130-400) x10^3/uL Neut % (Auto) (50.0-80.0) % Lymph % (Auto) (25.0-50.0) % Norman % (Auto) (2.0-11.0) % Eos % (Auto) (0.0-4.0) % Baso % (Auto) (0.2-1.2) % PT 11.1 (9.9-12.5) SEC INR 1.0 L (2.0-3.5) APTT 22.5 L (25.6-32.8) SEC Sodium 132 L (136-145) mmol/L Potassium 4.8 (3.5-5.1) mmol/L Chloride 95 L (98-107) mmol/L Carbon Dioxide 23 (21-32) mmol/L Anion Gap 18.8 H (5-15) mmol/L BUN 14 (7-18) mg/dL Creatinine 1.5 H (0.55-1.02) mg/dL Est Cr Clr Drug Dosing TNP Estimated GFR (MDRD) 33 Glucose 452 H* (74-106) mg/dL Lactic Acid 5.6 H* (0.4-2.0) mmol/L Calcium 9.7 (8.5-10.1) mg/dL Corrected Calcium 10.42 H (8.5-10.1) mg/dL Magnesium 2.0 (1.8-2.4) mg/dL Total Bilirubin 0.5 (0.2-1.0) mg/dL AST 16 (15-37) U/L ALT 27 (14-59) U/L Alkaline Phosphatase 109 (46-116) U/L Troponin I < 0.017 (<=0.056) ng/mL C-Reactive Protein 1.9 H (<=0.9) mg/dL Total Protein 7.1 (6.4-8.2) g/dL Albumin 3.1 L (3.4-5.0) g/dL Globulin 4.0 Albumin/Globulin Ratio 0.78 Amylase 32 (25-115) U/L Lipase 115 (73-393) U/L TSH, Ultra Sensitive 2.577 (0.358-3.74) uIU/mL Urine Color (YELLOW) Urine Appearance (CLEAR) Urine pH (5.0-8.0) Ur Specific [place] Urine Protein (NEGATIVE) mg/dL Urine Glucose (UA) (NEGATIVE) mg/dL Urine Ketones (NEGATIVE) mg/dL Urine Occult Blood (NEGATIVE) Urine Nitrite (NEGATIVE) Urine Bilirubin (NEGATIVE) Urine Urobilinogen (0.2) EU/dL Ur Leukocyte Esterase (NEGATIVE) U Hyaline Cast (Auto) Urine RBC (NOT SEEN) /HPF Urine WBC (NOT SEEN) /HPF Ur Squamous Epith Cells (NEGATIVE) /HPF Amorphous Sediment Urine Bacteria (NEGATIVE) /HPF Urine Mucus (NEGATIVE) /LPF SARS CoV-2 RNA Rapid GEOFF (NEGATIVE) Result Diagrams: 07/16/20 16:10 07/16/20 16:10 Chris Results Last 24 hrs: Microbiology 07/16/20 16:24 Anaerobic Blood Culture - Final Blood - Venous - Lab Draw Sepsis Event Note - Focused Exam Vital Signs: Vital Signs Temp Pulse Resp BP Pulse Ox 07/16/20 17:36 36.4 C 70 20 144/72 H 96 *Q Meaningful Use (ADM) - VTE *Q VTE Anticoagulation Contraindications: Medical/Procedure Contrai - Problem List (1) Diarrhea SNOMED Code(s): 83827847 ICD Code: R19.7 - DIARRHEA, UNSPECIFIED Status: Acute Current Visit: Yes (2) Acute kidney injury SNOMED Code(s): 91546258, 79424035 ICD Code: N17.9 - ACUTE KIDNEY FAILURE, UNSPECIFIED Status: Acute Current Visit: Yes (3) Lactic acidosis SNOMED Code(s): 56456394 ICD Code: E87.2 - ACIDOSIS Status: Acute Current Visit: No (4) Dehydration SNOMED Code(s): 41956608 ICD Code: E86.0 - DEHYDRATION Status: Acute Current Visit: Yes (5) Diabetes SNOMED Code(s): 59360376 ICD Code: E11.9 - TYPE 2 DIABETES MELLITUS WITHOUT COMPLICATIONS Status: Chronic Current Visit: Yes Qualifiers: Diabetes mellitus type: type 2 Diabetes mellitus care home insulin use: with terminal supervisor use Diabetes mellitus complication status: without complication Qualified Code(s): E11.9 - Type 2 diabetes mellitus without complications; Z79.4 - long-term (current) use of insulin (6) Hypertension SNOMED Code(s): 68159292 ICD Code: I10 - ESSENTIAL (PRIMARY) HYPERTENSION Status: Chronic Priority: Low Current Visit: No Qualifiers: Hypertension type: unspecified Qualified Code(s): I10 - Essential (primary) hypertension (7) Atrial fibrillation SNOMED Code(s): 46145269 ICD Code: I48.91 - UNSPECIFIED ATRIAL FIBRILLATION Status: Chronic C urrent Visit: Yes Qualifiers: Atrial fibrillation type: paroxysmal Qualified Code(s): I48.0 - Paroxysmal atrial fibrillation (8) GERD (gastroesophageal reflux disease) SNOMED Code(s): 511323019 ICD Code: K21.9 - GASTRO-ESOPHAGEAL REFLUX DISEASE WITHOUT ESOPHAGITIS Status: Chronic Priority: Medium Current Visit: No Qualifiers: Esophagitis presence: without esophagitis Qualified Code(s): K21.9 - Gastro-esophageal reflux disease without esophagitis (9) Osteoarthritis SNOMED Code(s): 798495463 ICD Code: M19.90 - UNSPECIFIED OSTEOARTHRITIS, UNSPECIFIED SITE Status: Chronic Current Visit: Yes Qualifiers: Osteoarthritis location: multiple joints Osteoarthritis type: primary Qualified Code(s): M89.49 - Other hypertrophic osteoarthropathy, multiple sites Problem List Initiated/Reviewed/Updated: Yes Orders Last 24hrs: Active Orders 24 hr Category Date Time Status Patient Status [ADT] Routine ADT 07/16/20 17:00 Active Blood Glucose Check, Bedside [RC] QIDACANDBED Care 07/16/20 17:34 Active EKG Documentation Completion [RC] STAT Care 07/16/20 15:13 Active Fecal Occult Bld Diag Imm [RC] ASDIRECTED Care 07/16/20 17:33 Active Notify Provider Vital Signs [RC] ASDIRECTED Care 07/16/20 17:32 Active Oxygen Therapy [RC] PRN Care 07/16/20 17:32 Active Up With Assistance [RC] ASDIRECTED Care 07/16/20 17:32 Active VTE/DVT Education [RC] PER UNIT ROUTINE Care 07/16/20 17:32 Active Vital Signs [RC] Q4H Care 07/16/20 17:32 Active Clear Liquid Diet [DIET] Diet 07/16/20 Dinner Active BASIC METABOLIC PANEL,BMP [CHEM] Routine Lab 07/17/20 05:11 Ordered C-REACTIVE PROTEIN [CHEM] Routine Lab 07/17/20 05:11 Ordered CBC WITH AUTO DIFF [HEME] Routine Lab 07/17/20 05:11 Ordered CLOSTRIDIUM DIFFICILE TOX RFLX [MREF] Stat Lab 07/16/20 15:22 Ordered CULTURE BLOOD [BC] Stat Lab 07/16/20 16:10 Received CULTURE BLOOD [BC] Stat Lab 07/16/20 16:24 Results LACTIC ACID [CHEM] Routine Lab 07/16/20 19:00 Ordered LACTIC ACID [CHEM] Routine Lab 07/17/20 05:11 Ordered STOOL CULTURE [MREF] Stat Lab 07/16/20 15:22 Ordered Acetaminophen [TylenoL] Med 07/16/20 17:59 Ordered 650 mg PO Q4H PRN Aspirin [Halfprin] Med 07/17/20 08:00 Ordered 81 mg PO DAILY Dextrose 50% in Water Med 07/16/20 17:34 Active 50 ml IV ASDIRECTED PRN Glucagon,Human Recombinant [GlucaGen] Med 07/16/20 17:34 Active 1 mg IM ASDIRECTED PRN Insulin Glarg,Human.Rec.Analog [Lantus Solostar] Med 07/17/20 08:00 Ordered 35 units SQ DAILY Insulin Lispro [HumaLOG] Med 07/16/20 18:00 Active See Protocol SUBCUT TIDMEALS Lactated Ringers [Ringers, Lactated] 1,000 ml Med 07/16/20 17:30 Active IV ASDIRECTED Lactated Ringers [Ringers, Lactated] 1,000 ml Med 07/16/20 18:30 Active IV ASDIRECTED Melatonin Med 07/16/20 17:59 Ordered 3 mg PO BEDTIME PRN Metoprolol Succinate [Toprol XL 100mg] Med 07/17/20 08:00 Ordered 100 mg PO DAILY Omeprazole Med 07/16/20 18:00 Ordered 20 mg PO DAILY Sodium Chloride 0.9% [Saline Flush] Med 07/16/20 15:13 Active 10 ml FLUSH ASDIRECTED PRN glipiZIDE [Glucotrol] Med 07/17/20 07:00 Ordered 10 mg PO BID@0700,1700 lisinopriL [Prinivil] Med 07/17/20 08:00 Ordered 10 mg PO DAILY Anticoagulation Contraindications VTE [AST] Per Unit Ot 07/16/20 17:32 Ordered Routine Blood Culture x2 Reflex Set [OM.PC] Stat Ot 07/16/20 15:13 Ordered Isolation [COMM] Stat Ot 07/16/20 15:23 Ordered Saline Lock Insert [OM.PC] Stat Ot 07/16/20 15:13 Ordered Resuscitation Status Routine Resus Stat 07/16/20 17:32 Ordered Medication Orders Acetaminophen (Tylenol) 650 mg PO Q4H PRN PRN Reason: Pain Aspirin (Halfprin) 81 mg PO DAILY ON LICENSE OF [facility] Dextrose/Water (Dextrose 50% In Water) 50 ml IV ASDIRECTED PRN PRN Reason: Hypoglycemia Glipizide (Glucotrol) 10 mg PO BID@0700,1700 ON LICENSE OF [facility] Glucagon (Glucagen) 1 mg IM ASDIRECTED PRN PRN Reason: Hypoglycemia Lactated Ringer's (Ringers, Lactated) 1,000 mls @ 500 mls/hr IV ASDIRECTED ON LICENSE OF [facility] Stop: 07/16/20 18:30 Lactated Ringer's (Ringers, Lactated) 1,000 mls @ 100 mls/hr IV ASDIRECTED ON LICENSE OF [facility] Insulin Human Lispro (Humalog) 0 unit SUBCUT TIDMEALS ON LICENSE OF [facility]; Protocol Lisinopril (Prinivil) 10 mg PO DAILY ON LICENSE OF [facility] Melatonin (Melatonin) 3 mg PO BEDTIME PRN PRN Reason: Insomnia Non-Formulary Medication (Insulin Glarg,Human.Rec.Analog [Lantus Solostar]) 35 units SQ DAILY ON LICENSE OF [facility] Non-Formulary Medication (Metoprolol Succinate [Toprol Xl 100mg]) 100 mg PO DAILY ON LICENSE OF [facility] Omeprazole (Omeprazole) 20 mg PO DAILY ON LICENSE OF [facility] Sodium Chloride (Saline Flush) 10 ml FLUSH ASDIRECTED PRN PRN Reason: Keep Vein Open Assessment/Plan Comment:: 84 yo female admitted with DAVID and dehydration secondary to diarrhea. #1 Diarrhea - Likely viral illness given associated n/v. However, since illness is severe enough to warrant hospitalization, reasonable to do stool culture. C. difficile is also considered given antibiotics within the past 3 months. Given report of dark stools, diverticulitis vs ischemic colitis would also be considered but symptoms are not really consistent with that. COVID negative on admission. - Stool for occult blood ordered. If this is positive, she will need a CT scan. Hgb is stable on admission; will recheck tomorrow am, sooner if any vital sign instability. - Blood cultures pending. - Stool cultures and c. difficile testing also ordered. No antibiotics until these results are available given higher likelihood for viral illness and patient not meeting sepsis criteria. - Fluids as below. - Hold off on Imodium until c. difficile test available as well. #2 DAVID #3 Lactic acidosis #4 Dehydration - #2 and #3 likely secondary to #4 which is secondary to #1. - Will give a 500 cc bolus over 1 hour, then IV fluids at 100 cc/hr. - Will recheck lactic acid at 7 pm and adjust fluids based on those results. - Baseline creatinine is 0.9 (05/2020). 1.5 on admission. Will recheck tomorrow am. - Patient will be on clear liquids until stool occult blood is completed. #5 DM - Glucose elevated on admission, likely related to current illness as well as DM not controlled at baseline. - POC glucose QID. - Low dose correction scale. - Continue lantus and glipizide. #6 Hypertension #7 A-fib - BP ok on admission. - Creatinine increase likely related to dehydration; therefore, will continue lisinopril as well as metoprolol. - Patient has refused warfarin in the past. #8 GERD - Will schedule omeprazole 20 mg daily rather than PRN given report of black stools. - If Hemoccult negative, will d/c omeprazole until c. difficile result is available. #9 OA - Continue PRN tylenol. Patient is admitted to acute as it is anticipated she will require at least 2 midnights of hospitalization for the above issues. PT and OT evaluations ordered to determine potential need for swing bed after her acute stay. Will hold off on pharmacologic VTE prophylaxis until hemoccult obtained. Code status is full - discussed on admission.
[2020-07-16] MEDS ORDERED: Insulin Glarg,Human.Rec.Analog 100 Unit/ML SUBCUT SCH (20:00)
[2020-07-16] MEDS: Insulin Lispro 100 Units/ML 3 ML Vial SUBCUT SCH (20:06)
[2020-07-16] MEDS: Lactated Ringers 1,000 ML IV SCH (22:27)
[2020-07-16] MEDS: Sodium Chloride 0.9% 10 ML Syringe FLUSH PRN (22:28)
[2020-07-17] MEDS ORDERED: Ondansetron 4 MG/2 ML SDV ONE (05:11)
[2020-07-17] MEDS ORDERED: Ondansetron 4 MG/2 ML SDV IVPUSH PRN (05:11)
[2020-07-17] MEDS: Lactated Ringers 1,000 ML IV SCH (05:18)
[2020-07-17] MEDS: Omeprazole 20 MG Cap.CR PO SCH (07:22)
[2020-07-17 07:23] LABS: ANION GAP 11.9 mmol/L (5-15)
[2020-07-17] MEDS ORDERED: INSULIN GLARG HUMAN REC ANALOG SQ SCH (08:00)
[2020-07-17] MEDS ORDERED: Lactated Ringers 1,000 ML IV SCH (08:00)
[2020-07-17] MEDS ORDERED: [UNRECOGNIZED DRUG - OTHER] SQ SCH (08:00)
[2020-07-17] MEDS ORDERED: Aspirin 81 MG Tab.EC PO SCH (08:00)
[2020-07-17] MEDS ORDERED: 50% Dextrose in Water 50 ML Syringe IV PRN (08:29)
[2020-07-17] MEDS ORDERED: Glucagon,Human Recombinant 1 MG Vial IM PRN (08:29)
[2020-07-17] MEDS: Sodium Chloride 0.9% 10 ML Syringe FLUSH PRN ×3 (08:56→19:59)
[2020-07-17] MEDS: Pantoprazole 40 MG Vial IVPUSH SCH ×2 (08:56→20:00)
[2020-07-17] MEDS: Miconazole 2% Top Powder 45 GM Container TOP SCH ×2 (08:57→19:59)
[2020-07-17] MEDS: Lisinopril 10 MG Tab PO SCH (09:49)
[2020-07-17] MEDS: Metoprolol Succinate 50 MG Tab.ER PO SCH (09:49)
--- NOTE | 2020-07-17 09:49 | CR ---
[id number] RAD/RAD Abd Flat and Upright 2V EXAM: RAD Abd Flat and Upright 2V INDICATION: ABDOMINAL PAIN. COMPARISON: None. DISCUSSION: Multiple air distended loops of small and large bowel small bowel measures up to 3.8 cm. No free air is identified. Postsurgical changes following ventral hernia repair. Degenerative changes seen throughout the osseous structures. IMPRESSION: Multiple air-filled loops of small and large bowel measuring up to 3.8 cm. This may represent ileus though distal obstruction is not excluded. If continued concern, CT of the abdomen and pelvis could be considered for further evaluation. Carlos Voss DO 07/17/20 0948 Thank you for allowing us to participate in the care of your patient.
[2020-07-17] MEDS: Insulin Lispro 100 Units/ML 3 ML Vial SUBCUT SCH ×4 (10:32→17:27)
[2020-07-17] MEDS: Metoclopramide 10 MG/2 ML SDV IVPUSH PRN (11:52)
--- NOTE | 2020-07-17 16:51 | PN ---
Progress Note for JUDAH WRIGHT Date: 07/17/2020 Room #: VM.203 SUBJECTIVE: An 84-year-old admitted for diarrhea for the past couple of days. She has not had any diarrhea since admission, but she has been vomiting twice this morning. She was unable to keep pills down. She did eat some dinner last evening. She had some stomach pain, but it is better now. She otherwise has not had any burning with urination. Her UA was negative for infection. She has not had any fever or chills. No cough, shortness of breath, or chest pain. The patient has had multiple previous admissions for viral gastroenteritis-type illnesses. She has also had UTIs. She was treated last month with Rocephin and finished her course with Macrobid. The patient also has a known history of uncontrolled diabetes. She has had previous admissions for pancreatitis. Lipase was normal this time. OBJECTIVE: Vital Signs: Her temperature is 97.6, pulse 90, blood pressure 150/87, respiratory rate 15, and O2 of 90 on room air. General: She is in no acute distress. Heart: Regularly irregular. Lungs: Lung sounds are clear to auscultation bilaterally without crackles or wheezes. Abdomen: Positive bowel sounds. Soft, nondistended. Mild tenderness, but no rebound or guarding. Extremities: Warm and dry. No edema. Mental Status: She is alert. She is orientated x3. She answers questions appropriately. LABORATORY DATA: White count normal at 6.1, hemoglobin 13.7, platelets 346. Sodium up to 134, potassium 3.9, chloride 97, bicarb 29, BUN 13, creatinine 1, glucose 209. Lactic down to 1.3, it was 5.1 on admission. Calcium 9.9, CRP 2, albumin 3.1 yesterday. ASSESSMENT: 1. Nausea, vomiting, and diarrhea. Index of suspicion for Clostridium difficile is now low given no stools since she has arrived, but we are awaiting her results. Given her ongoing vomiting, we will get some abdominal x-rays today. We will have her n.p.o. for now. 2. Lactic acidosis, probably related to acute illness. The patient was not in diabetic ketoacidosis. 3. Uncontrolled diabetes with severe hyperglycemia. We will add her on meal insulin instead of the sliding scale. We will hold meal insulin if blood sugars under 200 and not eating. 4. Moderate malnutrition. 5. Recurrent urinary tract infection. She does not have a urinary tract infection currently. 6. Essential hypertension. Blood pressures are elevated. We will stop fluids after this bag. She is on her home medications. 7. Atrial fibrillation. She is rate controlled. She refuses Coumadin. 8. Remote history of colon cancer. 9. Mild hyponatremia, improved. 10.Fatty liver. PLAN: The patient will continue on acute cares. Discussed code status again with her. She has not been CPR on her recent admission, so it is unclear to me why she wants aggressive measures now. I will call her children as well and update them on the plan of care. We will get the abdominal x-ray. We will increase IV Zofran to every 4 hours as needed. I will add IV Reglan. We will make her n.p.o. We will await the stool culture. We will get her up and working with therapies. Hemoglobin remained stable, so I will start her on some Lovenox. She is already on a PPI, unfortunately did throw it up, so I will switch her Protonix over to 40 mg as she did report some heartburn symptoms. MKA: 07/17/2020 16:29:05 MODL: 07/17/2020 16:44:58 /[id number]
[2020-07-17] MEDS: Insulin Glarg,Human.Rec.Analog 100 Unit/ML SUBCUT SCH (19:58)
[2020-07-18] MEDS: Omeprazole 20 MG Cap.CR PO SCH (06:00)
[2020-07-18] MEDS: Metoclopramide 10 MG/2 ML SDV IVPUSH PRN (07:21)
[2020-07-18] MEDS: Sodium Chloride 0.9% 10 ML Syringe FLUSH PRN ×8 (07:21→23:30)
[2020-07-18] MEDS: Metoprolol Succinate 50 MG Tab.ER PO SCH (07:25)
[2020-07-18] MEDS: Insulin Lispro 100 Units/ML 3 ML Vial SUBCUT SCH (07:25)
[2020-07-18] MEDS: Lisinopril 10 MG Tab PO SCH (07:25)
[2020-07-18] MEDS: Miconazole 2% Top Powder 45 GM Container TOP SCH ×2 (07:26→20:46)
[2020-07-18] MEDS: Pantoprazole 40 MG Vial IVPUSH SCH ×2 (07:33→20:36)
[2020-07-18 07:36] LABS: ANION GAP 13.8 mmol/L (5-15)
[2020-07-18] MEDS ORDERED: Iopamidol 612 MG/ML 100 ML Bottle IVPUSH ONE (08:57)
[2020-07-18] MEDS: Lactated Ringers 1,000 ML IV SCH ×2 (09:11→20:06)
[2020-07-18] MEDS: Metoprolol Tartrate 5 MG/5 ML SDV IVPUSH SCH ×3 (11:02→23:29)
[2020-07-18] MEDS: Ondansetron 4 MG/2 ML SDV IVPUSH PRN ×2 (11:03→18:18)
--- NOTE | 2020-07-18 11:40 | CT ---
[id number] CT/CT Abdomen WWO IV Exam: CT Abdomen WWO IV Clinical Data: VOMITING COMPARISON: CORRELATION IS MADE WITH APRIL 13, 2020 FINDINGS: There is a small bowel obstruction pattern There is no free fluid or free air There is no pneumatosis intestinalis There is no portal venous air The liver and spleen, kidneys and adrenals, pancreas and aorta are unremarkable There are surgical changes The gallbladder has been removed The pelvis shows no mass or adenopathy IMPRESSION: SMALL BOWEL OBSTRUCTION Ricardo Sampson MD 07/18/20 4303 Thank you for allowing us to participate in the care of your patient.
--- NOTE | 2020-07-18 15:01 | PN ---
Progress Note for JUDAH WRIGHT Date: 07/18/2020 Room #: VM.203 SUBJECTIVE: This is hospital day #3 on an 84-year-old initially admitted with diarrhea, concern for C. diff due to recent antibiotic use, but no stools since admission, but now with abdominal pain and vomiting. She had some vomiting yesterday. X-ray was concerning for a small bowel obstruction, but her abdomen was soft and she was wanting to eat some liquids by supper time. She did not keep anything down. Today, her abdomen is more firm. She admits that she is having pain. She is getting both Zofran and Reglan. She has been afebrile. She is not having any shortness of breath. Minimal cough. X-ray on admission looked okay. She threw up her pills yesterday. Blood pressure is running higher. She does have atrial fibrillation, but rates have been controlled. OBJECTIVE: Vital Signs: Temperature 98, pulse 98, blood pressure 145/78, respiratory rate 15, and O2 of 93% on room air. General: She is in no acute distress. She is resting in bed. Heart: Irregularly irregular. Lungs: Lung sounds are clear to auscultation bilaterally without crackles or wheezes. Abdomen: Just mildly distended with hyperactive bowel sounds throughout. It is firm and tender throughout, but no guarding, no rebound. Mental Status: She is alert. She is orientated x3. LABORATORY DATA: Laboratory work did show her to have white count normal 5.3, hemoglobin down to 11.8, possibly hemodilution. Sodium 134, potassium 3.8, chloride 99, bicarb 25, BUN 9, creatinine 0.9, glucose 152, albumin 2.7. ASSESSMENT AND PLAN: 1. Small-bowel obstruction, We will get a CT today. I initially wanted to place an NG; however, patient refused. Pending the CT we will decide on NG placement. The patient is not too keen on being transferred for surgery, but she would consider it. 2. Uncontrolled diabetes with hyperglycemia. Blood sugars have actually been under good control since she has not been eating. I actually had to decrease her Lantus last night. I also stopped her meal insulin due to n.p.o. status. 3. Atrial fibrillation, rate controlled. She refuses anticoagulation. I am going to put her on IV metoprolol due to her GI status. 4. Essential hypertension, uncontrolled due to unable to take p.o. medications. Currently, IV metoprolol ordered. We will see if she can take her lisinopril later today. 5. Moderate malnutrition. 6. Remote history of colon cancer. She has had previous colon surgery. She has not had any recent colonoscopy. She is not interested in pursuing at this point. 7. Fatty liver. 8. Hyponatremia, improving. PLAN: The patient will continue acute cares. We will get the CT scan. We will restart IV fluids because she will be n.p.o. She is on an IV PPI to help with any heartburn symptoms. We will repeat lab work tomorrow. I do not think she is having any acute GI bleeding. Discussed with her that likely cause of her symptoms would be adhesions from previous bowel surgery. If her condition worsens, she will require transfer to [place]. I did update her son today prior to the CT. I will try to update her daughter later today. She was appreciative of this. For DVT prophylaxis, she is on Lovenox. She will be up and working with therapies as well. MKA: 07/18/2020 14:13:31 MODL: 07/18/2020 14:53:09 /[id number]
[2020-07-18] MEDS ORDERED: LORazepam 2 MG/ML SDV IVPUSH ONE (15:32)
[2020-07-18] MEDS ORDERED: Flumazenil 0.1 MG/ML 5 ML MDV IVPUSH PRN (15:32)
[2020-07-18] MEDS: Insulin Glarg,Human.Rec.Analog 100 Unit/ML SUBCUT SCH (20:51)
[2020-07-19] MEDS: Metoprolol Tartrate 5 MG/5 ML SDV IVPUSH SCH ×4 (06:10→23:28)
[2020-07-19] MEDS: Sodium Chloride 0.9% 10 ML Syringe FLUSH PRN ×8 (06:10→23:36)
[2020-07-19] MEDS: Lactated Ringers 1,000 ML IV SCH ×2 (06:20→15:27)
[2020-07-19 08:31] LABS: CHLORIDE,CL 105 mmol/L (98-107); SODIUM,NA 139 mmol/L (136-145)
[2020-07-19 08:33] LABS: ANION GAP 11.8 mmol/L (5-15)
[2020-07-19] MEDS: Ondansetron 4 MG/2 ML SDV IVPUSH PRN (08:36)
[2020-07-19] MEDS: Lisinopril 10 MG Tab PO SCH (08:37)
[2020-07-19] MEDS: Miconazole 2% Top Powder 45 GM Container TOP SCH ×2 (08:38→20:05)
[2020-07-19] MEDS: Pantoprazole 40 MG Vial IVPUSH SCH ×2 (08:39→20:06)
--- NOTE | 2020-07-19 13:47 | PN ---
Progress Note for JUDAH WRIGHT Date: 07/19/2020 Room #: VM.203 SUBJECTIVE: Hospital day #4 for an 84-year-old female patient who was initially admitted with diarrhea, possible C. diff due to recent antibiotic use, but no stool since admission, but now started complaining of abdominal pain and vomiting. The patient did have a CT scan of the abdomen which showed a small bowel obstruction. The patient's abdomen is still firm and bowel sounds have been hyperactive. The patient has not complained of any headache, dizziness, or lightheadedness. The patient did have a very large watery BM last evening. The patient again had a large watery BM this morning. The patient is asking for something to drink. The patient has not had any shortness of breath or cough. No chest pain or palpitations. She states that her belly feels generally achy. Blood pressures have been acceptable. The patient continues on Zofran and Reglan. The patient has been afebrile. OBJECTIVE: Vital Signs: Temperature 97.7, pulse 83, blood pressure 142/67, respiratory rate 18, oxygen saturation 92% on room air. General: The patient does not appear to be in any acute distress. The patient is alert. The patient is resting comfortably. Respiratory: Lungs are clear throughout without any crackles or wheezes. Cardiovascular: Irregularly irregular rhythm, regular rate. Abdomen: Slightly tender throughout and moderately firm. The patient states she is hungry and requesting something to drink. Bowel sounds are hyperactive x4. Neurological: No new focal neurological deficits. The patient is alert. The patient is cooperative. The patient is oriented x3. LABORATORY STUDIES: 1. CBC: White blood cell count 5.5, hemoglobin 10.8, hematocrit 31.9, platelets 213,000. 2. BMP: Sodium 139, potassium 3.8, chloride 105, CO2 is 29, anion gap 11.8, BUN 9, creatinine 0.8, GFR greater than 60, glucose 143, calcium 8.7. ASSESSMENT: 1. Small bowel obstruction. 2. Uncontrolled diabetes with hyperglycemia. 3. Atrial fibrillation. 4. Essential hypertension. 5. Moderate malnutrition. 6. Remote history of colon cancer. 7. Fatty liver. 8. Hyponatremia. PLAN: The patient will continue on acute cares given her current symptoms. Unable to place a nasogastric tube, however, the patient has not had any vomiting and minimal nausea. The patient is stooling. We will advance diet to clear liquids carefully. Continue with IV PPI. Repeat laboratory work tomorrow. At this point, the patient does not appear to require any transfer to a higher level of care. The patient is on Lovenox for DVT prophylaxis. Continue all other cares and therapies the same. The patient's status will be changed to swing bed tomorrow. TB: 07/19/2020 12:16:30 MODL: 07/19/2020 13:37:28 /[id number]
[2020-07-19] MEDS: Insulin Glarg,Human.Rec.Analog 100 Unit/ML SUBCUT SCH (20:03)
[2020-07-20] MEDS: Lactated Ringers 1,000 ML IV SCH (02:58)
[2020-07-20] MEDS: Sodium Chloride 0.9% 10 ML Syringe FLUSH PRN ×2 (06:24→06:34)
[2020-07-20] MEDS: Metoprolol Tartrate 5 MG/5 ML SDV IVPUSH SCH (06:25)
[2020-07-20] MEDS: Pantoprazole 40 MG Vial IVPUSH SCH (08:59)
[2020-07-20] MEDS: Metoclopramide 10 MG/2 ML SDV IVPUSH PRN (08:59)
[2020-07-20] MEDS: Miconazole 2% Top Powder 45 GM Container TOP SCH (09:02)
[2020-07-20] MEDS: Lisinopril 10 MG Tab PO SCH (09:02)
[2020-07-20 10:17] LABS: CHLORIDE,CL 100 mmol/L (98-107); SODIUM,NA 136 mmol/L (136-145)
[2020-07-20 10:19] LABS: ANION GAP 14.7 mmol/L (5-15)
--- NOTE | 2020-07-20 16:41 | DISCH ---
ADMITTING DIAGNOSES: 1. Diarrhea. 2. Acute kidney injury. 3. Lactic acidosis. 4. Dehydration. 5. Diabetes. 6. Hypertension. 7. Atrial fibrillation. 8. Gastroesophageal reflux disease. 9. Osteoarthritis. DISCHARGE DIAGNOSES: 1. Small-bowel obstruction. 2. Diarrhea. 3. Acute kidney injury. 4. Lactic acidosis. 5. Dehydration. 6. Diabetes. 7. Hypertension. 8. Atrial fibrillation. 9. Gastroesophageal reflux disease. 10.Osteoarthritis. HISTORY OF PRESENT ILLNESS: An 84-year-old female patient with a past medical history of recurrent UTI, chronic back pain, type 2 diabetes, hypertension, GERD, hyperlipidemia, anxiety, AFib, and osteoarthritis, presented to the emergency room on 07/16 for evaluation of diarrhea for 2 days. The patient had been having 5 to 6 stools per day. The stools were dark and watery. The stools were malodorous. There was no blood in stools. The patient had mild generalized pain of the abdomen. She did have nausea and vomiting at times. She did not have any fevers or chills. No ill contacts. No questionable foods. No recent travel. The patient has been trying to stay well hydrated. She was feeling somewhat lightheaded with the dehydration. No recent falls. A workup in the emergency room demonstrated hyperglycemia of 452, lactic acid of 5.1, low sodium of 132. Hematology was okay with a hemoglobin of 14.3. The patient did have an elevated CRP of 1.9. Her UA studies did not show any acute UTI. COVID-19 was negative. HOSPITAL COURSE: The patient continued to have abdominal tenderness; therefore, a CT scan of the abdomen was obtained, which showed a small bowel obstruction. Multiple attempts to place an NG was tried, however, has been unsuccessful. Over the last 2 days, the patient has been having stools and feeling much better. Her abdomen is less tender. She has had some intermittent nausea. The patient has not had any vomiting. She is tolerating clear liquids at this point. The patient is feeling very weak and tired. The patient remained hemodynamically stable and afebrile. CONSULTATIONS: Physical and Occupational Therapy as well as Case Management. DIET: Clear liquid, advancing as tolerated ACTIVITY: Per Physical and Occupational Therapy. DISCHARGE LABORATORY WORK: 1. CBC: White blood cell count 7.3, hemoglobin 12.4, hematocrit 36.6, platelet count 348,000. 2. BMP: Sodium 136, potassium 3.7, chloride 100, CO2 of 25, anion gap 14.7, BUN 6, creatinine 0.8, GFR greater than 60, glucose 181, calcium 9.0. DISCHARGE MEDICATIONS: 1. Acetaminophen 650 mg 1 tablet every 4 hours as needed. 2. Insulin glargine 35 units SQ daily at bedtime. 3. Lisinopril 20 mg 1 tablet p.o. daily. 4. Melatonin 3 mg 1 tablet p.o. daily. 5. Reglan 5 mg IV push every 4 hours as needed. 6. Metoprolol tartrate 2.5 mg IV every 6 hours as needed. 7. Desenex topically twice daily. 8. Protonix 40 mg PO every 12 hours. REVIEW OF SYSTEMS: Constitutional: Negative. Respiratory: Negative. Cardiovascular: Negative. Abdomen: Complaining of some nausea. Has been having bowel movements. Has intermittent cramping. Skin: Negative. Neurological: Negative. DISCHARGE PHYSICAL EXAMINATION: Vital Signs: Temperature 97.8, pulse 86, blood pressure 174/79, respiratory rate 18, oxygen saturation 93% on room air. Skin: Intact, warm, and dry. Respiratory: Lungs are clear to auscultation. Cardiovascular: Regular rate and rhythm, no murmur. Abdomen: Bowel sounds are hyperactive, mild tenderness throughout. Soft. Neurological: No acute neurological deficits. The patient is alert. General: The patient is alert. The patient is cooperative. The patient does not appear to be in any acute distress. ASSESSMENT: 1. Small bowel obstruction. 2. Uncontrolled diabetes with hyperglycemia. 3. Uncontrolled hypertension, improving 4. Atrial fibrillation. 5. Moderate malnutrition. 6. Remote history of colon cancer. 7. Fatty liver. 8. Hyponatremia, resolved. PLAN: The patient will be discharged from acute care today and admitted to swing bed for weakness and deconditioning and ongoing physical therapy. We will switch the patient's Protonix to p.o. Increase Lisinopril to 20 mg daily. Continue with physical and occupational therapy. The patient is a code 2. The patient does not wish to be transferred to higher level of care should the need arise. The acute admission H&P is current and up to date and may be used as the admission H&P to swing bed. TB: 07/20/2020 10:35:43 MODL: 07/20/2020 16:33:49 /[id number] MTDD
== END 2020-07-20 11:45 | disposition swing bed (61) | DRG 683 ==
LOC: VM.ED 14:59 → VM.MS 17:00
PROVIDERS: ADMIT Family Medicine; ATTEND Internal Medicine
DX: R19.7 Diarrhea, unspecified (principal); N17.9 Acute kidney failure, unspecified; K56.609 Unspecified intestinal obstruction, unspecified as to partial versus complete obstruction; E44.0 Moderate protein-calorie malnutrition; E87.1 Hypo-osmolality and hyponatremia; I48.91 Unspecified atrial fibrillation; E87.2 Acidosis; E11.65 Type 2 diabetes mellitus with hyperglycemia; I10 Essential (primary) hypertension; K76.0 Fatty (change of) liver, not elsewhere classified; M19.90 Unspecified osteoarthritis, unspecified site; E86.0 Dehydration; Z20.822 Contact with and (suspected) exposure to COVID-19; E11.9 Type 2 diabetes mellitus without complications; K21.9 Gastro-esophageal reflux disease without esophagitis; M89.49 Other hypertrophic osteoarthropathy, multiple sites; E78.5 Hyperlipidemia, unspecified; R53.1 Weakness; F41.9 Anxiety disorder, unspecified; R79.89 Other specified abnormal findings of blood chemistry; H91.90 Unspecified hearing loss, unspecified ear; H54.7 Unspecified visual loss; E78.00 Pure hypercholesterolemia, unspecified; N39.46 Mixed incontinence; M48.00 Spinal stenosis, site unspecified; Z85.038 Personal history of other malignant neoplasm of large intestine; Z87.440 Personal history of urinary (tract) infections; Z88.8 Allergy status to other drugs, medicaments and biological substances; Z79.899 Other long term (current) drug therapy; Z79.4 Long term (current) use of insulin; Z79.82 Long term (current) use of aspirin; Z90.49 Acquired absence of other specified parts of digestive tract; Z68.25 Body mass index [BMI] 25.0-25.9, adult
CPT/HCPCS: 36415; 71045; 74019; 74170; 80048; 80053; 81001; 82150; 82962; 83605; 83690; 83735; 84443; 84484; 85025; 85610; 85730; 86140; 87040; 93005; 93010; 97165-GO; 99284; 99285-25; A9270-GY; C9113; J1815-GY; J2060; J2405; J2765; J3490; J7120; Q9967; U0002

== ENCOUNTER 2020-07-20 10:43 | Inpatient (IN) | payer MEDICARE, OTHER ==
[2020-07-20] MEDS ORDERED: Omeprazole 20 MG Cap.CR PO PRN (10:56)
[2020-07-20] MEDS ORDERED: METOCLOPRAMIDE 5 MG PO PRN (10:56)
[2020-07-20] MEDS ORDERED: Acetaminophen 325 MG Tab PO PRN (10:56)
[2020-07-20] MEDS ORDERED: Melatonin 3 MG Tab PO PRN (10:56)
[2020-07-20] MEDS ORDERED: Lactated Ringers 1,000 ML IV SCH (11:00)
[2020-07-20] MEDS ORDERED: Metoprolol Tartrate 5 MG/5 ML SDV IVPUSH PRN (11:01)
[2020-07-20] MEDS: Lactobacillus Rhamnosus GG (Probiotic) Cap PO SCH ×2 (14:07→17:47)
[2020-07-20] MEDS: Ondansetron 4 MG/2 ML SDV IVPUSH PRN (17:47)
[2020-07-20] MEDS: Miconazole 2% Top Powder 45 GM Container TOP SCH (20:06)
[2020-07-21] MEDS: Lactobacillus Rhamnosus GG (Probiotic) Cap PO SCH ×2 (06:24→18:53)
[2020-07-21] MEDS: Miconazole 2% Top Powder 45 GM Container TOP SCH ×2 (09:21→19:53)
[2020-07-21] MEDS: Aspirin 81 MG Tab.EC PO SCH (09:22)
[2020-07-21] MEDS: Lisinopril 20 MG Tab PO SCH (09:22)
[2020-07-21] MEDS: Multivitamins with Iron/Calcium/Folic Acid/Minerals Tab PO SCH (09:23)
[2020-07-21] MEDS: Metoprolol Succinate 50 MG Tab.ER PO SCH (09:23)
[2020-07-21] MEDS: Cholecalciferol (Vitamin D3) 25 MCG Tab PO SCH (09:25)
[2020-07-21] MEDS: Insulin Glarg,Human.Rec.Analog 100 Unit/ML SUBCUT SCH (09:29)
[2020-07-21] MEDS: Ondansetron 4 MG/2 ML SDV IVPUSH PRN (11:48)
[2020-07-21] MEDS ORDERED: Glucagon,Human Recombinant 1 MG Vial IM PRN (16:51)
[2020-07-21] MEDS ORDERED: 50% Dextrose in Water 50 ML Syringe IV PRN (16:51)
--- NOTE | 2020-07-21 17:44 | PN ---
Progress Note for JUDAH WRIGHT Date: 07/22/2020 Room #: VM.203 SUBJECTIVE: This is an 84-year-old admitted for gastroenteritis with diarrhea, but then developed a small bowel obstruction. Yesterday, she was doing quite well in the morning and was actually placed on swing bed, but then unfortunately started having diarrhea and vomiting. This morning, she was initially sleeping, but then when she was up and alert, she felt like eating, so in fact she has eaten some soft foods. She has a little bit of abdominal pain still, but overall is feeling better. No nausea now and is passing gas. The patient's insulin had been decreased, but now it has been increased back up and blood sugars are running higher again with eating. She is back on her glipizide. She is otherwise not having any cough or shortness of breath. OBJECTIVE: Vital Signs: This morning, temperature is 97.1, pulse 107, blood pressure 168/90, respiratory rate 20, and O2 of 90 on room air. General: She is in no acute distress. Heart: Irregularly irregular without murmur. Lungs: Lung sounds are clear to auscultation bilaterally without crackles or wheezes. Abdomen: Mild distention with active bowel sounds with mild generalized tenderness. Mental Status: Alert and orientated x3. LABORATORY DATA: No lab work present today. ASSESSMENT: 1. Essential hypertension, uncontrolled. The patient is back on her Toprol and lisinopril. She is not having any symptoms. It is likely she missed some of her doses due to the poor oral intake or did not absorb them well. She actually was getting IV Lopressor on acute and that is available as a p.r.n. 2. Type 2 diabetes, uncontrolled with hyperglycemia. I will restart the meal insulin 4 units t.i.d. 3. Small bowel obstruction. We will see how the patient advances clinically. If further vomiting, we will do some x-rays. She was not able to tolerate or get the NG tube. She prefers conservative therapies. 4. Obesity and deconditioning. She will be up and working with therapies to see how long she will need to stay on swing bed before returning home. 5. Atrial fibrillation. She is rate controlled. She refuses anticoagulation. 6. Moderate malnutrition. 7. Remote history of colon cancer with no recent colonoscopies. 8. Fatty liver. 9. Hyponatremia, resolved. PLAN: The patient will continue on swing bed with therapies. We will do her lab work tomorrow. If her symptoms worsen, we will repeat her imaging. Anticipate she will need at least a few more days on swing bed until she is strong enough to return home. If her condition deteriorates, we will place her back on acute cares or transfer her down to [place]. MKA: 07/21/2020 16:57:15 MODL: 07/21/2020 17:37:46 /[id number] MTDD
[2020-07-21] MEDS: Insulin Lispro 100 Units/ML 3 ML Vial SUBCUT SCH (18:59)
[2020-07-22] MEDS: Lactobacillus Rhamnosus GG (Probiotic) Cap PO SCH ×2 (06:24→16:43)
[2020-07-22 07:07] LABS: ANION GAP 13.3 mmol/L (5-15)
[2020-07-22] MEDS: Potassium Chloride 10 MEQ Tab.ER PO SCH (08:06)
[2020-07-22] MEDS: Metoprolol Succinate 50 MG Tab.ER PO SCH (08:06)
[2020-07-22] MEDS: Miconazole 2% Top Powder 45 GM Container TOP SCH ×2 (08:06→20:55)
[2020-07-22] MEDS: Multivitamins with Iron/Calcium/Folic Acid/Minerals Tab PO SCH (08:07)
[2020-07-22] MEDS: Aspirin 81 MG Tab.EC PO SCH (08:07)
[2020-07-22] MEDS: Insulin Lispro 100 Units/ML 3 ML Vial SUBCUT SCH ×3 (08:07→17:54)
[2020-07-22] MEDS: Lisinopril 20 MG Tab PO SCH (08:07)
[2020-07-22] MEDS: Cholecalciferol (Vitamin D3) 25 MCG Tab PO SCH (08:07)
[2020-07-22] MEDS: Insulin Glarg,Human.Rec.Analog 100 Unit/ML SUBCUT SCH (08:11)
[2020-07-22] MEDS: Magnesium Oxide 400 MG Tab PO SCH (13:47)
[2020-07-23] MEDS: Lactobacillus Rhamnosus GG (Probiotic) Cap PO SCH ×2 (06:06→17:45)
[2020-07-23] MEDS: Multivitamins with Iron/Calcium/Folic Acid/Minerals Tab PO SCH (07:35)
[2020-07-23] MEDS: Lisinopril 20 MG Tab PO SCH (07:35)
[2020-07-23] MEDS: Potassium Chloride 10 MEQ Tab.ER PO SCH (07:35)
[2020-07-23] MEDS: Aspirin 81 MG Tab.EC PO SCH (07:35)
[2020-07-23] MEDS: Magnesium Oxide 400 MG Tab PO SCH (07:35)
[2020-07-23] MEDS: Miconazole 2% Top Powder 45 GM Container TOP SCH ×2 (07:35→19:24)
[2020-07-23] MEDS: Metoprolol Succinate 50 MG Tab.ER PO SCH (07:36)
[2020-07-23] MEDS: Insulin Lispro 100 Units/ML 3 ML Vial SUBCUT SCH ×3 (07:36→17:44)
[2020-07-23] MEDS: Cholecalciferol (Vitamin D3) 25 MCG Tab PO SCH (07:36)
[2020-07-23] MEDS: Insulin Glarg,Human.Rec.Analog 100 Unit/ML SUBCUT SCH (07:37)
[2020-07-24] MEDS: Lactobacillus Rhamnosus GG (Probiotic) Cap PO SCH ×2 (06:16→16:49)
[2020-07-24] MEDS: Insulin Lispro 100 Units/ML 3 ML Vial SUBCUT SCH ×4 (07:39→18:09)
[2020-07-24] MEDS: Insulin Glarg,Human.Rec.Analog 100 Unit/ML SUBCUT SCH (07:39)
[2020-07-24] MEDS: Lisinopril 20 MG Tab PO SCH (07:40)
[2020-07-24] MEDS: Aspirin 81 MG Tab.EC PO SCH (07:40)
[2020-07-24] MEDS: Miconazole 2% Top Powder 45 GM Container TOP SCH ×2 (07:40→20:15)
[2020-07-24] MEDS: Potassium Chloride 10 MEQ Tab.ER PO SCH (07:40)
[2020-07-24] MEDS: Cholecalciferol (Vitamin D3) 25 MCG Tab PO SCH (07:41)
[2020-07-24] MEDS: Metoprolol Succinate 50 MG Tab.ER PO SCH (07:41)
[2020-07-24] MEDS: Multivitamins with Iron/Calcium/Folic Acid/Minerals Tab PO SCH (07:41)
[2020-07-24] MEDS: Magnesium Oxide 400 MG Tab PO SCH (07:42)
[2020-07-25] MEDS: Lactobacillus Rhamnosus GG (Probiotic) Cap PO SCH (06:26)
[2020-07-25] MEDS ORDERED: Cholestyramine/Sucrose Powder 4 GM Packet PO SCH (08:45)
[2020-07-25 09:36] LABS: ANION GAP 14.7 mmol/L (5-15)
[2020-07-25] MEDS: Insulin Glarg,Human.Rec.Analog 100 Unit/ML SUBCUT SCH (09:49)
[2020-07-25] MEDS: Metoprolol Succinate 50 MG Tab.ER PO SCH (09:50)
[2020-07-25] MEDS: Lisinopril 20 MG Tab PO SCH (09:51)
[2020-07-25] MEDS: Potassium Chloride 10 MEQ Tab.ER PO SCH (09:51)
[2020-07-25] MEDS: Cholecalciferol (Vitamin D3) 25 MCG Tab PO SCH (09:51)
[2020-07-25] MEDS: Multivitamins with Iron/Calcium/Folic Acid/Minerals Tab PO SCH (09:51)
[2020-07-25] MEDS: Aspirin 81 MG Tab.EC PO SCH (09:51)
[2020-07-25] MEDS: Insulin Lispro 100 Units/ML 3 ML Vial SUBCUT SCH ×2 (09:52→11:31)
[2020-07-25] MEDS: Miconazole 2% Top Powder 45 GM Container TOP SCH (09:53)
[2020-07-25] MEDS: Magnesium Oxide 400 MG Tab PO SCH (09:57)
--- NOTE | 2020-07-25 18:49 | DISCH ---
PRIMARY DISCHARGE DIAGNOSES: 1. Acute small bowel obstruction, likely related to adhesion from previous surgery. Symptoms include nausea, vomiting, and diarrhea. 2. Intermittent diarrhea. Clostridium difficile test was not collected as diarrhea had stopped, but returned with 3 episodes during the night, it was felt that it was possibly due to a hamburger she ate as she has had previous troubles with hamburgers. 3. Acute renal failure due to her nausea, vomiting, and diarrhea, resolved. 4. Lactic acidosis, resolved. 5. History of recurrent urinary tract infections, but no urinary tract infection on this admission. 6. Uncontrolled diabetes, longstanding, probably relating to some of her medical conditions. 7. Remote history of colon cancer with no recent colonoscopies, but no blood in her stool. 8. Essential hypertension. 9. Atrial fibrillation, rate controlled, refusing Coumadin. 10.Gastroesophageal reflux disease. 11.Osteoarthritis. REASON FOR ADMISSION: On the date of admission, this 84-year-old female who had previously been admitted for other bowel obstruction, concern for even a bowel perforation or esophageal perforation last fall, but had refused to do TPN and was not interested in surgery, had went home. She had been readmitted for UTI and also pancreatitis, but over a month ago, and now was having nausea, vomiting, and diarrhea. Initially, felt to be the stomach flu, but x-rays and CT scans were confirming the bowel obstruction. NG was unable to be placed, but the patient clinically improved without it and was placed on swing bed on the date of 07/20/2020, but unfortunately that afternoon did start vomiting and having diarrhea again. The next morning, we just decided to see how things went and she gradually improved and was able to start eating and actually had been doing quite well all week until last night during the night, she had large stools and incontinence of stools, and is denying any stomach pain currently, but states she had crampy stomach pain before the stools occurred. The patient was given the option to stay on swing bed for further cares. However, she did not want to pay for it and did agree to go to the shelter for further cares, but then in the end she decided she was not going to do that and wanted to go home with her son. Discussion was had with the patient and the son. She is alert. She is competent to make those decisions. I have also talked to her daughter, Rayne. The patient is not interested in home health. Her son did bring that up as they will both be getting the COVID shot next week. In the end, I said I was not going to order it for her and go through all the steps in the nurse to come out again when Shaista sebastian was not interested in having them, and at this point, the patient more needs caregiver support for her hygiene with incontinence of bowel and bladder. The patient did receive one-half dose of Questran this morning, but I did not send her home on it due to my concern of recurrent bowel obstructions. She was getting magnesium supplement, so hopefully stopping that would help. OBJECTIVE: Vital Signs: On discharge, her vitals did show a temperature of 97.8, pulse 72, blood pressure 149/65, respiratory rate 16, and O2 of 94% on room air. General: She is in no acute distress. Heart: Irregularly irregular. Lungs: Her lung sounds are clear to auscultation bilaterally without crackles or wheezes. Abdomen: Nondistended, nontender. Extremities: Warm and dry. No edema. Mental Status: She is alert and orientated x3. LABORATORY DATA: White count 5.2, hemoglobin 12, platelets 496. Sodium 136, potassium 4.7, chloride 101, bicarb 25, BUN 7, creatinine 1. Glucose 222, but all readings had been in the 160 to 180 range. She was getting meal insulin here. We held her glipizide, but on discharge home I will restart that and stop the meal insulin. She does not routinely check blood sugars more than once a day at home. DISCHARGE PLANS AND INSTRUCTIONS: Lantus was increased up to 35 units and she should keep checking blood sugars once daily. She will eat bland foods like bananas, rice, toast, and applesauce, especially if she starts feeling poorly, and avoid foods that cause diarrhea. She will follow up in the clinic on 08/12/2020 and we will try to get her into the nurse to do some advanced care planning at that time. The patient will get her second COVID shot next week as scheduled. MKA: 07/25/2020 17:51:28 MODL: 07/25/2020 18:38:37 /[id number]
== END 2020-07-25 12:35 | disposition home or self-care (01) | DRG 948 ==
LOC: VM.MS 11:46
PROVIDERS: ADMIT Nurse Practitioner Family; ATTEND Internal Medicine
DX: R53.1 Weakness (principal); K56.609 Unspecified intestinal obstruction, unspecified as to partial versus complete obstruction; N17.9 Acute kidney failure, unspecified; E44.0 Moderate protein-calorie malnutrition; E87.1 Hypo-osmolality and hyponatremia; E11.65 Type 2 diabetes mellitus with hyperglycemia; I10 Essential (primary) hypertension; I48.91 Unspecified atrial fibrillation; Z20.822 Contact with and (suspected) exposure to COVID-19; K21.9 Gastro-esophageal reflux disease without esophagitis; M19.90 Unspecified osteoarthritis, unspecified site; M54.9 Dorsalgia, unspecified; G89.29 Other chronic pain; E78.5 Hyperlipidemia, unspecified; F41.9 Anxiety disorder, unspecified; E66.9 Obesity, unspecified; K76.0 Fatty (change of) liver, not elsewhere classified; Z85.038 Personal history of other malignant neoplasm of large intestine; Z87.440 Personal history of urinary (tract) infections; Z68.25 Body mass index [BMI] 25.0-25.9, adult
CPT/HCPCS: 36415; 80048; 80053; 82962; 83735; 85025; 97110-GP; 97116-GP; 97161-GP; 97535-GO; A9270-GY; J2405; J7120; U0002

== ENCOUNTER 2020-12-13 23:20 | Emergency (ER) | payer MEDICARE, OTHER ==
[2020-12-13] MEDS ORDERED: Sodium Chloride 0.9% 1,000 ML IV ONE (23:45)
[2020-12-13] MEDS ORDERED: Sodium Chloride 0.9% 10 ML Syringe FLUSH PRN (23:46)
[2020-12-13] MEDS ORDERED: Ondansetron 4 MG/2 ML SDV IVPUSH ONE (23:46)
--- NOTE | 2020-12-13 23:58 | EDM.PDOC ---
ED HPI GENERAL MEDICAL PROBLEM - General Chief Complaint: Gastrointestinal Problem Stated Complaint: nausea, vomiting weakness Time Seen by Provider: 12/13/20 23:30 Source of Information: Reports: Patient History Limitations: Reports: No Limitations - History of Present Illness INITIAL COMMENTS - FREE TEXT/NARRATIVE: Patient comes in the emergency room with complaint of nausea, vomiting, abdominal pain. Patient states that all 3 of her symptoms had started earlier in the day. She states that she had multiple episodes of vomiting throughout the day. She also did become fatigued and weak. She has a decrease in appetite. She states that she does feel better for short period of time after she vomits. She does not note any blood or coffee-ground appearance in her vomit. Patient denies any diarrhea at the present time. She also states that she said decreased amount of flatulence over the last 24 hours. Patient does have a strong history of colon and rectal issues involving surgery as well. Patient denies any fever, chest pain, shortness of breath, dizziness, lightheadedness, CMS concerns, or genitourinary concerns. Patient's family who is with her does state that she has had a history of UTIs in the past that has caused delirium that she was not aware that she had a UTI. Onset: Gradual Location: Reports: Abdomen Quality: Reports: Sharp Improves with: Reports: Other Worsens with: Reports: None Associated Symptoms: Reports: Loss of Appetite, Malaise, Nausea/Vomiting - Related Data Allergies Allergy/AdvReac Type Severity Reaction Status Date / Time atorvastatin [From Lipitor] AdvReac Unknown intolerance Verified 07/16/20 19:06 Home Meds: Home Meds Lisinopril 20 mg PO DAILY 03/03/15 [History] Acetaminophen [Tylenol] 650 mg PO Q4H PRN 04/19/19 [History] Melatonin 3 mg PO BEDTIME PRN 04/19/19 [History] L. Acidophilus/L.bulgaricus [Lactobacillus Tablet] 1 tab PO BIDAC 04/14/20 [History] glipiZIDE [Glucotrol] 10 mg PO BID@0700,1700 04/14/20 [History] Cholecalciferol (Vitamin D3) [Vitamin D3] 1,000 units PO DAILY 06/01/20 [History] Metoclopramide [Reglan] 5 mg PO DAILY PRN 06/01/20 [History] Multivitamin [Multi-Vitamin Daily] 1 tab PO DAILY 06/01/20 [History] Omeprazole 20 mg PO DAILY PRN 06/01/20 [History] Aspirin [Aspirin EC] 81 mg PO DAILY 06/02/20 [History] Insulin Glarg,Human.Rec.Analog [Lantus Solostar] 35 units SQ DAILY 07/16/20 [History] Metoprolol Succinate [Toprol XL 100mg] 100 mg PO DAILY 07/16/20 [History] Past Medical History HEENT History: Reports: Hard of Hearing, Other (See Below) Other HEENT History: wears glasses Cardiovascular History: Reports: Afib, High Cholesterol, Hypertension Respiratory History: Reports: None Gastrointestinal History: Reports: Other (See Below) Other Gastrointestinal History: malignant neoplasm of colon Genitourinary History: Reports: Other (See Below) Other Genitourinary History: mixed incontinence urge and stress. ecoli UTI Musculoskeletal History: Reports: Osteoarthritis, Other (See Below) Other Musculoskeletal History: trochanteric bursitis, spinal stenosis Neurological History: Reports: None Psychiatric History: Reports: Anxiety Endocrine/Metabolic History: Reports: Diabetes, Type II, Other (See Below) Other Endocrine/Metabolic History: Hyponatremia, lactic acidosis Hematologic History: Reports: None Oncologic (Cancer) History: Reports: Colon - Infectious Disease History Infectious Disease History: Reports: Chicken Pox - Past Surgical History GI Surgical History: Reports: Appendectomy, Cholecystectomy, Colon, Colonoscopy Other GI Surgeries/Procedures: colon resection 1999, Social & Family History - Family History Neurological: Reports: CVA - Caffeine Use Caffeine Use: Reports: Coffee, Tea - Living Situation & Occupation Living situation: Reports: , with Family (her son) Occupation: Retired (teacher) ED ROS GENERAL - Review of Systems Review Of Systems: Comprehensive ROS is negative, except as noted in HPI. Constitutional: Reports: Malaise, Fatigue HEENT: Reports: No Symptoms Respiratory: Reports: No Symptoms Cardiovascular: Reports: No Symptoms Endocrine: Reports: No Symptoms GI/Abdominal: Reports: Nausea, Vomiting : Reports: No Symptoms Musculoskeletal: Reports: No Symptoms Skin: Reports: No Symptoms Neurological: Reports: No Symptoms Psychiatric: Reports: No Symptoms Hematologic/Lymphatic: Reports: No Symptoms Immunologic: Reports: No Symptoms ED EXAM, GENERAL - Physical Exam Exam: See Below Exam Limited By: No Limitations General Appearance: Alert, WD/WN, No Apparent Distress, Other (unkept, strong cat urine smell ) Head: Atraumatic, Normocephalic Neck: Normal Inspection, Supple, Non-Tender, Full Range of Motion Respiratory/Chest: No Respiratory Distress, Lungs Clear, Normal Breath Sounds, No Accessory Muscle Use, Chest Non-Tender Cardiovascular: Normal Peripheral Pulses, Regular Rate, Rhythm, No Edema, No Rub GI/Abdominal: Abnormal Bowel Sounds (diminished on the right lower quadrant ) Neurological: Alert, Oriented, Normal Cognition, Normal Gait Psychiatric: Normal Affect, Normal Mood Skin Exam: Warm, Dry, Intact, Normal Color Course - Orders/Labs/Meds Orders: Active Orders 24 hr Category Date Time Status EKG Documentation Completion [RC] STAT Care 12/13/20 23:45 Ordered Abdomen Pelvis wo Cont [CT] Stat Exams 12/13/20 23:45 Ordered CBC WITH AUTO DIFF [HEME] Stat Lab 12/13/20 23:45 Ordered COMPREHENSIVE METABOLIC PN,CMP [CHEM] Stat Lab 12/13/20 23:45 Ordered UA RFX RICARDO AND CULT IF INDIC [URIN] Stat Lab 12/13/20 23:46 Ordered Sodium Chloride 0.9% [Normal Saline] 1,000 ml Med 12/13/20 23:45 Ordered IV ONETIME Sodium Chloride 0.9% [Saline Flush] Med 12/13/20 23:46 Ordered 10 ml FLUSH ASDIRECTED PRN Peripheral IV Insertion Adult [OM.PC] Stat Oth 12/13/20 23:45 Ordered Medication Orders Sodium Chloride (Normal Saline) 1,000 mls @ 1,000 mls/hr IV ONETIME ONE Stop: 12/14/20 00:44 Sodium Chloride (Sodium Chloride 0.9% 10 Ml Syringe) 10 ml FLUSH ASDIRECTED PRN PRN Reason: Keep Vein Open Meds: Medications Generic Name Dose Route Start Last Admin Trade Name Freq PRN Reason Stop Dose Admin Sodium Chloride 1,000 mls @ 1,000 mls/hr 12/13/20 23:45 Normal Saline IV 12/14/20 00:44 ONETIME ONE Sodium Chloride 10 ml 12/13/20 23:46 Sodium Chloride 0.9% 10 Ml Syringe FLUSH ASDIRECTED PRN Keep Vein Open Discontinued Medications Generic Name Dose Route Start Last Admin Trade Name Freq PRN Reason Stop Dose Admin Ondansetron HCl 4 mg 12/13/20 23:46 Ondansetron 4 Mg/2 Ml Sdv IVPUSH 12/13/20 23:47 ONETIME ONE - Re-Assessments/Exams Free Text/Narrative Re-Assessment/Exam: 12/14/20 01:02 Pt states she is feeling much better and would like to go home. We did discuss her elevated blood sugar but the patient states she will monitor and follow up as needed. Departure - Departure Time of Disposition: 01:00 Disposition: Home, Self-Care 01 Condition: Good Clinical Impression: Dehydration Gastritis Qualifiers: Gastritis type: unspecified gastritis Chronicity: acute Gastritis bleeding: without bleeding Qualified Code(s): K29.00 - Acute gastritis without bleeding - Discharge Information *PRESCRIPTION DRUG MONITORING PROGRAM REVIEWED*: Not Applicable *COPY OF PRESCRIPTION DRUG MONITORING REPORT IN PATIENT BARRETT: Not Applicable Instructions: Gastritis, Adult, [id number] Additional Instructions: 1. rest 2. increase your water intake 3. Continue all at home medications 4. Activity and diet as tolerated 5. Can take over the counter Tylenol for any pain or discomfort 6. Follow up with PCP if symptoms continue, return, or progress 7. Call with any questions or concerns - My Orders Last 24 Hours: My Active Orders 12/13/20 23:45 EKG Documentation Completion [RC] STAT Abdomen Pelvis wo Cont [CT] Stat CBC WITH AUTO DIFF [HEME] Stat COMPREHENSIVE METABOLIC PN,CMP [CHEM] Stat Sodium Chloride 0.9% [Normal Saline] 1,000 ml IV ONETIME Peripheral IV Insertion Adult [OM.PC] Stat 12/13/20 23:46 UA RFX RICARDO AND CULT IF INDIC [URIN] Stat Sodium Chloride 0.9% [Saline Flush] 10 ml FLUSH ASDIRECTED PRN - Assessment/Plan Last 24 Hours: My Active Orders 12/13/20 23:45 EKG Documentation Completion [RC] STAT Abdomen Pelvis wo Cont [CT] Stat CBC WITH AUTO DIFF [HEME] Stat COMPREHENSIVE METABOLIC PN,CMP [CHEM] Stat Sodium Chloride 0.9% [Normal Saline] 1,000 ml IV ONETIME Peripheral IV Insertion Adult [OM.PC] Stat 12/13/20 23:46 UA RFX RICARDO AND CULT IF INDIC [URIN] Stat Sodium Chloride 0.9% [Saline Flush] 10 ml FLUSH ASDIRECTED PRN Assessment:: 1. abdominal pain 2. nausea/vomiting 3. gastritis Plan: 1. Labs completed in the ER. Results reviewed with the patient 2. CT scan completed in the ER. Results reviewed with the patient 3. IV initiated in the emergency department 4. IV fluids provided 5. Pain medication given for severe pain and discomfort- pt declines needing any 6. Zofran given in the ER to help with nausea 7. Patient and nursing staff was updated regarding the plan of care 8. Patient and family are agreeable to the above plan of care 9. All questions and concerns were addressed with the patient and family prior to discharge
[2020-12-14 00:26] LABS: CHLORIDE,CL 102 mmol/L (98-107); SODIUM,NA 137 mmol/L (136-145)
[2020-12-14 00:28] LABS: ANION GAP 14.2 mmol/L (5-15)
[2020-12-14] MEDS ORDERED: Glucagon,Human Recombinant 1 MG Vial IM PRN (00:30)
[2020-12-14] MEDS ORDERED: Insulin Regular, Human 100 Units/ML 3 ML Vial IVPUSH ONE (00:30)
[2020-12-14] MEDS ORDERED: 50% Dextrose in Water 50 ML Syringe IVPUSH PRN (00:30)
--- NOTE | 2020-12-14 12:59 | CT ---
[id number] CT/CT Abdomen Pelvis WO IV . Exam: CT Abdomen Pelvis WO IV Clinical Data: ABDOMINAL PAIN COMPARISON: CORRELATION IS MADE WITH JULY 18, 2020 FINDINGS: The liver and spleen, kidneys and adrenals, pancreas and aorta are unremarkable The gallbladder has been removed There is motion artifact The pelvis shows no mass or adenopathy There is no evidence of appendicitis There is no free air or bowel obstruction IMPRESSION: NO ACUTE PROCESS Ricardo Sampson MD 12/14/20 [id number] Thank you for allowing us to participate in the care of your patient.
== END 2020-12-14 01:05 | disposition home or self-care (01) ==
LOC: VM.ED 23:20
DX: E86.0 Dehydration (principal); K29.00 Acute gastritis without bleeding; I48.91 Unspecified atrial fibrillation; I10 Essential (primary) hypertension; M19.90 Unspecified osteoarthritis, unspecified site; E11.9 Type 2 diabetes mellitus without complications; Z88.8 Allergy status to other drugs, medicaments and biological substances; Z79.82 Long term (current) use of aspirin; Z79.4 Long term (current) use of insulin; Z79.899 Other long term (current) drug therapy
CPT/HCPCS: 36415; 74176; 80053; 85025; 93005; 96374; 99284; 99284-25; J1815-GY; J2405; J7030

== ENCOUNTER 2020-12-30 12:27 | Emergency (ER) | payer MEDICARE, OTHER ==
[2020-12-30 13:25] LABS: ANION GAP 12.9 mmol/L (5-15); CHLORIDE,CL 102 mmol/L (98-107); SODIUM,NA 137 mmol/L (136-145)
--- NOTE | 2020-12-30 13:40 | CT ---
[id number] CT/CT Abdomen Pelvis WO IV Exam: CT Abdomen Pelvis WO IV Clinical Data: ABDOMINAL PAIN COMPARISON: CORRELATION IS MADE WITH DECEMBER 13, 2020 FINDINGS: There is no bowel obstruction. There is no free air or free fluid The liver and spleen, kidneys and adrenals, pancreas and aorta show no acute abnormality The pelvis shows no mass or abscess There is diverticulosis without diverticulitis IMPRESSION: NO ACUTE PROCESS Ricardo Sampson MD 12/30/20 [id number] Thank you for allowing us to participate in the care of your patient.
--- NOTE | 2020-12-30 13:55 | EDM.PDOC ---
ED HPI GENERAL MEDICAL PROBLEM - General Chief Complaint: Abdominal Pain Stated Complaint: abdominal pain Time Seen by Provider: 12/30/20 12:32 Source of Information: Reports: Patient History Limitations: Reports: No Limitations - History of Present Illness INITIAL COMMENTS - FREE TEXT/NARRATIVE: Patient presents to the ED with abdominal pain in the left lower quadrant. She states she has not had a bowel movement for 3 days, but has been eating and drinking and passing gas. She developed left lower abdominal pain at some point in the night. SHe did not eat today, but didnot throw up . Has not taken anything for this pain. Had similar pain a few weeks ago. NO concerns for covid. Nofevers, no cough or shortness of breath Onset: Today Location: Reports: Abdomen Severity: Mild Associated Symptoms: Reports: Loss of Appetite - Related Data Allergies Allergy/AdvReac Type Severity Reaction Status Date / Time atorvastatin [From Lipitor] AdvReac Unknown intolerance Verified 12/30/20 12:43 Home Meds: Home Meds Lisinopril 20 mg PO DAILY 03/03/15 [History] Acetaminophen [Tylenol] 650 mg PO Q4H PRN 04/19/19 [History] Melatonin 3 mg PO BEDTIME PRN 04/19/19 [History] L. Acidophilus/L.bulgaricus [Lactobacillus Tablet] 1 tab PO BIDAC 04/14/20 [History] Cholecalciferol (Vitamin D3) [Vitamin D3] 1,000 units PO DAILY 06/01/20 [History] Metoclopramide [Reglan] 5 mg PO DAILY PRN 06/01/20 [History] Multivitamin [Multi-Vitamin Daily] 1 tab PO DAILY 06/01/20 [History] Omeprazole 20 mg PO DAILY PRN 06/01/20 [History] Aspirin [Aspirin EC] 81 mg PO DAILY 06/02/20 [History] Insulin Glarg,Human.Rec.Analog [Lantus Solostar] 45 units SQ DAILY 07/16/20 [History] Metoprolol Succinate [Toprol XL 100mg] 100 mg PO DAILY 07/16/20 [History] Nitrofurantoin Monohyd/M-Cryst [Macrobid 100 mg Capsule] 100 mg PO BID 5 Days #10 capsule 12/30/20 [Rx] glipiZIDE [Glipizide ER] 10 mg PO DAILY 12/30/20 [History] Past Medical History HEENT History: Reports: Hard of Hearing, Other (See Below) Other HEENT History: wears glasses Cardiovascular History: Reports: Afib, High Cholesterol, Hypertension Respiratory History: Reports: None Gastrointestinal History: Reports: Other (See Below) Other Gastrointestinal History: malignant neoplasm of colon Genitourinary History: Reports: Other (See Below) Other Genitourinary History: mixed incontinence urge and stress. ecoli UTI Musculoskeletal History: Reports: Osteoarthritis, Other (See Below) Other Musculoskeletal History: trochanteric bursitis, spinal stenosis Neurological History: Reports: None Psychiatric History: Reports: Anxiety Endocrine/Metabolic History: Reports: Diabetes, Type II, Other (See Below) Other Endocrine/Metabolic History: Hyponatremia, lactic acidosis Hematologic History: Reports: None Oncologic (Cancer) History: Reports: Colon - Infectious Disease History Infectious Disease History: Reports: Chicken Pox - Past Surgical History GI Surgical History: Reports: Appendectomy, Cholecystectomy, Colon, Colonoscopy Other GI Surgeries/Procedures: colon resection 1999, Social & Family History - Family History Family Medical History: No Pertinent Family History Neurological: Reports: CVA - Tobacco Use Tobacco Use Status *Q: Unknown Ever Used Tobacco - Caffeine Use Caffeine Use: Reports: Coffee, Tea - Alcohol Use Alcohol Use History: No Alcohol Use in Last Twelve Months: No - Recreational Drug Use Recreational Drug Use: No Drug Use in Last 12 Months: No - Living Situation & Occupation Living situation: Reports: , with Family (her son) Occupation: Retired (teacher) ED ROS GENERAL - Review of Systems Review Of Systems: See Below Constitutional: Reports: No Symptoms, Fatigue. Denies: Fever, Chills, Malaise, Weakness, Night Sweats, Decreased Appetite HEENT: Reports: No Symptoms. Denies: Throat Swelling, Vision Change, Other Respiratory: Reports: No Symptoms. Denies: Shortness of Breath, Wheezing, Cough Cardiovascular: Reports: No Symptoms. Denies: Chest Pain, Blood Pressure Probl em, Claudication, Dyspnea on Exertion Endocrine: Reports: No Symptoms GI/Abdominal: Reports: Abdominal Pain, Anorexia, Constipation, Diarrhea. Denies : Black Stool, Bloody Stool, Difficulty Swallowing, Hematemesis, Hematochezia Musculoskeletal: Reports: No Symptoms. Denies: Shoulder Pain Skin: Reports: No Symptoms. Denies: Cyanosis, Jaundice ED EXAM, GI/ABD - Physical Exam Exam: See Below Exam Limited By: No Limitations General Appearance: Alert, WD/WN, No Apparent Distress, Other (stool under the nails and dried on her legs) Eyes: Bilateral: Normal Appearance, EOMI Ears: Normal External Exam, Normal Canal Nose: Normal Inspection, Normal Mucosa, No Blood. No: Nasal Swelling Throat/Mouth: Normal Inspection, Normal Lips, Normal Teeth, Normal Voice Head: Atraumatic, Normocephalic Neck: Normal Inspection, Supple, Non-Tender, Full Range of Motion. No: Lymphadenopathy (L), Lymphadenopathy (R) Respiratory/Chest: No Respiratory Distress, Lungs Clear, Normal Breath Sounds, No Accessory Muscle Use, Chest Non-Tender Cardiovascular: Normal Peripheral Pulses, Regular Rate, Rhythm, No Edema, No Murmur GI/Abdominal Exam: Normal Bowel Sounds Extremities: Pedal Edema Neurological: Alert, Oriented, CN II-XII Intact #1 Interpretation EKG Date: 12/30/20 Time: 12:45 Rhythm: NSR Harper: Normal P-Wave: Present QRS: Normal ST-T: Normal QT: Normal EKG Interpretation Comments: q waves noted , st flat diffuse Course - Vital Signs Last Recorded V/S: Last Vital Signs Temp 36.8 C 12/30/20 12:30 Pulse 76 12/30/20 12:30 Resp 16 12/30/20 12:30 BP 162/65 H 12/30/20 12:30 Pulse Ox 95 12/30/20 12:30 - Orders/Labs/Meds Orders: Active Orders 24 hr Category Date Time Status EKG Documentation Completion [RC] STAT Care 12/30/20 12:32 Active CULTURE URINE [RM] Stat Lab 12/30/20 14:29 Received Labs: Laboratory Tests 12/30/20 12/30/20 12/30/20 Range/Units 12:50 12:50 12:50 WBC 7.6 (4.0-10.0) x10^3/uL RBC 4.03 (4.00-5.50) x10^6/uL Hgb 12.4 D (12.0-16.0) g/dL Hct 35.5 (33.0-47.0) % MCV 88.1 (78.0-93.0) fL MCH 30.8 (26.0-32.0) pg MCHC 34.9 (32.0-36.0) g/dL RDW Coeff of Blanka 13.5 (10.0-15.0) % Plt Count 290 D (130-400) x10^3/uL Neut % (Auto) 65.7 (50.0-80.0) % Lymph % (Auto) 26.6 (25.0-50.0) % [place] % (Auto) 6.7 (2.0-11.0) % Eos % (Auto) 0.5 (0.0-4.0) % Baso % (Auto) 0.5 (0.2-1.2) % VBG pH (7.33-7.43) pH Sodium 137 (136-145) mmol/L Potassium 3.9 (3.5-5.1) mmol/L Chloride 102 (98-107) mmol/L Carbon Dioxide 26 (21-32) mmol/L Anion Gap 12.9 (5-15) mmol/L BUN 12 (7-18) mg/dL Creatinine 1.0 (0.55-1.02) mg/dL Est Cr Clr Drug Dosing TNP Estimated GFR (MDRD) 52 Glucose 173 H (70-99) mg/dL Lactic Acid 1.4 (0.4-2.0) mmol/L Calcium 9.7 (8.5-10.1) mg/dL Corrected Calcium 10.3 H (8.5-10.1) mg/dL Total Bilirubin 0.6 (0.2-1.0) mg/dL AST 13 L (15-37) U/L ALT 23 (14-59) U/L Alkaline Phosphatase 133 H (46-116) U/L Troponin I High Sens < 4 (<=51) ng/L C-Reactive Protein 0.5 (<=0.9) mg/dL Total Protein 7.0 (6.4-8.2) g/dL Albumin 3.2 L (3.4-5.0) g/dL Globulin 3.8 Albumin/Globulin Ratio 0.84 Lipase 180 (73-393) U/L Urine Color (YELLOW) Urine Appearance (CLEAR) Urine pH (5.0-8.0) Ur Specific [place] Urine Protein (NEGATIVE) mg/dL Urine Glucose (UA) (NEGATIVE) mg/dL Urine Ketones (NEGATIVE) mg/dL Urine Occult Blood (NEGATIVE) Urine Nitrite (NEGATIVE) Urine Bilirubin (NEGATIVE) Urine Urobilinogen (0.2) EU/dL Ur Leukocyte Esterase (NEGATIVE) U Hyaline Cast (Auto) Urine RBC (NOT SEEN) /HPF Urine WBC (NOT SEEN) /HPF Ur Squamous Epith Cells (NOT SEEN) /HPF Urine Bacteria (NOT SEEN) /HPF Urine Mucus (NOT SEEN) /LPF 12/30/20 12/30/20 Range/Units 12:50 14:29 WBC (4.0-10.0) x10^3/uL RBC (4.00-5.50) x10^6/uL Hgb (12.0-16.0) g/dL Hct (33.0-47.0) % MCV (78.0-93.0) fL MCH (26.0-32.0) pg MCHC (32.0-36.0) g/dL RDW Coeff of Blanka (10.0-15.0) % Plt Count (130-400) x10^3/uL Neut % (Auto) (50.0-80.0) % Lymph % (Auto) (25.0-50.0) % [place] % (Auto) (2.0-11.0) % Eos % (Auto) (0.0-4.0) % Baso % (Auto) (0.2-1.2) % VBG pH 7.48 H (7.33-7.43) pH Sodium (136-145) mmol/L Potassium (3.5-5.1) mmol/L Chloride (98-107) mmol/L Carbon Dioxide (21-32) mmol/L Anion Gap (5-15) mmol/L BUN (7-18) mg/dL Creatinine (0.55-1.02) mg/dL Est Cr Clr Drug Dosing Estimated GFR (MDRD) Glucose (70-99) mg/dL Lactic Acid (0.4-2.0) mmol/L Calcium (8.5-10.1) mg/dL Corrected Calcium (8.5-10.1) mg/dL Total Bilirubin (0.2-1.0) mg/dL AST (15-37) U/L ALT (14-59) U/L Alkaline Phosphatase (46-116) U/L Troponin I High Sens (<=51) ng/L C-Reactive Protein (<=0.9) mg/dL Total Protein (6.4-8.2) g/dL Albumin (3.4-5.0) g/dL Globulin Albumin/Globulin Ratio Lipase (73-393) U/L Urine Color Light yellow (YELLOW) Urine Appearance Cloudy H (CLEAR) Urine pH 7.0 (5.0-8.0) Ur Specific [place] 1.020 Urine Protein Negative (NEGATIVE) mg/dL Urine Glucose (UA) Negative (NEGATIVE) mg/dL Urine Ketones Negative (NEGATIVE) mg/dL Urine Occult Blood Trace-intact H (NEGATIVE) Urine Nitrite Negative (NEGATIVE) Urine Bilirubin Negative (NEGATIVE) Urine Urobilinogen 0.2 (0.2) EU/dL Ur Leukocyte Esterase Large H (NEGATIVE) U Hyaline Cast (Auto) Rare Urine RBC 0-5 (NOT SEEN) /HPF Urine WBC Packed H (NOT SEEN) /HPF Ur Squamous Epith Cells Few H (NOT SEEN) /HPF Urine Bacteria Moderate H (NOT SEEN) /HPF Urine Mucus Few H (NOT SEEN) /LPF Meds: Medications Discontinued Medications Generic Name Dose Route Start Last Admin Trade Name Freq PRN Reason Stop Dose Admin Acetaminophen 650 mg 12/30/20 14:38 Acetaminophen 325 Mg Tab PO 12/30/20 14:39 NOW ONE Ceftriaxone Sodium 1 gm 12/30/20 14:58 Ceftriaxone 1 Gm Vial IM 12/30/20 14:59 ONETIME ONE - Radiology Interpretation Free Text/Narrative:: Ct abdomen pelvis with IV contrast. NO acute process, interpreted by radiology - Re-Assessments/Exams Free Text/Narrative Re-Assessment/Exam: 12/30/20 13:45 will check labs and urine, ct abdomen without contrast. normal vitals. 14:12 testing is normal, awaiting a urine 12/30/20 15:05 Patient has a UTI. BAsed on last urine culture of e coli x 2, rocephin 1 gram IM now and macrobid. culture pending. return for fever or worsening , but no rmal WBC and ct today. Departure - Departure Time of Disposition: 15:01 Disposition: Home, Self-Care 01 Condition: Good Clinical Impression: Recurrent UTI - Discharge Information *PRESCRIPTION DRUG MONITORING PROGRAM REVIEWED*: Not Applicable *COPY OF PRESCRIPTION DRUG MONITORING REPORT IN PATIENT BARRETT: Not Applicable Prescriptions: Nitrofurantoin Monohyd/M-Cryst [Macrobid 100 mg Capsule] 100 mg PO BID 5 Days #10 capsule Instructions: Urinary Tract Infection, Adult, [id number] Referrals: Josefa Nguyen DO [Primary Care Provider] - 1 Week Forms: ED Department Discharge Additional Instructions: Labs and ct were normal today. Urine is infection. hydrate better. Treat pain with over the counter medications. You were given an injection of rocephin today ( antibiotic) and started on macrobid. Take this until gone. Urine culture is pending and we will notify you as to needs for changes in antibiotics. Antibiotic choice today was based on the sensitivities of your last urine culture. Sepsis Event Note (ED) - Focused Exam Vital Signs: Vital Signs Temp Pulse Resp BP Pulse Ox 12/30/20 12:30 36.8 C 76 16 162/65 H 95 - My Orders Last 24 Hours: My Active Orders 12/30/20 12:32 EKG Documentation Completion [RC] STAT 12/30/20 14:29 CULTURE URINE [RM] Stat - Assessment/Plan Last 24 Hours: My Active Orders 12/30/20 12:32 EKG Documentation Completion [RC] STAT 12/30/20 14:29 CULTURE URINE [RM] Stat
[2020-12-30] MEDS ORDERED: Acetaminophen 325 MG Tab PO ONE (14:38)
[2020-12-30] MEDS ORDERED: cefTRIAXone 1 GM Vial IM ONE (14:58)
== END 2020-12-30 15:34 | disposition home or self-care (01) ==
LOC: VM.ED 12:27
DX: N39.0 Urinary tract infection, site not specified (principal); I48.91 Unspecified atrial fibrillation; I10 Essential (primary) hypertension; M19.90 Unspecified osteoarthritis, unspecified site; E11.9 Type 2 diabetes mellitus without complications; Z88.8 Allergy status to other drugs, medicaments and biological substances; Z79.82 Long term (current) use of aspirin; Z79.4 Long term (current) use of insulin; Z79.899 Other long term (current) drug therapy
CPT/HCPCS: 36415; 74176; 80053; 81001; 82800; 83605; 83690; 84484; 85025; 86140; 87086; 87088; 87186; 93005; 93010; 96372; 99284; 99284-25; A9270-GY; J0696

== ENCOUNTER 2021-01-05 13:48 | Inpatient (IN) | payer MEDICARE, OTHER ==
[2021-01-05 14:48] LABS: PTT,PARTIAL THROMBOPLSTIN TIME 24.8 SEC (25.6-32.8)
[2021-01-05] MEDS ORDERED: cefTRIAXone 2 GM Vial IVPUSH ONE (14:58)
[2021-01-05 15:04] LABS: CHLORIDE,CL 100 mmol/L (98-107); SODIUM,NA 134 mmol/L (136-145)
[2021-01-05 15:11] LABS: ANION GAP 14.7 mmol/L (5-15)
--- NOTE | 2021-01-05 15:11 | EDM.PDOC ---
ED HPI GENERAL MEDICAL PROBLEM - General Chief Complaint: Flank Pain Time Seen by Provider: 01/05/21 13:52 Source of Information: Reports: Patient History Limitations: Reports: No Limitations - History of Present Illness INITIAL COMMENTS - FREE TEXT/NARRATIVE: Pt. presents to ER with complaints of continued abdominal pain. Pt. was seen in ER on 12/30 for the same and was worked up and found to have a UTI. She was initially started on macrobid awaiting urine cultures/susceptibility. Urine grew resistant proteus and e coli, both of which were susceptible to cefuroxime which she was changed to on 01/01. Pt. underwent non-contrast abdominal/pelvis CT which was negative for acute pathology. Pt. complains that she is still experiencing L sided abdominal discomfort, fatigue, and generally doesn't feel well. She denies any nausea or vomiting. No chest pain or shortness of breath. She states that she does feel quite weak, and is concerned the antibiotic isn't working. Onset Date: 12/30/20 Location: Reports: Abdomen, Generalized - Related Data Allergies Allergy/AdvReac Type Severity Reaction Status Date / Time atorvastatin [From Lipitor] AdvReac Unknown intolerance Verified 01/05/21 14:03 Home Meds: Home Meds Lisinopril 20 mg PO DAILY 03/03/15 [History] Acetaminophen [Tylenol] 650 mg PO Q4H PRN 04/19/19 [History] Melatonin 3 mg PO BEDTIME PRN 04/19/19 [History] L. Acidophilus/L.bulgaricus [Lactobacillus Tablet] 1 tab PO BIDAC 04/14/20 [History] Cholecalciferol (Vitamin D3) [Vitamin D3] 1,000 units PO DAILY 06/01/20 [History] Metoclopramide [Reglan] 5 mg PO DAILY PRN 06/01/20 [History] Multivitamin [Multi-Vitamin Daily] 1 tab PO DAILY 06/01/20 [History] Omeprazole 20 mg PO DAILY PRN 06/01/20 [History] Aspirin [Aspirin EC] 81 mg PO DAILY 06/02/20 [History] Insulin Glarg,Human.Rec.Analog [Lantus Solostar] 45 units SQ DAILY 07/16/20 [History] Metoprolol Succinate [Toprol XL 100mg] 100 mg PO DAILY 07/16/20 [History] Nitrofurantoin Monohyd/M-Cryst [Macrobid 100 mg Capsule] 100 mg PO BID 5 Days #10 capsule 12/30/20 [Rx] glipiZIDE [Glipizide ER] 10 mg PO DAILY 12/30/20 [History] Past Medical History HEENT History: Reports: Hard of Hearing, Other (See Below) Other HEENT History: wears glasses Cardiovascular History: Reports: Afib, High Cholesterol, Hypertension Respiratory History: Reports: None Gastrointestinal History: Reports: Other (See Below) Other Gastrointestinal History: malignant neoplasm of colon Genitourinary History: Reports: Other (See Below) Other Genitourinary History: mixed incontinence urge and stress. ecoli UTI Musculoskeletal History: Reports: Osteoarthritis, Other (See Below) Other Musculoskeletal History: trochanteric bursitis, spinal stenosis Neurological History: Reports: None Psychiatric History: Reports: Anxiety Endocrine/Metabolic History: Reports: Diabetes, Type II, Other (See Below) Other Endocrine/Metabolic History: Hyponatremia, lactic acidosis Hematologic History: Reports: None Oncologic (Cancer) History: Reports: Colon - Infectious Disease History Infectious Disease History: Reports: Chicken Pox - Past Surgical History GI Surgical History: Reports: Appendectomy, Cholecystectomy, Colon, Colonoscopy Other GI Surgeries/Procedures: colon resection 1999, Social & Family History - Family History Family Medical History: No Pertinent Family History Neurological: Reports: CVA - Tobacco Use Tobacco Use Status *Q: Unknown Ever Used Tobacco - Caffeine Use Caffeine Use: Reports: Coffee, Tea - Living Situation & Occupation Living situation: Reports: , with Family (her son) Occupation: Retired (teacher) ED ROS GENERAL - Review of Systems Review Of Systems: See Below Constitutional: Reports: No Symptoms HEENT: Reports: No Symptoms Respiratory: Reports: No Symptoms Cardiovascular: Reports: No Symptoms Endocrine: Reports: No Symptoms GI/Abdominal: Reports: Abdominal Pain. Denies: Black Stool, Bloody Stool, Hematemesis, Hematochezia : Reports: No Symptoms Musculoskeletal: Reports: No Symptoms Skin: Reports: No Symptoms Neurological: Reports: No Symptoms Psychiatric: Reports: No Symptoms Hematologic/Lymphatic: Reports: No Symptoms Immunologic: Reports: No Symptoms ED EXAM, GENERAL - Physical Exam Exam: See Below Exam Limited By: No Limitations General Appearance: Alert, WD/WN, No Apparent Distress Neck: Normal Inspection, Supple, Non-Tender Respiratory/Chest: No Respiratory Distress, Lungs Clear, Normal Breath Sounds, No Accessory Muscle Use, Chest Non-Tender Cardiovascular: Normal Peripheral Pulses, Regular Rate, Rhythm, No JVD, No Murmur GI/Abdominal: Soft, No Distention, No Mass, Tender. No: Guarding, Rigid (Female) Exam: Deferred Rectal (Female) Exam: Deferred Back Exam: Normal Inspection, Full Range of Motion Extremities: Normal Inspection, Non-Tender, No Pedal Edema Neurological: Alert, Oriented, CN II-XII Intact, Normal Cognition, Normal Gait, Normal Reflexes, No Motor/Sensory Deficits Psychiatric: Normal Affect, Normal Mood Skin Exam: Warm, Dry, Intact, No Rash, Pallor Course - Vital Signs Last Recorded V/S: Last Vital Signs Temp 36.9 C 01/05/21 13:52 Pulse 71 01/05/21 13:52 Resp 18 01/05/21 13:52 BP 155/59 H 01/05/21 13:52 Pulse Ox 95 01/05/21 13:52 - Orders/Labs/Meds Orders: Active Orders 24 hr Category Date Time Status Patient Status [ADT] Routine ADT 01/05/21 15:21 Ordered CULTURE BLOOD [BC] Stat Lab 01/05/21 15:00 Ordered CULTURE BLOOD [BC] Stat Lab 01/05/21 15:00 Ordered CULTURE URINE [RM] Stat Lab 01/05/21 14:39 Received REFLEX LACTIC ACID YES OR NO [CHEM] Routine Lab 01/05/21 14:53 Received Sodium Chloride 0.9% @ 150 MLS/HR (1000ml) Med 01/05/21 15:30 Ordered Sodium Chloride 0.9% [Normal Saline] 1,000 ml IV ASDIRECTED Blood Culture x2 Reflex Set [OM.PC] Stat Oth 01/05/21 15:00 Ordered Medication Orders Sodium Chloride (Normal Saline) 1,000 mls @ 150 mls/hr IV ASDIRECTED MARIAH Last Admin: 01/05/21 15:24 Dose: 150 mls/hr Documented by: Labs: Laboratory Tests 01/05/21 01/05/21 01/05/21 Range/Units 14:18 14:18 14:18 WBC 5.2 (4.0-10.0) x10^3/uL RBC 3.89 L (4.00-5.50) x10^6/uL Hgb 11.9 L (12.0-16.0) g/dL Hct 34.4 (33.0-47.0) % MCV 88.4 (78.0-93.0) fL MCH 30.6 (26.0-32.0) pg MCHC 34.6 (32.0-36.0) g/dL RDW Coeff of [place] 13.5 (10.0-15.0) % Plt Count 321 (130-400) x10^3/uL Neut % (Auto) 51.0 (50.0-80.0) % Lymph % (Auto) 40.3 (25.0-50.0) % [place] % (Auto) 7.7 (2.0-11.0) % Eos % (Auto) 0.6 (0.0-4.0) % Baso % (Auto) 0.4 (0.2-1.2) % PT 10.9 (9.9-12.5) SEC INR 1.0 L (2.0-3.5) APTT 24.8 L (25.6-32.8) SEC Sodium 134 L (136-145) mmol/L Potassium 4.7 (3.5-5.1) mmol/L Chloride 100 (98-107) mmol/L Carbon Dioxide 24 (21-32) mmol/L Anion Gap 14.7 (5-15) mmol/L BUN 13 (7-18) mg/dL Creatinine 1.0 (0.55-1.02) mg/dL Est Cr Clr Drug Dosing TNP Estimated GFR (MDRD) 52 Glucose 302 H (70-99) mg/dL Lactic Acid (0.4-2.0) mmol/L Calcium 9.5 (8.5-10.1) mg/dL Corrected Calcium 10.4 H (8.5-10.1) mg/dL Magnesium 2.2 (1.8-2.4) mg/dL Total Bilirubin 0.3 (0.2-1.0) mg/dL AST 15 (15-37) U/L ALT 23 (14-59) U/L Alkaline Phosphatase 118 H (46-116) U/L C-Reactive Protein 0.2 (<=0.9) mg/dL Total Protein 6.3 L (6.4-8.2) g/dL Albumin 2.9 L (3.4-5.0) g/dL Globulin 3.4 Albumin/Globulin Ratio 0.85 Procalcitonin (0.1-0.50) ng/mL Urine Color (YELLOW) Urine Appearance (CLEAR) Urine pH (5.0-8.0) Ur Specific [place] Urine Protein (NEGATIVE) mg/dL Urine Glucose (UA) (NEGATIVE) mg/dL Urine Ketones (NEGATIVE) mg/dL Urine Occult Blood (NEGATIVE) Urine Nitrite (NEGATIVE) Urine Bilirubin (NEGATIVE) Urine Urobilinogen (0.2) EU/dL Ur Leukocyte Esterase (NEGATIVE) Urine RBC (NOT SEEN) /HPF Urine WBC (NOT SEEN) /HPF Ur Squamous Epith Cells (NOT SEEN) /HPF Urine Bacteria (NOT SEEN) /HPF Urine Mucus (NOT SEEN) /LPF Urine Yeast (Budding) (NONE - FEW) /HPF 01/05/21 01/05/21 01/05/21 Range/Units 14:18 14:18 14:39 WBC (4.0-10.0) x10^3/uL RBC (4.00-5.50) x10^6/uL Hgb (12.0-16.0) g/dL Hct (33.0-47.0) % MCV (78.0-93.0) fL MCH (26.0-32.0) pg MCHC (32.0-36.0) g/dL RDW Coeff of [place] (10.0-15.0) % Plt Count (130-400) x10^3/uL Neut % (Auto) (50.0-80.0) % Lymph % (Auto) (25.0-50.0) % [place] % (Auto) (2.0-11.0) % Eos % (Auto) (0.0-4.0) % Baso % (Auto) (0.2-1.2) % PT (9.9-12.5) SEC INR (2.0-3.5) APTT (25.6-32.8) SEC Sodium (136-145) mmol/L Potassium (3.5-5.1) mmol/L Chloride (98-107) mmol/L Carbon Dioxide (21-32) mmol/L Anion Gap (5-15) mmol/L BUN (7-18) mg/dL Creatinine (0.55-1.02) mg/dL Est Cr Clr Drug Dosing Estimated GFR (MDRD) Glucose (70-99) mg/dL Lactic Acid 2.4 H* (0.4-2.0) mmol/L Calcium (8.5-10.1) mg/dL Corrected Calcium (8.5-10.1) mg/dL Magnesium (1.8-2.4) mg/dL Total Bilirubin (0.2-1.0) mg/dL AST (15-37) U/L ALT (14-59) U/L Alkaline Phosphatase (46-116) U/L C-Reactive Protein (<=0.9) mg/dL Total Protein (6.4-8.2) g/dL Albumin (3.4-5.0) g/dL Globulin Albumin/Globulin Ratio Procalcitonin <0.05 L (0.1-0.50) ng/mL Urine Color Dark yellow H (YELLOW) Urine Appearance Cloudy H (CLEAR) Urine pH 5.5 (5.0-8.0) Ur Specific [place] 1.015 Urine Protein Negative (NEGATIVE) mg/dL Urine Glucose (UA) 500 H (NEGATIVE) mg/dL Urine Ketones Negative (NEGATIVE) mg/dL Urine Occult Blood Trace-intact H (NEGATIVE) Urine Nitrite Negative (NEGATIVE) Urine Bilirubin Negative (NEGATIVE) Urine Urobilinogen 0.2 (0.2) EU/dL Ur Leukocyte Esterase Trace H (NEGATIVE) Urine RBC 5-10 H (NOT SEEN) /HPF Urine WBC 5-10 H (NOT SEEN) /HPF Ur Squamous Epith Cells Moderate H (NOT SEEN) /HPF Urine Bacteria Occasional H (NOT SEEN) /HPF Urine Mucus Few H (NOT SEEN) /LPF Urine Yeast (Budding) Few (NONE - FEW) /HPF Meds: Medications Generic Name Dose Route Start Last Admin Trade Name Freq PRN Reason Stop Dose Admin Sodium Chloride 1,000 mls @ 150 mls/hr 01/05/21 15:30 01/05/21 15:24 Normal Saline IV 150 mls/hr ASDIRECTED MARIAH Administration Discontinued Medications Generic Name Dose Route Start Last Admin Trade Name Freq PRN Reason Stop Dose Admin Ceftriaxone Sodium 2 gm 01/05/21 14:58 01/05/21 15:19 Ceftriaxone 2 Gm Vial IVPUSH 01/05/21 14:59 2 gm STAT ONE Administration - Re-Assessments/Exams Free Text/Narrative Re-Assessment/Exam: IV access established. Pt. was started on IV NS at 150ml/hr. Pt. was given rocephin 2 gm IV. Blood cultures were obtained prior to starting rocephin. Departure - Departure Time of Disposition: 15:31 Disposition: Admitted As Inpatient 64 Clinical Impression: UTI, Urinary tract infectious disease, Sepsis - Discharge Information Referrals: Josefa Nguyen DO [Primary Care Provider] - Forms: ED Department Discharge Sepsis Event Note (ED) - Focused Exam Vital Signs: Vital Signs Temp Pulse Resp BP Pulse Ox 01/05/21 13:52 36.9 C 71 18 155/59 H 95 - Problem List Review Problem List Initiated/Reviewed/Updated: Yes - My Orders Last 24 Hours: My Active Orders 01/05/21 14:39 CULTURE URINE [RM] Stat 01/05/21 14:53 REFLEX LACTIC ACID YES OR NO [CHEM] Routine 01/05/21 15:00 CULTURE BLOOD [BC] Stat CULTURE BLOOD [BC] Stat Blood Culture x2 Reflex Set [OM.PC] Stat 01/05/21 15:21 Patient Status [ADT] Routine 01/05/21 15:30 Sodium Chloride 0.9% @ 150 MLS/HR (1000ml) Sodium Chloride 0.9% [Normal Saline] 1,000 ml IV ASDIRECTED - Assessment/Plan Last 24 Hours: My Active Orders 01/05/21 14:39 CULTURE URINE [RM] Stat 01/05/21 14:53 REFLEX LACTIC ACID YES OR NO [CHEM] Routine 01/05/21 15:00 CULTURE BLOOD [BC] Stat CULTURE BLOOD [BC] Stat Blood Culture x2 Reflex Set [OM.PC] Stat 01/05/21 15:21 Patient Status [ADT] Routine 01/05/21 15:30 Sodium Chloride 0.9% @ 150 MLS/HR (1000ml) Sodium Chloride 0.9% [Normal Saline] 1,000 ml IV ASDIRECTED Plan: Pt. will be admitted acute. Dr. Nguyen will be admitting/attending. Pt. will be started on IV rocephin 2 gm daily. Normal saline at 150ml/hr. Covid is pending.
[2021-01-05] MEDS: Sodium Chloride 0.9% 1,000 ML IV SCH (15:24)
[2021-01-05] MEDS ORDERED: Ondansetron 4 MG/2 ML SDV IV PRN (16:47)
[2021-01-05] MEDS ORDERED: Ondansetron 4 MG Tab.DIS PO PRN (16:47)
[2021-01-05] MEDS ORDERED: Omeprazole 20 MG Cap.CR PO PRN (16:54)
[2021-01-05] MEDS ORDERED: 50% Dextrose in Water 50 ML Syringe IVPUSH PRN ×2 (16:55→16:57)
[2021-01-05] MEDS ORDERED: Glucagon,Human Recombinant 1 MG Vial IM PRN ×2 (16:55→16:57)
[2021-01-05] MEDS ORDERED: Insulin Glarg,Human.Rec.Analog 100 Unit/ML SUBCUT ONE (16:58)
[2021-01-05] MEDS: metroNIDAZOLE/Normal Saline 500 MG in Premix Bag 1 BAG IV SCH (17:54)
[2021-01-05] MEDS ORDERED: Insulin Lispro 100 Units/ML 3 ML Vial SUBCUT SCH (18:00)
[2021-01-05] MEDS: Insulin Lispro 100 Units/ML 3 ML Vial SUBCUT SCH (19:09)
--- NOTE | 2021-01-05 21:24 | HP ---
CHIEF COMPLAINT: Abdominal pain. HISTORY OF PRESENT ILLNESS: This is an 85-year-old, well known to myself for frequent hospital admissions for UTI, bowel obstruction, possible esophageal tear, and pancreatitis, who came into the emergency room on 12/13/2020 with some vague left lower abdominal pain, nausea, and vomiting. She has had multiple recurrent urinary tract infections. On that 1st visit, she was diagnosed with gastritis and dehydration and sent home and told to push fluids, but on her return to the ER on 12/30/2020, her culture grew E coli and Proteus, so she was placed on Macrobid. When the culture returned resistant, she was then placed on cephalosporin, cefuroxime, however, she continued to have left lower quadrant pain that she rates as worse than 5, does not seem to be affected by eating. Her bowels are moving. She had 1 yesterday. No blood. She does not think she has had diverticulitis, but she does have a history of colon cancer. She has not thrown up. She did not take her insulin today. She lives at home with her son. She has been very resistant to moving into a custodial. The patient has not had any burning with urination or blood in her urine. No back pain. No cough. No shortness of breath. ALLERGIES: Atorvastatin. MEDICATION LIST: Currently includes vitamin D daily, glipizide 10 mg daily, lactobacillus daily, Reglan 5 mg p.r.n. for nausea, multivitamin daily, Macrobid, Tylenol as needed, aspirin 81 mg daily, Lantus previously increased to 45 units daily, lisinopril 10 mg daily, melatonin 3 mg at bedtime as needed for sleep, metoprolol 100 mg daily, Prilosec 20 mg daily. PAST MEDICAL HISTORY: Includes type 2 diabetes, uncontrolled on long-term insulin use, previous A1c is over 9 with unspecified complications; paroxysmal atrial fibrillation, in the past she has refused Coumadin; hyperlipidemia; essential hypertension; history of colon cancer, status post surgery; mixed urinary incontinence with recurrent UTIs; osteoarthritis; and spinal stenosis. PAST SURGICAL HISTORY: She has had a cholecystectomy. She has had colon resection for cancer, previous appendectomy. SOCIAL HISTORY: . Lives at home with her son. She is a retired teacher. Nonsmoker. No alcohol use. She also has a daughter, I believe lives in [place]. FAMILY HISTORY: Both parents are . Sister did of colon cancer. REVIEW OF SYSTEMS: Constitutional: The patient has had some weakness when she has been ill. She denies any known changes in her weight. She has had no fever or chills. HEENT: No trouble swallowing. Cardiac: No chest pain, no shortness of breath, no palpitations. Respiratory: No cough. Abdomen: As stated in the HPI. Denies diarrhea. : She has incontinence. She denies any burning or blood. Otherwise, all systems reviewed and found to be negative unless otherwise stated. PHYSICAL EXAMINATION: Vital Signs: Today, the patient had a temperature in the emergency room 98.5, pulse 71, blood pressure 155/59, respiratory rate 18, and O2 of 95% on room air. General: She is in no acute distress. Heart: Regular rate and rhythm. Lungs: Lung sounds are clear to auscultation bilaterally without crackles or wheezes. Abdomen: Positive bowel sounds. Soft, nondistended, but tenderness in the left lower quadrant without rebound or guarding. She has no flank pain. Skin: She does have no open ulcers or sores on her feet, but they are quite dirty with thick and overgrown nails. No redness or warmth in her feet. Her backside and buttocks are examined. She does have some external hemorrhoids. There are just some areas of redness possibly early stage I pressure ulcers on the coccyx. Mental Status: She is alert. She is orientated x3. She answers all questions appropriately. She is not depressed or anxious. LABORATORY DATA: Her lab work does show her to have 5.2 white count, hemoglobin 11.9, platelets 321. INR 1. Sodium 134, potassium 4.7, chloride 100, bicarb 21, BUN 13, creatinine 1, glucose 302 it was 448 when she was in on the 24th, lactic 2.4, calcium 9.5, magnesium 2.2, bilirubin 0.3, AST 15, ALT 23, alkaline phosphatase 118. CRP was 0.2, normal. Procalcitonin less than 0.05, normal. Albumin 3.4. Lipase on the 10th was normal, pending today. Urine which did have packed wbc's on the 10th is 5-10 and 5-10 rbc's. COVID is negative. The patient has been vaccinated. No imaging completed today, but she did have a noncontrast abdominal CT on the , which showed no acute intraabdominal process. No bowel obstruction. There is diverticulosis without diverticulitis at that time. ASSESSMENT AND PLAN: 1. Urinary tract infection, recurrent, failing outpatient oral antibiotics with Escherichia coli and Proteus. We will admit her and place her on IV Rocephin. 2. Left lower quadrant pain, not improving, possibly diverticulitis. We will add IV Flagyl. Did discuss CT with the patient. At this point, she prefers to try some modified bowel rest, antibiotics, and pain control and see if that helps. 3. Uncontrolled type 2 diabetes. She did not take her insulin today. We will give her 20 units of Lantus. We will hold her glipizide and give her 7 units t.i.d. with meals. She is hoping to eat some. I will put her on a clear liquid diet. We will do q.i.d. Accu-Cheks. 4. Essential hypertension. We will continue her home medications. 5. Paroxysmal atrial fibrillation. She is currently in sinus. We will continue her beta fe. 6. Deep vein thrombosis prophylaxis. I will place her on Lovenox. 7. Stage I pressure ulcer. We will have barrier cream and local cares. We will also try to get her in the tub and clean her up. PLAN: The patient will be admitted to acute cares for some IV fluids, IV antibiotics, IV Dilaudid for pain control. She will have oral Tylenol available. We will allow her oral medications as she is able to take them and a clear liquid diet to advance as tolerated. If any vomiting, we will repeat abdominal x-rays or even a CT with contrast. We will do q.i.d. Accu-Cheks. We will place her on meal insulin. She is a code level 3. We will get therapies involved. We will hold off on director of social services as patient continues to be very resistant to going to long-term care. She has actually stayed out of the hospital now about 6 months. MKA: 01/05/2021 17:08:40 MODL: 01/05/2021 21:16:15 /[id number] [place]
[2021-01-05] MEDS: Acetaminophen 325 MG Tab PO PRN (21:34)
[2021-01-05] MEDS: Melatonin 3 MG Tab PO PRN (23:24)
[2021-01-06] MEDS: metroNIDAZOLE/Normal Saline 500 MG in Premix Bag 1 BAG IV SCH ×3 (00:24→18:14)
[2021-01-06] MEDS: HYDROmorphone 0.5 MG/0.5 ML Syringe IVPUSH PRN ×2 (02:44→09:46)
[2021-01-06] MEDS: Sodium Chloride 0.9% 1,000 ML IV SCH (05:29)
[2021-01-06 07:00] LABS: ANION GAP 14.7 mmol/L (5-15); CHLORIDE,CL 106 mmol/L (98-107); SODIUM,NA 139 mmol/L (136-145)
[2021-01-06] MEDS ORDERED: Lisinopril 10 MG Tab PO SCH (08:00)
[2021-01-06] MEDS: Aspirin 81 MG Tab.EC PO SCH (09:40)
[2021-01-06] MEDS: Metoprolol Succinate 50 MG Tab.ER PO SCH (09:40)
[2021-01-06] MEDS: Insulin Lispro 100 Units/ML 3 ML Vial SUBCUT SCH ×3 (09:47→18:13)
[2021-01-06] MEDS: Insulin Glarg,Human.Rec.Analog 100 Unit/ML SUBCUT SCH (09:50)
[2021-01-06] MEDS ORDERED: cefTRIAXone 1 GM Vial IV SCH (10:00)
[2021-01-06] MEDS: Enoxaparin 40 MG/0.4 ML Syringe SUBCUT SCH (12:20)
--- NOTE | 2021-01-06 17:08 | PN ---
Progress Note for JUDAH WRIGHT Date: 01/06/2021 Room #: .204 SUBJECTIVE: This is hospital day #2 on an 85-year-old admitted with significant left lower quadrant pain and recurrent UTI. Her white count was normal. Her CRP was normal. Her procalcitonin was normal, but her lactic was 2.4, but improved to 2.1. She did get a dose of Dilaudid and her pain has nearly resolved. She tolerated a liquid diet and would like to start on a regular diet. She does have diabetes. Her blood sugars were quite high over 300 but improved with insulin. She did not take her doses at home yesterday. She has been afebrile. Blood pressure running a little higher systolic this morning. She has been on IV fluids, but is able to eat and drink okay on her own. She has not had any shortness of breath. She is just having some mild cough. OBJECTIVE: Vital Signs: Her weight is 81.6 kg, temperature 98, pulse 70, blood pressure 142/60, respiratory rate 15, and O2 of 91 on room air, but 95 on room air earlier. General: She is in no acute distress. Heart: Irregularly irregular. Lungs: Lung sounds are decreased in the bases, but no crackles. No wheezes. Abdomen: Positive bowel sounds. Soft, nondistended, nontender. Extremities: Warm and dry. No edema. Mental Status: Alert and orientated x3. LABORATORY DATA: Lab work shows white count 4.9, hemoglobin stable at 11.6, platelets 311. Sodium 139, potassium 3.7, chloride 106, bicarb 22, BUN 10, creatinine 0.8. Glucose this morning 167, but 221 last night. Calcium 8.8, bilirubin 0.5, ALT and AST normal, alkaline phosphatase now normal at 106, albumin down to 2.8. Urine culture so far no growth. ASSESSMENT: 1. Proteus and Escherichia coli urinary tract infection, failing outpatient treatment, now on day #2. IV Rocephin, we will continue with 1 g daily. 2. Left lower quadrant pain, possible diverticulitis. She is on day #2 of IV Flagyl. We will continue with the same. 3. Uncontrolled diabetes. Blood sugars improved on increased insulin and adding meal insulin. 4. Essential hypertension. She is on her home lisinopril. 5. Paroxysmal atrial fibrillation. She has been refusing Coumadin. She is on her home beta fe. 6. DVT prophylaxis. 7. Stage I sacral ulcer. PLAN: We will continue IV antibiotics. We will repeat lab work tomorrow. We will advance her diet. We will have her Lovenox for DVT prophylaxis. We will get her up and working with therapies. Anticipate she may be able to be discharged home as soon as tomorrow. The patient is resistant to going to assisted living or the prison. She lives with her son. Honestly, she is doing better this time than we have seen her on other visits in the past. MKA: 01/06/2021 16:51:40 MODL: 01/06/2021 17:05:45 /[id number]
[2021-01-06] MEDS: Acetaminophen 325 MG Tab PO PRN (20:21)
[2021-01-06] MEDS: Melatonin 3 MG Tab PO PRN (20:21)
[2021-01-07] MEDS: metroNIDAZOLE/Normal Saline 500 MG in Premix Bag 1 BAG IV SCH ×2 (00:10→08:05)
[2021-01-07 06:59] LABS: CHLORIDE,CL 107 mmol/L (98-107); SODIUM,NA 140 mmol/L (136-145)
[2021-01-07 07:00] LABS: ANION GAP 12.8 mmol/L (5-15)
[2021-01-07] MEDS: Aspirin 81 MG Tab.EC PO SCH (08:00)
[2021-01-07] MEDS: Lisinopril 20 MG Tab PO SCH (08:00)
[2021-01-07] MEDS: Metoprolol Succinate 50 MG Tab.ER PO SCH (08:01)
[2021-01-07] MEDS: Insulin Lispro 100 Units/ML 3 ML Vial SUBCUT SCH ×3 (08:02→18:17)
[2021-01-07] MEDS: Enoxaparin 40 MG/0.4 ML Syringe SUBCUT SCH (08:02)
[2021-01-07] MEDS: Insulin Glarg,Human.Rec.Analog 100 Unit/ML SUBCUT SCH (08:03)
[2021-01-07] MEDS ORDERED: Glucagon,Human Recombinant 1 MG Vial IM PRN (09:03)
[2021-01-07] MEDS ORDERED: 50% Dextrose in Water 50 ML Syringe IVPUSH PRN (09:03)
[2021-01-07] MEDS ORDERED: cefTRIAXone 1 GM Vial IVPUSH ONE (10:00)
--- NOTE | 2021-01-07 10:21 | PN ---
Progress Note for JUDAH WRIGHT Date: 01/07/2021 Room #: [facility] SUBJECTIVE: This is hospital day #3 on an 85-year-old admitted with left lower quadrant pain and a urinary tract infection, failing outpatient treatment. The patient did get a dose of IV Dilaudid yesterday morning, but had reported her abdominal pain to have been significantly improved from the day before. She has not had any med since. She has eaten 100% of all meals. She is having bowel movements. She is denying that she is having any cough, but does have a little bit of a sore throat. She is doing like 1700 on the incentive spirometry. She is not requiring any oxygen. Blood sugars have still been running high in the 200s. She is not on meal insulin at home. OBJECTIVE: Vital Signs: Her temperature is 98.5, pulse 77, blood pressure 133/71, respiratory rate 18, and O2 of 94% on room air. General: She is in no acute distress. Heart: Regularly irregular. Lungs: Sounds show some crackles in the bases. Abdomen: Nondistended, positive bowel sounds, soft. Tender in the left lower quadrant, but no rebound, no guarding, no masses. Extremities: Warm and dry. No edema. They are warm. No redness. Mental Status: She is alert, she is orientated x3. LABORATORY DATA: Lab work shows white count normal 4.5, hemoglobin 12, platelets 314. Sodium 140, potassium 3.8, chloride 107, bicarb 21, BUN 9, creatinine 0.8, glucose 204, calcium 9.2. ASSESSMENT: 1. Left lower quadrant pain, likely diverticulitis. She will get her last dose of IV Rocephin this morning. She is currently getting IV Flagyl. Then, we will switch her over to Augmentin oral starting tonight. 2. Proteus and Escherichia coli urinary tract infection, sensitive and indeterminate to the Augmentin, but it was previously sensitive to the Macrobid and Rocephin, so starting treatment already on 12/30. I feel her urinary tract infection symptoms are covered and likely she will need antibiotics for discharge more to cover diverticulitis. 3. Uncontrolled diabetes. We will increase her insulin to 50 units daily starting tomorrow morning especially at home because she will not be on meal insulin, and I will give her an extra 10 units of Lantus tonight. 4. Essential hypertension, controlled on home medications. 5. Paroxysmal atrial fibrillation. She is on a beta fe. She refuses Coumadin. 6. Deep venous thrombosis prophylaxis with Lovenox. 7. Stage I sacral ulcer. This is just at risk area of skin. We are using barrier cream. No other wound coverings needed. PLAN: The patient will continue acute cares. We will get her seen by PT, up and moving around today. We will switch her over to oral antibiotics, likely discharge to home tomorrow. She is resistant in the past to home health or going into assisted living. MKA: 01/07/2021 09:12:52 MODL: 01/07/2021 10:16:05 /[id number]
--- NOTE | 2021-01-07 10:36 | CR ---
[id number] RAD/RAD Chest PA or AP 1V EXAM: SINGLE VIEW CHEST. INDICATION: CRACKLES ON AUSCULTATION COMPARISON: CORRELATION IS MADE WITH JULY 16, 2020 FINDINGS: The lungs are clear The cardiomediastinal contour is prominent but stable. Degenerative changes of the right shoulder are seen IMPRESSION: NO PNEUMONIA OR EDEMA Ricardo Sampson MD 01/07/21 [id number] Thank you for allowing us to participate in the care of your patient.
[2021-01-07] MEDS: Amoxicillin/Clavulanate K 875-125 MG Tab PO SCH (19:28)
[2021-01-07] MEDS: Melatonin 3 MG Tab PO PRN (19:37)
[2021-01-07] MEDS ORDERED: Insulin Glarg,Human.Rec.Analog 100 Unit/ML SUBCUT ONE (20:00)
[2021-01-08] MEDS: HYDROmorphone 0.5 MG/0.5 ML Syringe IVPUSH PRN (02:53)
[2021-01-08] MEDS: Amoxicillin/Clavulanate K 875-125 MG Tab PO SCH (07:36)
[2021-01-08] MEDS: Enoxaparin 40 MG/0.4 ML Syringe SUBCUT SCH (07:36)
[2021-01-08] MEDS: Aspirin 81 MG Tab.EC PO SCH (07:36)
[2021-01-08] MEDS: Lisinopril 20 MG Tab PO SCH (07:37)
[2021-01-08] MEDS: Insulin Lispro 100 Units/ML 3 ML Vial SUBCUT SCH ×2 (07:37→12:42)
[2021-01-08] MEDS: Metoprolol Succinate 50 MG Tab.ER PO SCH (07:38)
[2021-01-08] MEDS ORDERED: Insulin Glarg,Human.Rec.Analog 100 Unit/ML SUBCUT SCH (08:00)
--- NOTE | 2021-01-08 14:40 | DISCH ---
PRIMARY DISCHARGE DIAGNOSES: 1. Urinary tract infection secondary to Escherichia coli and Proteus, failing outpatient antibiotics. 2. Left lower quadrant pain, clinical, diverticulitis, improving. 3. History of colon cancer. No recent colonoscopy surveillance. 4. Uncontrolled diabetes due to missing insulin doses. Insulin increased to 50 units during her stay and she was given meal insulin. 5. Essential hypertension. 6. Paroxysmal atrial fibrillation. 7. Stage I sacral pressure ulcer. Skin appears intact. We will just continue a barrier cream. This was present on admission. REASON FOR ADMISSION: On the date of admission, this 85-year-old female, who is well known to the hospital for previous admissions for abdominal pain due to bowel obstructions or pancreatitis, but also recurrent urinary tract infections, had made 3 trips into the emergency room. She was given Macrobid first, then based on cultures, switched over to a cephalosporin, but unfortunately she continued to have a positive UA, although this culture did not grow anything. Based on her sensitivity, she was placed on IV Rocephin, and due to left lower quadrant pain, she was placed on IV Flagyl, and she clinically improved. She did receive a dose of IV Dilaudid. CT scan was not repeated as it was done on her previous ER visit, and at that time she had diverticulosis but not diverticulitis. The patient tolerated a clear liquid diet and she was asking for it to be advanced by her next hospital morning, it was. She was eating 100% of her meals. She was having bowel movements. She was voiding okay with no residual. She does have chronic incontinence. Overall, she was clinically improving. She was getting up, working with therapies, and decision was made that she was stable for discharge home. The patient has been resistant to home health and retirement in the past. She lives at home with her son and is wanting to return home. OBJECTIVE: Vital Signs: On discharge, her temperature was 98.2, her pulse 93, blood pressure 144/74, her respiratory rate 16, and O2 of 94% on room air. General: She is in no acute distress today. Heart: Regular rate and rhythm. S1, S2. Lungs: Sounds are clear to auscultation bilaterally without crackles or wheezes. Chest x-ray was okay yesterday. Abdomen: Has positive bowel sounds. It is soft, nondistended, nontender. Extremities: Warm and dry. No edema. Mental Status: She is alert and orientated x3. DISCHARGE PLANS AND INSTRUCTIONS: The patient will follow up in the clinic with myself in 1 to 2 weeks. No routine hospital followup, lab work is due. She will take Tylenol if needed for pain. She will take Augmentin for 3 more days to treat her diverticulitis. She will also be on probiotics or yogurt for the next 2 weeks and insulin Lantus was increased from 45 to 50 units daily. MKA: 01/08/2021 09:08:44 MODL: 01/08/2021 09:25:08 /[id number]
== END 2021-01-08 12:50 | disposition home or self-care (01) | DRG 690 ==
LOC: VM.ED 13:48 → VM.MS 15:21
PROVIDERS: ADMIT Internal Medicine; ATTEND Internal Medicine
DX: A41.9 Sepsis, unspecified organism (principal); N39.0 Urinary tract infection, site not specified; H54.7 Unspecified visual loss; K57.32 Diverticulitis of large intestine without perforation or abscess without bleeding; I48.0 Paroxysmal atrial fibrillation; L89.151 Pressure ulcer of sacral region, stage 1; I10 Essential (primary) hypertension; E11.622 Type 2 diabetes mellitus with other skin ulcer; E11.65 Type 2 diabetes mellitus with hyperglycemia; M48.00 Spinal stenosis, site unspecified; F41.9 Anxiety disorder, unspecified; E11.9 Type 2 diabetes mellitus without complications; M19.90 Unspecified osteoarthritis, unspecified site; Z20.822 Contact with and (suspected) exposure to COVID-19; E78.5 Hyperlipidemia, unspecified; B96.20 Unspecified Escherichia coli [E. coli] as the cause of diseases classified elsewhere; E78.00 Pure hypercholesterolemia, unspecified; H91.90 Unspecified hearing loss, unspecified ear; I48.91 Unspecified atrial fibrillation; N39.46 Mixed incontinence; Z85.038 Personal history of other malignant neoplasm of large intestine; Z88.8 Allergy status to other drugs, medicaments and biological substances; Z79.82 Long term (current) use of aspirin; Z79.4 Long term (current) use of insulin; Z90.49 Acquired absence of other specified parts of digestive tract; Z79.899 Other long term (current) drug therapy
CPT/HCPCS: 36415; 71045; 80048; 80053; 81001; 82947; 83605; 83690; 83735; 84145; 85025; 85610; 85730; 86140; 87040; 87086; 96374; 97161-GP; 97165-GO; 99284; 99285-25; A9270-GY; J0696; J1170; J1650; J1815-GY; J2405; J3490; J7030; U0002